=== PATIENT | female | born 1950 | race African-American/Black ===

== ENCOUNTER 2016-11-08 10:30 | Emergency (ER) | payer MEDICARE ==
[~2016-11-08] VITALS: Ht 157.5 cm; Wt 60.8 kg
[~2016-11-08 10:30] MED LIST: AMLO10TA2 PO; ASPI325T4 PO; BENZ100C2 PO; BIMA2.5D EACHEYE; CLOP75TA PO; CYCL10TA2 PO; FOLI0.8T21 PO; GLIP5TAB22 PO; HYDR-2666 PO; HYDR100T24 PO; HYDR12.58 PO; ISOS60TA2 PO; LOSA50TA6 PO; MELO-150 PO; METO25TA4 PO; SODI650T PO; SPIR25TA3 PO; TRAM50TA PO; VITA1CAP PO
--- NOTE | 2016-11-08 11:15 | ED.ADGEN ---
Past History Past Medical History: Bronchitis, Cancer, CHF, CVA, Diabetes, High Cholesterol , Hypertension, Renal Disease, Renal Failure Past Surgical History: Hysterectomy, Other Smoking: Cigarettes Alcohol Use: None Drug Use: None Adult General HPI HPI Patient is a 7 he 5-year-old female presents emergency department by EMS for chest pain. Patient was at dialysis she mentioned that she had had a few moments of chest pain earlier in the day. The subcutaneous dialysis as stated that she had a comfortable evaluation. Patient was not having chest pain at that time nor she had a sense. She did not want to come for evaluation but dialysis said they would not continue until she did. Patient has no other associated symptoms such as nausea, vomiting, diaphoresis, or dyspnea. Patient has had an GA in the past and states that the pain she felt earlier today was nothing similar. Review of Systems Review of Systems Constitutional: Denies fever or chills [] Eyes: Denies change in visual acuity, redness, or eye pain [] HENT: Denies nasal congestion or sore throat [] Respiratory: Denies cough or shortness of breath [] Cardiovascular: No additional information not addressed in HPI [] GI: Denies abdominal pain, nausea, vomiting, bloody stools or diarrhea [] : Denies dysuria or hematuria [] Musculoskeletal: Denies back pain or joint pain [] Integument: Denies rash or skin lesions [] Neurologic: Denies headache, focal weakness or sensory changes [] Endocrine: Denies polyuria or polydipsia [] Allergies Allergies Allergies Coded Allergies Type Severity Reaction Last Updated Verified DAISHA Inhibitors Allergy Intermediate 07/23/14 Yes Sulfa (Sulfonamide Antibiotics) Allergy Intermediate Rash 07/23/14 Yes atorvastatin Allergy Intermediate 07/23/14 Yes Physical Exam Physical Exam Constitutional: Well developed, well nourished, no acute distress, non-toxic appearance. [] HENT: Normocephalic, atraumatic, bilateral external ears normal, oropharynx moist, no oral exudates, nose normal. [] Eyes: PERRLA, EOMI, conjunctiva normal, no discharge. [] Neck: Normal range of motion, no tenderness, supple, no stridor. [] Cardiovascular:Heart rate regular rhythm, no murmur [] Lungs & Thorax: Bilateral breath sounds clear to auscultation [] Abdomen: Bowel sounds normal, soft, no tenderness, no masses, no pulsatile masses. [] Skin: Warm, dry, no erythema, no rash. [] Back: No tenderness, no CVA tenderness. [] Extremities: No tenderness, no cyanosis, no clubbing, ROM intact, no edema. [] Neurologic: Alert and oriented X 3, normal motor function, normal sensory function, no focal deficits noted. [] Psychologic: Affect normal, judgement normal, mood normal. [] Current Patient Data Vital Signs Vital Signs Date Time Temp Pulse Resp B/P Pulse Ox O2 Delivery O2 Flow Rate FiO2 11/08/16 11:37 72 18 148/58 100 Room Air Lab Results Laboratory Tests Test 11/08/16 11:08 11/08/16 11:09 POC Hemoglobin 10.9gm/dL POC Hematocrit 32% POC Sodium 142mmol/L (135-145) POC Potassium 4.1mmol/L (3.5-5.0) POC Chloride 104mmol/L (98-110) POC Total CO2 24mmol/L (23-32) Anion Gap 20mmol/L (6-14) H POC Blood Urea Nitrogen 51mg/dL (8-26) H POC Creatinine 9.5mg/dL (0.5-1.4) H Glucose Level 136mg/dL (60-99) H POC Ionized Calcium (Roni) 0.94mmol/L (1.13-1.32) L POC Troponin I 0.01ng/ml (<0.08) EKG EKG KD interpreted by me, normal sinus rhythm, 73 beats for minute, leftward axis, no ST segment elevation. No peaked t-waves[] Radiology/Procedures Radiology/Procedures [] Course & Med Decision Making Course & Med Decision Making Pertinent Labs and Imaging studies reviewed. (See chart for details) Patient remained asymptomatic. Her EKG and blood work are reassuring. She is being discharged to return to dialysis. She will return emergency department she develops any new or worsening symptoms. [] Final Impression Final Impression Chest pain [] Problems: Dragon Disclaimer Dragon Disclaimer This electronic medical record was generated, in whole or in part, using a voice recognition dictation system. CHRISTIANA CARVAJAL MD Nov 08, 2016 11:15
[2016-11-08 11:21] LABS: HEMOGLOBIN ISTAT 10.9 gm/dL; POTASSIUM ISTAT 4.1 mmol/L (3.5-5.0)
[2016-11-08 11:37] VITALS: BP 148/58
--- NOTE | 2016-11-09 08:11 | EKG ---
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
== END 2016-11-08 11:55 | disposition home or self-care (01) ==
LOC: ER 10:30
DX: R07.9 Chest pain, unspecified (principal); I13.0 Hypertensive heart and chronic kidney disease with heart failure and stage 1 through stage 4 chronic kidney disease, or unspecified chronic kidney disease; N18.9 Chronic kidney disease, unspecified; I50.9 Heart failure, unspecified; E11.22 Type 2 diabetes mellitus with diabetic chronic kidney disease; I25.2 Old myocardial infarction; F17.210 Nicotine dependence, cigarettes, uncomplicated; E78.00 Pure hypercholesterolemia, unspecified; Z86.73 Personal history of transient ischemic attack (TIA), and cerebral infarction without residual deficits; Z99.2 Dependence on renal dialysis; Z88.2 Allergy status to sulfonamides; Z88.8 Allergy status to other drugs, medicaments and biological substances
CPT/HCPCS: 80047; 84484; 93005; 99284-25

== ENCOUNTER 2017-02-16 09:17 | Emergency (ER) | payer MEDICARE ==
[~2017-02-16 09:17] MED LIST changes: -ASPI325T4 PO; +ASPI325T8 PO; +BENZ100C15 PO; -BENZ100C2 PO; +CYCL-331 PO; -CYCL10TA2 PO; -HYDR-2666 PO; +HYDR-2758 PO; -MELO-150 PO; +MELO15TA23 PO
--- NOTE | 2017-02-16 09:54 | PHYS DOC ---
Past History Past Medical History: Bronchitis, Cancer, CHF, CVA, Diabetes, High Cholesterol , Hypertension, Renal Disease, Renal Failure Past Surgical History: Hysterectomy, Other Smoking: Cigarettes Alcohol Use: None Drug Use: None Adult General Chief Complaint Chief Complaint: dizziness, altered mental status HPI HPI Patient is a 66 year old female who presents with complaint of generalized weakness. Patient states that she awoke at 8:00 this morning feeling very weak. Patient states that she ambulated herself to the restroom to urinate, upon trying to return, she stated that her legs were both very weak and unable to support her body weight. She states that her daughter came to her home and called EMS to have patient brought to the emergency department for evaluation. Patient states that she has been having dizziness but denies any chest pain, abdominal pain, fever, or unilateral weakness at this time. Patient states that she is unable lift her legs up off of the bed due to weakness. Patient denies any loss of sensation in her extremities. Patient has history of congestive heart failure and CVA. Patient follows a Dr. Karli Fu for primary care. Patient was last seen at her baseline at 2200 last night. Review of Systems Review of Systems Constitutional: Denies fever or chills [] Eyes: Denies change in visual acuity, redness, or eye pain [] HENT: Denies nasal congestion or sore throat [] Respiratory: Denies cough or shortness of breath [] Cardiovascular: Denies chest pain or edema [] GI: Denies abdominal pain, nausea, vomiting, bloody stools or diarrhea [] : Denies dysuria or hematuria [] Musculoskeletal: Denies back pain or joint pain [] Integument: Denies rash or skin lesions [] Neurologic: Generalized weakness, dizziness, denies focal weakness or sensory changes [] Current Medications Current Medications Current Medications Medications (Trade) Dose Ordered Sig/Deysi Start Time Stop Time Status Last Admin Dose Admin Sodium Chloride 500 ml @ 0 mls/hr 1X ONCE 02/16/17 09:45 02/16/17 09:46 UNV Allergies Allergies Allergies Coded Allergies Type Severity Reaction Last Updated Verified DAISHA Inhibitors Allergy Intermediate 07/23/14 Yes Sulfa (Sulfonamide Antibiotics) Allergy Intermediate Rash 07/23/14 Yes atorvastatin Allergy Intermediate 07/23/14 Yes Physical Exam Physical Exam Constitutional: Alert, afebrile, mild slurring speech. [] HENT: Normocephalic, atraumatic, bilateral external ears normal, oropharynx moist, no oral exudates, nose normal. [] Eyes: PERRLA, EOMI, conjunctiva normal, no discharge. [] Neck: Normal range of motion, no tenderness, supple, no stridor. [] Cardiovascular:Heart rate regular rhythm, no murmur [] Lungs & Thorax: Bilateral breath sounds clear to auscultation [] Abdomen: Bowel sounds normal, soft, no tenderness, no masses, no pulsatile masses. [] Skin: Warm, dry, no erythema, no rash. [] Back: No tenderness, no CVA tenderness. [] Extremities: No tenderness, no cyanosis, no clubbing, ROM intact, no edema. [] Neurologic: Alert and oriented X 3, 3 out of 5 strength in the bilateral lower extremities, 4 out of 5 strength in the bilateral upper extremities, left lateral visual field defect, jboss architect strength equal bilaterally. [] Current Patient Data Vital Signs Vital Signs Date Time Temp Pulse Resp B/P (MAP) Pulse Ox O2 Delivery O2 Flow Rate FiO2 02/16/17 10:43 81 16 193/108 (136) 100 02/16/17 09:17 97.9 Room Air Lab Results Laboratory Tests Test 02/16/17 09:35 White Blood Count 9.7 x10^3/uL Red Blood Count 3.50 x10^6/uL Hemoglobin 10.1 g/dL Hematocrit 30.3 % Mean Corpuscular Volume 87 fL Mean Corpuscular Hemoglobin 29 pg Mean Corpuscular Hemoglobin Concent 33 g/dL Red Cell Distribution Width 14.6 % Platelet Count 282 x10^3/uL Neutrophils (%) (Auto) 57 % Lymphocytes (%) (Auto) 31 % Monocytes (%) (Auto) 11 % Eosinophils (%) (Auto) 1 % Basophils (%) (Auto) 1 % Neutrophils # (Auto) 5.5 x10^3uL Lymphocytes # (Auto) 3.0 x10^3/uL Monocytes # (Auto) 1.0 x10^3/uL Eosinophils # (Auto) 0.1 x10^3/uL Basophils # (Auto) 0.1 x10^3/uL Sodium Level 143 mmol/L Potassium Level 4.0 mmol/L Chloride Level 101 mmol/L Carbon Dioxide Level 34 mmol/L Anion Gap 8 Blood Urea Nitrogen 25 mg/dL Creatinine 7.6 mg/dL Estimated GFR (Cockcroft-Gault) 6.5 BUN/Creatinine Ratio 3 Glucose Level 102 mg/dL Calcium Level 9.2 mg/dL Magnesium Level 2.4 mg/dL Total Bilirubin 0.3 mg/dL Aspartate Amino Transf (AST/SGOT) 24 U/L Alanine Aminotransferase (ALT/SGPT) < 6 U/L Alkaline Phosphatase 115 U/L Troponin I Quantitative 0.440 ng/mL XL-Pru-S-Type Natriuretic Peptide 68157 pg/mL Total Protein 7.6 g/dL Albumin 3.6 g/dL Albumin/Globulin Ratio 0.9 Current Medications Medications (Trade) Dose Ordered Sig/Deysi Route PRN Reason Start Time Stop Time Status Last Admin Dose Admin Sodium Chloride 500 ml @ 0 mls/hr 1X ONCE IV 02/16/17 10:30 02/16/17 10:31 DC Lidocaine/ Prilocaine (Emla) 5 mark STK-MED ONCE TP 02/16/17 10:16 02/16/17 10:17 DC EKG EKG Interpreted by me: Heart rate 73, sinus rhythm, normal intervals, left axis deviation, no acute ST/T-wave abnormalities present [] Radiology/Procedures Radiology/Procedures [address] [address] IMAGING REPORT Signed PATIENT: FAIZAN ROJAS ACCOUNT: [id number] : 1950 LOCATION: ER AGE: 66 SEX: F EXAM STATUS: PRE ER ORD. PHYSICIAN: JENIFER NGUYỄN MD REASON: weakness, history of CHF PROCEDURE: PORTABLE CHEST 1V Portable chest, 02/16/2017: History: Weakness, congestive heart failure Comparison is made to a study from 07/07/2016. The heart size and pulmonary vascularity are normal. There is calcific plaquing and mild tortuosity of the thoracic aorta. No pulmonary infiltrate is seen. There is no evidence of pleural fluid. IMPRESSION: No acute cardiopulmonary abnormality is detected. DICTATED AND SIGNED BY: LIMA PALMA MD DATE: 02/16/17 1026 CC: KARLI RUTHERFORD DO; JENIFER NGUYỄN MD ~ [address] [address] IMAGING REPORT Signed PATIENT: FAIZAN ROJAS ACCOUNT: [id number] : 1950 LOCATION: ER AGE: 66 SEX: F EXAM STATUS: PRE ER ORD. PHYSICIAN: JENIFER NGUYỄN MD REASON: generalized weakness PROCEDURE: CT HEAD WO CONTRAST CT of the head without contrast, 02/16/2017: History: Generalized body weakness Comparison is made to a study from 12/28/2013. There is an unchanged lucency within the anterolateral aspect of the right basal ganglia compatible with an old infarct. The ventricles are within normal limits in size. There is no shift of the midline structures. There is no evidence of acute intracranial hemorrhage or mass effect. No abnormal extra-axial fluid collection or mass is seen. IMPRESSION: 1. Old right basal ganglia infarct. 2. No acute intracranial abnormality is detected. PQRS Compliance Statement: One or more of the following individualized dose reduction techniques were utilized for this examination: 1. Automated exposure control 2. Adjustment of the mA and/or kV according to patient size 3. Use of iterative reconstruction technique DICTATED AND SIGNED BY: LIMA PALMA MD DATE: 02/16/17 1102 CC: KARLI RUTHERFORD DO; JENIFER NGUYỄN MD ~ [] Course & Med Decision Making Course & Med Decision Making Pertinent Labs and Imaging studies reviewed. (See chart for details) The patient has an NIHSS score of 10 defined by moderate to severe weakness of the bilateral lower extremities, mild sensory loss along left forehead, mild slurring of speech, left lateral visual field loss, and moderate limb ataxia of the lower extremities. The patient was also found to have elevated troponin level which may be related to patient's end-stage renal disease. The patient's EKG does not show acute evidence of ischemia at this time. Patient's CT of the head shows no acute findings. The onset of patient's symptoms cannot be verified as patient awoke with the symptoms and her last known well was at 2200 yesterday. The patient does not meet criteria for administration of TPA. Patient started on oral aspirin. The patient however will need admission to the hospital for further care and workup. The patient's daughter who has DURABLE POWER OF CRUTCHING CONTRACTOR as requested that the patient be admitted at [facility] for further care. She has requested this despite the patient being a candidate for admission at [facility]. Due to patient's family's wishes, [facility] was contacted. After discussing the case, the patient was accepted for admission by Dr. Barragan at 1140. The patient was transferred at 1420 by ground ambulance to [facility] in stable condition. Dragon Disclaimer Dragon Disclaimer This chart was dictated in whole or in part using Voice Recognition software in a busy, high-work load, and often noisy Emergency Department environment. It may contain unintended and wholly unrecognized errors or omissions. Departure Departure: Impression: Primary Impression: Weakness of both legs Additional Impressions: End stage renal disease Congestive heart failure Elevated troponin level Essential hypertension History of CVA (cerebrovascular accident) Disposition: 05 XFER OTHER Condition: STABLE Referrals: KARLI RUTHERFORD DO (PCP) Problem Qualifiers Additional Impressions: Congestive heart failure Congestive heart failure type: unspecified congestive heart failure type Congestive heart failure chronicity: unspecified congestive heart failure chronicity Qualified Codes: I50.9 - Heart failure, unspecified JENIFER NGUYỄN MD Feb 16, 2017 09:54
[2017-02-16 09:57] LABS: BASO # 0.1 x10^3/uL (0.0-0.2); BASO % 1 % (0-3); EOS # 0.1 x10^3/uL (0.0-0.7); EOS % 1 % (0-3); HEMATOCRIT 30.3 % (36.0-47.0); HEMOGLOBIN 10.1 g/dL (12.0-15.5); LYMPH % 31 % (24-48); MEAN CORPUSCULAR HEMOGLOBIN 29 pg (25-35); MEAN CORPUSCULAR HGB CONC 33 g/dL (31-37); MEAN CORPUSCULAR VOLUME 87 fL (79-100); MONO % 11 % (0-9); NEUT # 5.5 x10^3uL (1.8-7.7); NEUT % 57 % (31-73); PLATELET COUNT 282 x10^3/uL (140-400); RED CELL DISTRIBUTION WIDTH 14.6 % (11.5-14.5); WHITE BLOOD COUNT 9.7 x10^3/uL (4.0-11.0)
[2017-02-16 10:15] LABS: ALBUMIN 3.6 g/dL (3.4-5.0); ALBUMIN/GLOBULIN RATIO 0.9 (1.0-1.7); ALK PHOS 115 U/L (46-116); ANION GAP 8 (6-14); AST (SGOT) 24 U/L (15-37); BLOOD UREA NITROGEN 25 mg/dL (7-20); BUN/CREATININE RATIO 3 (6-20); CALCIUM 9.2 mg/dL (8.5-10.1); CARBON DIOXIDE 34 mmol/L (21-32); CHLORIDE 101 mmol/L (98-107); CREATININE 7.6 mg/dL (0.6-1.0); GFR 6.5; GLUCOSE 102 mg/dL (70-99); MAGNESIUM 2.4 mg/dL (1.8-2.4); SODIUM 143 mmol/L (136-145); TOTAL BILIRUBIN 0.3 mg/dL (0.2-1.0); TOTAL PROTEIN 7.6 g/dL (6.4-8.2)
[2017-02-16] MEDS ORDERED: LIDOCAINE/PRILOCAINE TOPICAL CREAM 5GM TUBE. TP ONE (10:16)
[2017-02-16 10:17] LABS: ALT (SGPT) < 6 U/L (14-59)
[2017-02-16] MEDS ORDERED: IV NORMAL SALINE 500ML 500 ML IV ONE (10:30)
--- NOTE | 2017-02-16 10:31 | RAD ---
Portable chest, 02/16/2017: History: Weakness, congestive heart failure Comparison is made to a study from 07/07/2016. The heart size and pulmonary vascularity are normal. There is calcific plaquing and mild tortuosity of the thoracic aorta. No pulmonary infiltrate is seen. There is no evidence of pleural fluid. IMPRESSION: No acute cardiopulmonary abnormality is detected.
--- NOTE | 2017-02-16 11:06 | RAD ---
CT of the head without contrast, 02/16/2017: History: Generalized body weakness Comparison is made to a study from 12/28/2013. There is an unchanged lucency within the anterolateral aspect of the right basal ganglia compatible with an old infarct. The ventricles are within normal limits in size. There is no shift of the midline structures. There is no evidence of acute intracranial hemorrhage or mass effect. No abnormal extra-axial fluid collection or mass is seen. IMPRESSION: 1. Old right basal ganglia infarct. 2. No acute intracranial abnormality is detected. PQRS Compliance Statement: One or more of the following individualized dose reduction techniques were utilized for this examination: 1. Automated exposure control 2. Adjustment of the mA and/or kV according to patient size 3. Use of iterative reconstruction technique
[2017-02-16 12:23] LABS: BACTERIA,URINE 0 /HPF (0-FEW); BILIRUBIN,URINE NEG (NEG); CLARITY,URINE CLEAR; COLOR,URINE YELLOW; GLUCOSE,URINE NEG (NEG); NITRITE,URINE NEG (NEG); UROBILINOGEN,URINE 0.2 mg/dL (0.2 mg/dL); WBC,URINE 0 /HPF (0-4)
[2017-02-16] MEDS ORDERED: ASPIRIN 81 MG TAB.CHEW PO ONE (13:50)
[2017-02-16 14:00] VITALS: BP 196/83
--- NOTE | 2017-02-16 15:09 | EKG ---
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
== END 2017-02-16 14:16 | disposition short-term general hospital (02) ==
LOC: ER 09:17
DX: R53.1 Weakness (principal); I13.2 Hypertensive heart and chronic kidney disease with heart failure and with stage 5 chronic kidney disease, or end stage renal disease; N18.6 End stage renal disease; I50.9 Heart failure, unspecified; E11.22 Type 2 diabetes mellitus with diabetic chronic kidney disease; R29.710 NIHSS score 10; R79.89 Other specified abnormal findings of blood chemistry; F17.210 Nicotine dependence, cigarettes, uncomplicated; E78.00 Pure hypercholesterolemia, unspecified; Z86.73 Personal history of transient ischemic attack (TIA), and cerebral infarction without residual deficits; Z88.8 Allergy status to other drugs, medicaments and biological substances; Z88.2 Allergy status to sulfonamides
CPT/HCPCS: 36415; 51701; 70450; 71010; 80053; 81001; 83735; 83880; 84484; 85027; 93005; 99285; J7040

== ENCOUNTER 2017-02-24 11:20 | Emergency (ER) | payer MEDICARE, MEDICAID ==
[2017-02-24] MEDS ORDERED: 0.9 % SODIUM CHLORIDE 10 ML DISP.SYRIN. IV PRN (11:30)
[2017-02-24] MEDS ORDERED: HALOPERIDOL LACT 5 MG/ML VIAL. ONE (11:30)
[2017-02-24] MEDS ORDERED: LORazepam 2 MG/ML VIAL ONE (11:30)
[2017-02-24] MEDS ORDERED: HALOPERIDOL LACT 5 MG/ML VIAL. IM ONE (12:00)
[2017-02-24] MEDS ORDERED: LORazepam 2 MG/ML VIAL IM ONE (12:00)
[2017-02-24 12:08] LABS: BASO # 0.1 x10^3/uL (0.0-0.2); BASO % 1 % (0-3); EOS # 0.1 x10^3/uL (0.0-0.7); EOS % 1 % (0-3); HEMATOCRIT 30.4 % (36.0-47.0); LYMPH # 1.9 x10^3/uL (1.0-4.8); LYMPH % 24 % (24-48); MEAN CORPUSCULAR HEMOGLOBIN 29 pg (25-35); MEAN CORPUSCULAR HGB CONC 33 g/dL (31-37); MEAN CORPUSCULAR VOLUME 88 fL (79-100); MONO # 0.6 x10^3/uL (0.0-1.1); MONO % 8 % (0-9); NEUT # 5.2 x10^3uL (1.8-7.7); NEUT % 67 % (31-73); PLATELET COUNT 233 x10^3/uL (140-400); RED BLOOD COUNT 3.45 x10^6/uL (3.50-5.40); RED CELL DISTRIBUTION WIDTH 15.5 % (11.5-14.5); WHITE BLOOD COUNT 7.9 x10^3/uL (4.0-11.0)
--- NOTE | 2017-02-24 12:16 | EKG ---
[address] [address] Test Date: 2017-02-24 Test Time: 12:10:35 Pat Name: FAIZAN ROJAS Department: Room: Gender: F Head Of English: SHRUTI : 1950 Requested By: MALIK HOOK Order Number: [id number] Reading MD: Measurements Intervals [place] Rate: 58 P: 19 [place]: 138 QRS: -34 QRSD: 94 T: -64 QT: 472 QTc: 467 Interpretive Statements SINUS RHYTHM ABNORMAL LEFT AXIS DEVIATION LEFT ANTERIOR FASCICULAR BLOCK T ABNORMALITY IN INFERIOR LEADS RI6.01 Unconfirmed report No previous ECG available for comparison
--- NOTE | 2017-02-24 12:22 | PHYS DOC ---
Past History Past Medical History: Bronchitis, Cancer, CHF, CVA, Diabetes, High Cholesterol , Hypertension, Renal Disease, Renal Failure Past Surgical History: Hysterectomy, Other Smoking: Cigarettes Alcohol Use: None Drug Use: None Adult General Chief Complaint Chief Complaint: ALTERED MENTAL STATUS HPI HPI Patient is a pleasant 66-year-old female with a known history of prior stroke and residual deficit, and stage renal disease on dialysis who presents with altered mental status that began sometime during the evening. Patient apparently last evening was complaining about pain in her lower legs as well as her arms which is not new for her. She was found this morning moaning on the floor via her family. She is not able to get a history most the history is provided by EMS and the report. History was provided by daughter who lives at home with mom. Apparently yesterday during her dialysis she complained of a mild persistent headache. She does also complain of lower leg pain which is not new for patient for which she has her symptoms typically do worry about some more sinister problem. This morning she was found in the bathroom by her granddaughter who happened to standing position. There is no apparent trauma no injury to her head and neck, sHe was complaining about the time. Patient has had no change in medications, no change in her dialysis regimen. Other than the fact that she was there for a short period time normal. sHe has daily persistent nausea and vomiting with every meal. Although she is able to keep her medications down and sometimes she regurgitates them and they used an oral antiemetic doubt. Achieve some comfort. Family denies any fever, chills or other symptoms Patient's dialysis dry weight is 57.7 kg. Review of Systems Review of Systems EMSs provided the review of systems at this time. Constitutional: Denies fever or chills [] Eyes: Denies change in visual acuity, redness, or eye pain [] HENT: Denies nasal congestion or sore throat [] Respiratory: Denies cough or shortness of breath [] Cardiovascular: No additional information not addressed in HPI [] GI: Denies abdominal pain, nausea, vomiting, bloody stools or diarrhea [] : Denies dysuria or hematuria [] Musculoskeletal: According to EMS patient was complaining of lower back pain and extremity pain. Integument: Denies rash or skin lesions [] Neurologic: Patient was complaining about no specific weakness but leg pain. Endocrine: Denies polyuria or polydipsia [] Current Medications Current Medications Current Medications Medications (Trade) Dose Ordered Sig/Deysi Start Time Stop Time Status Last Admin Dose Admin Haloperidol Lactate (Haldol) 5 mg STK-MED ONCE 02/24/17 11:30 02/24/17 11:31 DC Lorazepam (Ativan) 2 mg STK-MED ONCE 02/24/17 11:30 02/24/17 11:31 DC Sodium Chloride (Normal Saline Flush) 10 ml QSHIFT PRN 02/24/17 11:30 Allergies Allergies Allergies Coded Allergies Type Severity Reaction Last Updated Verified DAISHA Inhibitors Allergy Intermediate 07/23/14 Yes Sulfa (Sulfonamide Antibiotics) Allergy Intermediate Rash 07/23/14 Yes atorvastatin Allergy Intermediate 07/23/14 Yes Physical Exam Physical Exam Since vital signs reviewed patient not hypoxic patient with a saturation of 9897 % on room air patient is nonhypertensive vital signs are within normal limits to include respiratory 06-07 patient's afebrile. Constitutional: Well developed, well nourished, this patient is seeming agitated moving all extremities spontaneously with spontaneous eye opening and moaning. She is not willing or able to follow instructions although she will localize to pain. HENT: Normocephalic, atraumatic, bilateral external ears normal, dry mucous membranes with poor dentition. No oral exudates, nose normal. [] Eyes: PERRLA, EOMI, conjunctiva normal, no discharge. [] Neck: Normal range of motion, no tenderness, supple, no stridor. Sonorous respirations [] Cardiovascular:Heart rate regular rhythm, no murmur [] Lungs & Thorax: Bilateral breath sounds clear to auscultation occasional rhonchi at the bases bilaterally. Abdomen: Bowel sounds normal, soft, no tenderness, no masses, no pulsatile masses. [] Skin: Warm, dry, no ecchymoses, erythema palpable thrill over her AV fistula. Back: No obvious signs of trauma. Extremities: No obvious signs of trauma or deformity. No cyanosis no clubbing noted. No peripheral edema. She moves all limbs spontaneously. Neurologic: Patient is moaning not able to comply with any request for this patient in neurologic exam. Psychologic: Not obtained or measured. Current Patient Data Lab Results Laboratory Tests Test 02/24/17 11:40 02/24/17 12:01 White Blood Count 7.9 x10^3/uL (4.0-11.0) Red Blood Count 3.45 x10^6/uL (3.50-5.40) L Hemoglobin 10.0 g/dL (12.0-15.5) L Hematocrit 30.4 % (36.0-47.0) L Mean Corpuscular Volume 88 fL (79-100) Mean Corpuscular Hemoglobin 29 pg (25-35) Mean Corpuscular Hemoglobin Concent 33 g/dL (31-37) Red Cell Distribution Width 15.5 % (11.5-14.5) H Platelet Count 233 x10^3/uL (140-400) Neutrophils (%) (Auto) 67 % (31-73) Lymphocytes (%) (Auto) 24 % (24-48) Monocytes (%) (Auto) 8 % (0-9) Eosinophils (%) (Auto) 1 % (0-3) Basophils (%) (Auto) 1 % (0-3) Neutrophils # (Auto) 5.2 x10^3uL (1.8-7.7) Lymphocytes # (Auto) 1.9 x10^3/uL (1.0-4.8) Monocytes # (Auto) 0.6 x10^3/uL (0.0-1.1) Eosinophils # (Auto) 0.1 x10^3/uL (0.0-0.7) Basophils # (Auto) 0.1 x10^3/uL (0.0-0.2) Erythrocyte Sedimentation Rate Pending Sodium Level 145 mmol/L (136-145) Potassium Level 4.2 mmol/L (3.5-5.1) Chloride Level 104 mmol/L (98-107) Carbon Dioxide Level 35 mmol/L (21-32) H Anion Gap 6 (6-14) Blood Urea Nitrogen 26 mg/dL (7-20) H Creatinine 7.7 mg/dL (0.6-1.0) H Estimated GFR (Cockcroft-Gault) 6.4 BUN/Creatinine Ratio 3 (6-20) L Glucose Level 150 mg/dL (70-99) H Lactic Acid Level 0.9 mmol/L (0.4-2.0) Calcium Level 9.3 mg/dL (8.5-10.1) Magnesium Level 2.2 mg/dL (1.8-2.4) Total Bilirubin 0.3 mg/dL (0.2-1.0) Aspartate Amino Transferase (AST) 17 U/L (15-37) Alanine Aminotransferase (ALT) 17 U/L (14-59) Alkaline Phosphatase 104 U/L (46-116) Creatine Kinase 53 U/L (26-192) Creatine Kinase MB (Mass) 0.6 ng/mL (0.0-3.6) Creatine Kinase MB Relative Index 1.1 % (0-4) Troponin I Quantitative 0.037 ng/mL (0-0.055) Total Protein 7.7 g/dL (6.4-8.2) Albumin 3.5 g/dL (3.4-5.0) Albumin/Globulin Ratio 0.8 (1.0-1.7) L Prothrombin Time 10.3 SEC (9.4-11.4) Prothrombin Time INR 1.0 (0.9-1.1) PTT 23 SEC (23-33) Laboratory Tests Test 02/24/17 11:40 02/24/17 12:01 White Blood Count 7.9 x10^3/uL (4.0-11.0) Red Blood Count 3.45 x10^6/uL (3.50-5.40) L Hemoglobin 10.0 g/dL (12.0-15.5) L Hematocrit 30.4 % (36.0-47.0) L Mean Corpuscular Volume 88 fL (79-100) Mean Corpuscular Hemoglobin 29 pg (25-35) Mean Corpuscular Hemoglobin Concent 33 g/dL (31-37) Red Cell Distribution Width 15.5 % (11.5-14.5) H Platelet Count 233 x10^3/uL (140-400) Neutrophils (%) (Auto) 67 % (31-73) Lymphocytes (%) (Auto) 24 % (24-48) Monocytes (%) (Auto) 8 % (0-9) Eosinophils (%) (Auto) 1 % (0-3) Basophils (%) (Auto) 1 % (0-3) Neutrophils # (Auto) 5.2 x10^3uL (1.8-7.7) Lymphocytes # (Auto) 1.9 x10^3/uL (1.0-4.8) Monocytes # (Auto) 0.6 x10^3/uL (0.0-1.1) Eosinophils # (Auto) 0.1 x10^3/uL (0.0-0.7) Basophils # (Auto) 0.1 x10^3/uL (0.0-0.2) Erythrocyte Sedimentation Rate Pending Lactic Acid Level 0.9 mmol/L (0.4-2.0) Troponin I Quantitative 0.037 ng/mL (0-0.055) Prothrombin Time 10.3 SEC (9.4-11.4) Prothrombin Time INR 1.0 (0.9-1.1) PTT 23 SEC (23-33) Laboratory Tests Test 02/24/17 11:40 White Blood Count 7.9 x10^3/uL (4.0-11.0) Red Blood Count 3.45 x10^6/uL (3.50-5.40) L Hemoglobin 10.0 g/dL (12.0-15.5) L Hematocrit 30.4 % (36.0-47.0) L Mean Corpuscular Volume 88 fL (79-100) Mean Corpuscular Hemoglobin 29 pg (25-35) Mean Corpuscular Hemoglobin Concent 33 g/dL (31-37) Red Cell Distribution Width 15.5 % (11.5-14.5) H Platelet Count 233 x10^3/uL (140-400) Neutrophils (%) (Auto) 67 % (31-73) Lymphocytes (%) (Auto) 24 % (24-48) Monocytes (%) (Auto) 8 % (0-9) Eosinophils (%) (Auto) 1 % (0-3) Basophils (%) (Auto) 1 % (0-3) Neutrophils # (Auto) 5.2 x10^3uL (1.8-7.7) Lymphocytes # (Auto) 1.9 x10^3/uL (1.0-4.8) Monocytes # (Auto) 0.6 x10^3/uL (0.0-1.1) Eosinophils # (Auto) 0.1 x10^3/uL (0.0-0.7) Basophils # (Auto) 0.1 x10^3/uL (0.0-0.2) Erythrocyte Sedimentation Rate Pending EKG EKG [] EKG timed 12:10 PM demonstrates a normal sinus rhythm 58 with a normal KS interval 138 Abdias normal 94. Patient's QTc is normal 467. There is left axis deviation and left anterior fascicular block and no ST segment T-wave changes consistent with acute cardiac ischemia although there is T-wave inversion in the inferior leads. Radiology/Procedures Radiology/Procedures [] [address] [address] IMAGING REPORT Signed PATIENT: FAIZAN ROJAS ACCOUNT: [id number] : 1950 LOCATION: ER AGE: 66 SEX: F EXAM STATUS: REG ER ORD. PHYSICIAN: MALIK HOOK MD REASON: ams PROCEDURE: CT HEAD WO CONTRAST CT of the head without contrast, 02/24/2017: History: Altered mental status Comparison is made to a study from 02/16/2017. There is an unchanged lucency along the anterolateral aspect of the right basal ganglia compatible with an old infarct. The ventricles are within normal limits in size. There is no shift of the midline structures. There is no evidence of acute intracranial hemorrhage or mass effect. A vague lucency within the right side of the sara seen on one image is probably artifactual. No abnormal extra-axial fluid collection or mass is seen. IMPRESSION: 1. Old right basal ganglia infarct. 2. No acute abnormality is detected. PQRS Compliance Statement: One or more of the following individualized dose reduction techniques were utilized for this examination: 1. Automated exposure control 2. Adjustment of the mA and/or kV according to patient size 3. Use of iterative reconstruction technique DICTATED AND SIGNED BY: LIMA PALMA MD DATE: 02/24/17 1224 CC: KARLI RUTHERFORD DO; MALIK HOOK MD ~ [address] [place] [id number] IMAGING REPORT Signed PATIENT: FAIZAN ROJAS ACCOUNT: [id number] : 1950 LOCATION: ER AGE: 66 SEX: F EXAM STATUS: REG ER ORD. PHYSICIAN: MALIK HOOK MD REASON: ams PROCEDURE: CHEST AP ONLY Portable chest, 02/24/2017: History: Altered mental status Comparison is made to a study from 02/16/2017. The heart is at the upper limits of normal in size. There is calcific plaquing and tortuosity of the aorta. The pulmonary vascularity is normal. No pulmonary infiltrates are seen. There is no evidence of pleural fluid. IMPRESSION: No acute cardiopulmonary abnormality is detected. DICTATED AND SIGNED BY: LIMA PALMA MD DATE: 02/24/17 1221 CC: KARLI RUTHERFORD DO; MALIK HOOK MD ~ Course & Med Decision Making Course & Med Decision Making Pertinent Labs and Imaging studies reviewed. (See chart for details) []My syncope ams differential includes but not limited to: Neurally mediated vasovagal syncope, situational syncope, cardiac sinus syncope , orthostatic hypertension, medications, psychiatric interventions, neurologic syncope, cardiogenic syncopal B, to include organic heart disease congestive heart failure, cardiac dysrhythmia, seizure disorder, stroke or transient ischemic attack, bradycardia dysrhythmias, tachycardia dysrhythmias, PT, V. fib V. fib, cardiac abnormalities like first degree secondary third-degree AV blocks , prolonged QT, hypertrophic John myopathy, severe pulmonic stenosis, pulmonary arterial hypertension, atrial myxomas, aortic stenosis, valvular failure, alcohol consumption, adrenal insufficiency, drug effects from things like antidepressants, antihypertensive agents like beta blockers, vasodilators including calcium channel blockers and nitrates, autonomic insufficiency. Upon arrival very concerning for intracranial hemorrhage or stroke given her history of prior stroke with no residual deficits after physical therapy. She also has history of hypertension end-stage renal disease requiring dialysis and hypercholesterolemia. All of these issues put her at increased risk for end- stage cardiovascular and CVS vascular structure issues. Impression CT reported at approximately 10 without signs of intercranial hemorrhage, mass or bleed. She is resting comfortably after the Ativan and Haldol given IM given her state of confusion and agitation upon arrival. Signs been very stable with a heart rate in the mid 70s. Patient's blood pressure been 132/67. Patient's saturations are 97-98% on 2 L nasal cannulas. Normal receives as all of her care at family has requested transfer at this time. Patient was not giving any pain medications or narcotics last night for her pain. She is on her typical regimen for her blood pressure, cholesterol and her end-stage renal disease. At this point time is now 12:39 pm Patient is troponin is negative, patient's CBC is normal with a mild anemia only likely secondary to chronic renal disease. EKG chest x-ray and head CT are unremarkable. [employer] note: [facility] Consultant called at of the service transfer team called at 12:53 PM Consult called back at 12:54 PM Discussed the case I presented and they agreed with admission. Time of acceptance Discussed at length with the triage nurse I do not believe this is patient is suffering a stroke. It is unclear the presentation based in all to mental status although on arrival she is moving all rectum spontaneously trying to sit up as well with demonstrated a no truncal ataxia. Patient is moaning not able to be compliant with exam. At this time with a negative head CT because the timetable of last known well at 2100 patient is not a candidate for TPA. He may benefit from a CT angios of the head of course we cannot do this at this facility because we have no intervention at this time. Patient at the request of family be transferred to except. Awaiting disposition. All back at 14:45 PM still waiting for an accepting physician asked us to secure an ABG given patient's increased bicarbonate levels. ABG drawn at 1440 6 PM demonstrates a pH of 7.48 also a bicarbonate level of 33 a PCO2 of 45 and a PO2 of 81% on room air. This is an unimpressive ABG. Results were called back to transfer [place] at approximately 1510. Still waiting for bed assignment and physician acceptance. transfer center finally called back at 3:45 PM with accepting physician although they still don't have a pleasant assignment. Impression: Altered mental status unclear etiology, acute agitation. Dragon Disclaimer Dragon Disclaimer This chart was dictated in whole or in part using Voice Recognition software in a busy, high-work load, and often noisy Emergency Department environment. It may contain unintended and wholly unrecognized errors or omissions. Departure Departure: Impression: Primary Impression: Essential hypertension Additional Impressions: Altered mental status, unspecified End stage renal disease on dialysis Disposition: 02 XFER SHT-TRM HOSP Condition: GUARDED Referrals: KARLI RUTHERFORD DO (PCP) Problem Qualifiers MALIK HOOK MD Feb 24, 2017 12:22
--- NOTE | 2017-02-24 12:25 | RAD ---
Portable chest, 02/24/2017: History: Altered mental status Comparison is made to a study from 02/16/2017. The heart is at the upper limits of normal in size. There is calcific plaquing and tortuosity of the aorta. The pulmonary vascularity is normal. No pulmonary infiltrates are seen. There is no evidence of pleural fluid. IMPRESSION: No acute cardiopulmonary abnormality is detected.
--- NOTE | 2017-02-24 12:28 | RAD ---
CT of the head without contrast, 02/24/2017: History: Altered mental status Comparison is made to a study from 02/16/2017. There is an unchanged lucency along the anterolateral aspect of the right basal ganglia compatible with an old infarct. The ventricles are within normal limits in size. There is no shift of the midline structures. There is no evidence of acute intracranial hemorrhage or mass effect. A vague lucency within the right side of the sara seen on one image is probably artifactual. No abnormal extra-axial fluid collection or mass is seen. IMPRESSION: 1. Old right basal ganglia infarct. 2. No acute abnormality is detected. PQRS Compliance Statement: One or more of the following individualized dose reduction techniques were utilized for this examination: 1. Automated exposure control 2. Adjustment of the mA and/or kV according to patient size 3. Use of iterative reconstruction technique
[2017-02-24 12:38] LABS: ALBUMIN 3.5 g/dL (3.4-5.0); ALBUMIN/GLOBULIN RATIO 0.8 (1.0-1.7); CALCIUM 9.3 mg/dL (8.5-10.1); CREATININE 7.7 mg/dL (0.6-1.0); GFR 6.4; MAGNESIUM 2.2 mg/dL (1.8-2.4); POTASSIUM 4.2 mmol/L (3.5-5.1); TOTAL BILIRUBIN 0.3 mg/dL (0.2-1.0); TOTAL PROTEIN 7.7 g/dL (6.4-8.2)
[2017-02-24 12:43] VITALS: BP 179/63
[2017-02-24 13:00] LABS: BACTERIA,URINE 0 /HPF (0-FEW); BILIRUBIN,URINE NEG (NEG); CLARITY,URINE CLEAR; COLOR,URINE YELLOW; GLUCOSE,URINE NEG (NEG); NITRITE,URINE NEG (NEG); UROBILINOGEN,URINE 0.2 mg/dL (0.2 mg/dL)
[2017-02-24 13:01] LABS: HYALINE CASTS, URINE OCC /HPF
[2017-02-24 13:12] LABS: SEDIMENTATION RATE 56 (0-25)
[2017-02-24 15:05] LABS: BGAS PH 7.48 (7.35-7.45)
== END 2017-02-24 18:51 | disposition short-term general hospital (02) ==
LOC: ER 11:20
DX: R41.82 Altered mental status, unspecified (principal); E11.22 Type 2 diabetes mellitus with diabetic chronic kidney disease; I13.2 Hypertensive heart and chronic kidney disease with heart failure and with stage 5 chronic kidney disease, or end stage renal disease; I50.9 Heart failure, unspecified; N18.6 End stage renal disease; E78.00 Pure hypercholesterolemia, unspecified; F17.210 Nicotine dependence, cigarettes, uncomplicated; Z99.2 Dependence on renal dialysis; Z86.73 Personal history of transient ischemic attack (TIA), and cerebral infarction without residual deficits; Z88.2 Allergy status to sulfonamides; Z88.8 Allergy status to other drugs, medicaments and biological substances
CPT/HCPCS: 36415; 51702; 70450; 71010; 80053; 81001; 82553; 82803; 83605; 83735; 84443; 84484; 85027; 85610; 85651; 85730; 93005; 96372; 99285; J1630; J2060

== ENCOUNTER 2018-03-10 07:38 | Emergency (ER) | payer MEDICAID, MEDICARE ==
[~2018-03-10] VITALS: Ht 157.5 cm; Wt 60.8 kg
[~2018-03-10 07:38] MED LIST changes: -AMLO10TA2 PO; +AMLO10TA6 PO; +BENZ-8 PO; -BENZ100C15 PO; -LOSA50TA6 PO; +LOSA50TA7 PO; -SPIR25TA3 PO; +SPIR25TA5 PO
--- NOTE | 2018-03-10 07:52 | PHYS DOC ---
Past History Past Medical History: Bronchitis, Cancer, CHF, CVA, Diabetes, High Cholesterol , Hypertension, Renal Disease, Renal Failure Past Surgical History: Hysterectomy, Other Smoking: Cigarettes Alcohol Use: None Drug Use: None Adult General Chief Complaint Chief Complaint: Altered level of consciousness HPI HPI 67-year-old female patient with history of chronic renal failure on dialysis brought in by EMS because of altered level of consciousness. Patient had vomiting last night and did not acting like her usual and this morning missed her dialysis. EMS reported that family and consumer education teacher had blood pressure of 300 but their checking was only 150. Patient is able to tell her name with unclear voice and unable to give history. Review of Systems Review of Systems Unable to obtain because of medical condition Allergies Allergies Allergies Coded Allergies Type Severity Reaction Last Updated Verified DAISHA Inhibitors Allergy Intermediate 07/23/14 Yes Sulfa (Sulfonamide Antibiotics) Allergy Intermediate Rash 07/23/14 Yes atorvastatin Allergy Intermediate 07/23/14 Yes Physical Exam Physical Exam Constitutional: Agitated, moderate distress, non-toxic appearance. [] HENT: Normocephalic, atraumatic, good gag reflex, no oral exudates, nose normal. [] Eyes: PERRLA Neck: Normal range of motion, no tenderness, supple, no stridor. [] Cardiovascular:Heart rate regular rhythm, no murmur [] Lungs & Thorax: Mild respiratory distress with bibasilar rhonchi Abdomen: Bowel sounds normal, soft, no tenderness, no masses, no pulsatile masses. [] Skin: Warm, dry, no erythema, no rash. [] Back: No tenderness, no CVA tenderness. [] Extremities: No tenderness, no cyanosis, no clubbing, ROM intact, no edema. [] Neurologic: Awake, oriented 1, unclear speech, moving all extremities, unable to complete neuro exam because of altered level of consciousness EKG EKG EKG interpreted by me. EKG at 0742 showed normal sinus rhythm at rate of 71, abnormal left axis deviation, left anterior fascicular block, LVH, prolonged QT at 444, no acute ST and T-wave abnormalities.[] Radiology/Procedures Radiology/Procedures [][address] [address] IMAGING REPORT Signed PATIENT: FAIZAN ROJAS ACCOUNT: [id number] : 1950 LOCATION: ER AGE: 67 SEX: F EXAM STATUS: REG ER ORD. PHYSICIAN: ILENE RIVERA MD REASON: ALOC PROCEDURE: PORTABLE CHEST 1V PORTABLE CHEST 1V Clinical Indication: ALTERED MENTAL STATUS Comparison: AP chest February 24, 2017. Findings: Atherosclerotic aortic arch. Cardiac size upper limits of normal. Lungs are clear. There is no pneumothorax. No pleural effusion is appreciated. No acute bone abnormality. IMPRESSION: No acute cardiopulmonary process. Electronically signed by: Robb Laboy MD (03/10/2018 8:28 AM) [id number] DICTATED AND SIGNED BY: ROBB LABOY MD DATE: 03/10/18819 CC: KARLI RUTHERFORD DO; ILENE RIVERA MD ~ [place] [address] IMAGING REPORT Signed PATIENT: FAIZAN ROJAS ACCOUNT: [id number] : 1950 LOCATION: ER AGE: 67 SEX: F EXAM STATUS: REG ER ORD. PHYSICIAN: ILENE RIVERA MD REASON: ALOC PROCEDURE: CT HEAD WO CONTRAST CT HEAD WO CONTRAST Indication: ALTERED MENTAL STATUS Exposure: One or more of the following individualized dose reduction techniques were utilized for this examination: 1. Automated exposure control 2. Adjustment of the mA and/or kV according to patient size 3. Use of iterative reconstruction technique. Comparison: February 24, 2017 images available but not the report Contrast: None FINDINGS: Posterior fossa is unremarkable. No evidence of acute intracranial hemorrhage or abnormal extra-axial fluid collection. No evidence of mass effect or midline shift. Small low-density within the right sara is unchanged. Low-density lesion within the right right basal ganglia appears unchanged. Low-density within the bilateral white matter, nonspecific but likely due to chronic small vessel ischemic disease. Mild prominence of ventricles and sulci compatible with atrophy. Visualized orbits are unremarkable. Visualized paranasal sinuses and mastoids are clear. No acute calvarial abnormality. Impression: 1. Areas of low-density in the sara and right basal ganglia are redemonstrated, would most commonly be due to chronic small vessel ischemic disease. 2. No acute intracranial hemorrhage or mass effect. 3. No significant change since prior study. Electronically signed by: Nilesh Back MD (03/10/2018 8:32 AM) [id number] DICTATED AND SIGNED BY: NILESH BACK MD DATE: 03/10/18 0818 CC: KARLI RUTHERFORD DO; ILENE RIVERA MD ~ Course & Med Decision Making Course & Med Decision Making Pertinent Labs and Imaging studies reviewed. (See chart for details) Evaluation of patient in ER showed 67-year-old female patient with history of hemodialysis brought in by EMS because of altered level of consciousness since last night. Patient was oriented 1 and agitated. She had blood pressure of 230 over 130s at arrival to ER treated with hydralazine IV 10 mg 2 with improvement of blood pressure. Patient has hydrocodone at her home and had Narcan 0.4 mg 2 with mild improvement of her condition. Patient's daughter requesting [facility] for transferring the patient. transfer team was informed at [address] Merritt accepted transfer at 0 [phone] but they stated there is no available. Patient was in emergency room for about 2.5 hours after accepting by [facility] with improvement of her condition and able to answer the question partially. Dragon Disclaimer Dragon Disclaimer This electronic medical record was generated, in whole or in part, using a voice recognition dictation system. Departure Departure: Impression: Primary Impression: Hypertensive encephalopathy Additional Impressions: Chronic kidney insufficiency Altered level of consciousness Disposition: 05 XFER OTHER ([facility] at 0857) Condition: GUARDED Referrals: KARLI RUTHERFORD DO (PCP) Critical Care Time Critical care time was [110] minutes exclusive of procedures. Problem Qualifiers ILENE RIVERA MD Mar 10, 2018 07:52
--- NOTE | 2018-03-10 08:07 | EKG ---
[address] [address] Test Date: 2018-03-10 Test Time: 07:42:21 Pat Name: FAIZAN ROJAS Department: Room: Gender: F [employer] Manager: : 1950 Requested By: ILENE RIVERA Order Number: [id number] Reading MD: Tej Suarez MD Measurements Intervals [place] Rate: 71 P: 49 ME: 138 QRS: -49 QRSD: 90 T: 35 QT: 444 QTc: 483 Interpretive Statements SINUS RHYTHM Electronically Signed On 03-13-2018 10:35:51 CDT by Tej Suarez MD
[2018-03-10 08:09] LABS: BGAS PH 7.46 (7.35-7.45)
[2018-03-10 08:14] LABS: HEMOGLOBIN ISTAT 12.2 gm/dL; POTASSIUM ISTAT 4.3 mmol/L (3.5-5.0)
[2018-03-10] MEDS: hydrALAZINE 20 MG/ML VIAL. IV ONE ×2 (08:20→08:49)
[2018-03-10 08:21] LABS: BASO # 0.1 x10^3/uL (0.0-0.2); BASO % 1 % (0-3); EOS # 0.1 x10^3/uL (0.0-0.7); EOS % 1 % (0-3); HEMATOCRIT 37.4 % (36.0-47.0); HEMOGLOBIN 12.3 g/dL (12.0-15.5); LYMPH # 3.1 x10^3/uL (1.0-4.8); LYMPH % 31 % (24-48); MEAN CORPUSCULAR HEMOGLOBIN 29 pg (25-35); MEAN CORPUSCULAR HGB CONC 33 g/dL (31-37); MEAN CORPUSCULAR VOLUME 88 fL (79-100); MONO % 10 % (0-9); NEUT # 5.8 x10^3uL (1.8-7.7); NEUT % 58 % (31-73); PLATELET COUNT 303 x10^3/uL (140-400); RED BLOOD COUNT 4.23 x10^6/uL (3.50-5.40); RED CELL DISTRIBUTION WIDTH 14.8 % (11.5-14.5); WHITE BLOOD COUNT 10.1 x10^3/uL (4.0-11.0)
[2018-03-10] MEDS: NALOXONE 0.4 MG/ML VIAL. IV ONE ×2 (08:23→08:26)
--- NOTE | 2018-03-10 08:32 | RAD ---
PORTABLE CHEST 1V Clinical Indication: ALTERED MENTAL STATUS Comparison: AP chest February 24, 2017. Findings: Atherosclerotic aortic arch. Cardiac size upper limits of normal. Lungs are clear. There is no pneumothorax. No pleural effusion is appreciated. No acute bone abnormality. IMPRESSION: No acute cardiopulmonary process. Electronically signed by: Robb Laboy MD (03/10/2018 8:28 AM) [id number]
--- NOTE | 2018-03-10 08:36 | RAD ---
CT HEAD WO CONTRAST Indication: ALTERED MENTAL STATUS Exposure: One or more of the following individualized dose reduction techniques were utilized for this examination: 1. Automated exposure control 2. Adjustment of the mA and/or kV according to patient size 3. Use of iterative reconstruction technique. Comparison: February 24, 2017 images available but not the report Contrast: None FINDINGS: Posterior fossa is unremarkable. No evidence of acute intracranial hemorrhage or abnormal extra-axial fluid collection. No evidence of mass effect or midline shift. Small low-density within the right sara is unchanged. Low-density lesion within the right right basal ganglia appears unchanged. Low-density within the bilateral white matter, nonspecific but likely due to chronic small vessel ischemic disease. Mild prominence of ventricles and sulci compatible with atrophy. Visualized orbits are unremarkable. Visualized paranasal sinuses and mastoids are clear. No acute calvarial abnormality. Impression: 1. Areas of low-density in the sara and right basal ganglia are redemonstrated, would most commonly be due to chronic small vessel ischemic disease. 2. No acute intracranial hemorrhage or mass effect. 3. No significant change since prior study. Electronically signed by: Nilesh Back MD (03/10/2018 8:32 AM) [id number]
[2018-03-10 08:40] LABS: ALBUMIN 3.4 g/dL (3.4-5.0); MAGNESIUM 2.6 mg/dL (1.8-2.4); TOTAL BILIRUBIN 0.3 mg/dL (0.2-1.0); TOTAL PROTEIN 7.9 g/dL (6.4-8.2)
[2018-03-10 08:50] LABS: DIRECT BILIRUBIN 0.1 mg/dL (0.0-0.2)
[2018-03-10] MEDS: ONDANSETRON PF 4 MG/2 ML VIAL. IV ONE (09:12)
[2018-03-10 09:25] LABS: BARBITURATES NEG (NEG); BENZODIAZEPINES NEG (NEG); CANNABINOIDS NEG (NEG); COCAINE NEG (NEG); METHADONE NEG (NEG); OPIATES NEG (NEG); PHENCYCLIDINE NEG (NEG)
[2018-03-10 09:26] LABS: AMPHETAMINE/METHAMPHETAMINE NEG (NEG)
[2018-03-10 09:44] LABS: BACTERIA,URINE 0 /HPF (0-FEW); BILIRUBIN,URINE NEG (NEG); CLARITY,URINE HAZY; COLOR,URINE YELLOW; GLUCOSE,URINE 100 mg/dL (NEG); NITRITE,URINE NEG (NEG); SQUAMOUS EPITHELIAL CELL,UR OCC /LPF; UROBILINOGEN,URINE 0.2 mg/dL (0.2 mg/dL); WBC,URINE 0 /HPF (0-4)
[2018-03-10] MEDS: METOCLOPRAMIDE HCL 10 MG/2 ML VIAL. IV ONE (11:00)
[2018-03-10 11:51] VITALS: BP 155/90
== END 2018-03-10 12:00 | disposition short-term general hospital (02) ==
LOC: ER 07:38
DX: I67.4 Hypertensive encephalopathy (principal); R40.4 Transient alteration of awareness; I13.0 Hypertensive heart and chronic kidney disease with heart failure and stage 1 through stage 4 chronic kidney disease, or unspecified chronic kidney disease; E11.22 Type 2 diabetes mellitus with diabetic chronic kidney disease; N18.9 Chronic kidney disease, unspecified; I50.9 Heart failure, unspecified; F17.210 Nicotine dependence, cigarettes, uncomplicated; Z86.73 Personal history of transient ischemic attack (TIA), and cerebral infarction without residual deficits; Z88.2 Allergy status to sulfonamides; Z88.8 Allergy status to other drugs, medicaments and biological substances; E78.00 Pure hypercholesterolemia, unspecified
CPT/HCPCS: 36415; 51702; 70450; 71045; 80047; 80076; 80307; 81001; 82140; 82553; 82803; 83605; 83690; 83735; 83880; 84484; 85025; 85610; 85730; 87040; 87186; 87205; 93005; 96374; 96375; 99292; J0360; J2310; J2405; J2765; 99291-25; G0479

== ENCOUNTER 2018-05-10 17:43 | Emergency (ER) | payer MEDICARE ==
[~2018-05-10] VITALS: Ht 157.5 cm; Wt 54.6 kg
--- NOTE | 2018-05-10 18:33 | PHYS DOC ---
Past History Past Medical History: Bronchitis, Cancer, CHF, CVA, Diabetes, High Cholesterol , Hypertension, Renal Disease, Renal Failure Past Surgical History: Hysterectomy, Other Smoking: Cigarettes Alcohol Use: None Drug Use: None Adult General Chief Complaint Chief Complaint: LOWER EXT PAIN HPI HPI 67 showed female presents with right knee pain. The patient is on dialysis and she had dialysis this morning. When she was beginning to walk stairs at home she tripped and hit her right knee into the front edge of the step. She is continued to have pain in that knee since then. She normally walks with a cane. Patient also states that if she bends her knee all the way up she gets pain that radiates up into the right hip on the lateral side. She denies hitting her head or losing consciousness. She has no other injuries. She denies fever or chills. Review of Systems Review of Systems Constitutional: Denies fever or chills [] Eyes: Denies change in visual acuity, redness, or eye pain [] HENT: Denies nasal congestion or sore throat [] Respiratory: Denies cough or shortness of breath [] Cardiovascular: No additional information not addressed in HPI [] GI: Denies abdominal pain, nausea, vomiting, bloody stools or diarrhea [] : Denies dysuria or hematuria [] Musculoskeletal: Right knee and right hip pain[] Integument: Denies rash or skin lesions [] Neurologic: Denies headache, focal weakness or sensory changes [] Endocrine: Denies polyuria or polydipsia [] All other systems were reviewed and found to be within normal limits, except as documented in this note. Allergies Allergies Allergies Coded Allergies Type Severity Reaction Last Updated Verified DAISHA Inhibitors Allergy Intermediate 07/23/14 Yes Sulfa (Sulfonamide Antibiotics) Allergy Intermediate Rash 07/23/14 Yes atorvastatin Allergy Intermediate 07/23/14 Yes Physical Exam Physical Exam Constitutional: Well developed, well nourished, no acute distress, non-toxic appearance. [] HENT: Normocephalic, atraumatic, bilateral external ears normal, oropharynx moist, no oral exudates, nose normal. [] Eyes: PERRLA, EOMI, conjunctiva normal, no discharge. [] Neck: Normal range of motion, no tenderness, supple, no stridor. [] Cardiovascular:Heart rate regular rhythm, no murmur [] Lungs & Thorax: Bilateral breath sounds clear to auscultation [] Abdomen: Bowel sounds normal, soft, no tenderness, no masses, no pulsatile masses. [] Skin: Warm, dry, no erythema, no rash. [] Back: No tenderness, no CVA tenderness. [] Extremities: Medial joint line tenderness of the right knee. Ligaments intact with solid end feel. Able to fully flex the knee, but with some pain. Minimal swelling. No ecchymosis.[] Neurologic: Alert and oriented X 3, normal motor function, normal sensory function, no focal deficits noted. [] Psychologic: Affect normal, judgement normal, mood normal. [] Current Patient Data Vital Signs Vital Signs Date Time Temp Pulse Resp B/P (MAP) Pulse Ox O2 Delivery O2 Flow Rate FiO2 05/10/18 17:59 98.2 72 18 99 Room Air EKG EKG [] Radiology/Procedures Radiology/Procedures [] Impressions: Preliminary interpretation: No acute fracture or dislocation Course & Med Decision Making Course & Med Decision Making Pertinent Labs and Imaging studies reviewed. (See chart for details) The patient does not have a fracture or malalignment of the hip or knee. I believe she just has a contusion and possibly a strained muscle as a result. I will recommend supportive care and rice therapy. She is stable for discharge at this time [] Dragon Disclaimer Dragon Disclaimer This electronic medical record was generated, in whole or in part, using a voice recognition dictation system. Departure Departure: Referrals: KARLI RUTHERFORD DO (PCP) MARY ARMSTRONG DO May 10, 2018 18:33
--- NOTE | 2018-05-10 19:37 | RAD ---
History: Right knee pain. Comparison: None. Findings: AP, lateral, oblique, and merchant views of the right knee. No acute fracture or dislocation is identified. Quadriceps tendon insertional enthesophyte is seen. No convincing joint effusion is appreciated. No significant degeneration is identified. Arterial calcification are present. Impression: No acute osseous abnormality identified. Electronically signed by: Nilesh Robledo MD (05/10/2018 7:33 PM) [facility]
--- NOTE | 2018-05-10 19:38 | RAD ---
History: Right hip pain. Fall. Comparison: None. Findings: AP view of the pelvis. AP and frog-leg views of the right hip. No acute fracture or dislocation is identified. Arterial calcification are present. No significant hip degeneration is seen. Impression: No acute osseous traumatic injury identified. Electronically signed by: Nilesh Robledo MD (05/10/2018 7:35 PM) [facility]
[2018-05-10 19:41] VITALS: BP 150/70
== END 2018-05-10 19:42 | disposition home or self-care (01) ==
LOC: ER 17:43
DX: M25.551 Pain in right hip (principal); M25.561 Pain in right knee; G89.11 Acute pain due to trauma; I11.0 Hypertensive heart disease with heart failure; I50.9 Heart failure, unspecified; E11.9 Type 2 diabetes mellitus without complications; E78.00 Pure hypercholesterolemia, unspecified; F17.210 Nicotine dependence, cigarettes, uncomplicated; Z86.73 Personal history of transient ischemic attack (TIA), and cerebral infarction without residual deficits; Z88.2 Allergy status to sulfonamides; Z88.8 Allergy status to other drugs, medicaments and biological substances; W18.40XA Slipping, tripping and stumbling without falling, unspecified, initial encounter; Y93.01 Activity, walking, marching and hiking; Y92.098 Other place in other non-institutional residence as the place of occurrence of the external cause; Y99.8 Other external cause status
CPT/HCPCS: 73502; 73564; 99284

== ENCOUNTER 2018-10-01 12:20 | Emergency (ER) | payer MEDICARE ==
[~2018-10-01] VITALS: Ht 157.5 cm; Wt 62.2 kg
[~2018-10-01 12:20] MED LIST changes: -AMLO10TA6 PO; +AMLO10TA8 PO; +HYDR-2155 PO; -HYDR-2758 PO; -LOSA50TA7 PO; +LOSA50TA86 PO
--- NOTE | 2018-10-01 12:29 | PHYS DOC ---
Past History Past Medical History: Bronchitis, Cancer, CHF, CVA, Diabetes, High Cholesterol , Hypertension, Renal Disease, Renal Failure Past Surgical History: Hysterectomy, Other Smoking: Cigarettes Alcohol Use: None Drug Use: None Adult General Chief Complaint Chief Complaint: CHEST PAIN HPI HPI Patient is a 67 year old female who brought in by EMS because of chest pain. Patient had history of chronic renal failure on dialysis and he states she has had productive cough and dizziness sputum with shortness of breath and subjective fever. Patient states she had substernal chest pain today that resolved after 324 mg of aspirin given by EMS. Patient states her GERD and found that his sleeping at the same. With her had diagnosis of flu few days ago. Patient had denies fevers 2 days ago and plans to have dialysis tomorrow. She is a smoker. Review of Systems Review of Systems Constitutional: Denies fever or chills [] Eyes: Denies change in visual acuity, redness, or eye pain [] HENT: Denies nasal congestion or sore throat [] Respiratory: Reports cough and shortness of breath Cardiovascular: No additional information not addressed in HPI [] GI: Denies abdominal pain, nausea, vomiting, bloody stools or diarrhea [] : Denies dysuria or hematuria [] Musculoskeletal: Denies back pain or joint pain [] Integument: Denies rash or skin lesions [] Neurologic: Denies headache, focal weakness or sensory changes [] Endocrine: Denies polyuria or polydipsia [] All other systems were reviewed and found to be within normal limits, except as documented in this note. Allergies Allergies Allergies Coded Allergies Type Severity Reaction Last Updated Verified DAISHA Inhibitors Allergy Intermediate 07/23/14 Yes Sulfa (Sulfonamide Antibiotics) Allergy Intermediate Rash 07/23/14 Yes atorvastatin Allergy Intermediate 07/23/14 Yes Physical Exam Physical Exam Constitutional: Well developed, well nourished, mild distress, non-toxic appearance, fever of 101. [] HENT: Normocephalic, atraumatic, bilateral external ears normal, oropharynx moist, no oral exudates, nose normal. [] Eyes: PERRLA, EOMI, conjunctiva normal, no discharge. [] Neck: Normal range of motion, no tenderness, supple, no stridor. [] Cardiovascular:Heart rate regular rhythm, no murmur [] Lungs & Thorax: Bilateral breath sounds clear to auscultation [] Abdomen: Bowel sounds normal, soft, no tenderness, no masses, no pulsatile masses. [] Skin: Warm, dry, no erythema, no rash. [] Back: No tenderness, no CVA tenderness. [] Extremities: No tenderness, no cyanosis, no clubbing, ROM intact, no edema. [] Neurologic: Alert and oriented X 3, normal motor function, normal sensory function, no focal deficits noted. [] Psychologic: Affect normal, judgement normal, mood normal. [] EKG EKG EKG at 1229 showed sinus rhythm at rate of 60, PACs, left axis deviation, left anterior fascicular block, T-wave abnormalities anterolateral leads, no acute ST and T-wave abnormalities. Radiology/Procedures Radiology/Procedures [][place] [address] IMAGING REPORT Signed PATIENT: FAIZAN ROJAS ACCOUNT: [id number] : 1950 LOCATION: ER AGE: 67 SEX: F EXAM STATUS: PRE ER ORD. PHYSICIAN: ILENE RIVERA MD REASON: chest pain and fever PROCEDURE: PORTABLE CHEST 1V AP chest. HISTORY: Chest pain with fever AP view was taken of the chest. Patient's taken a poor inspiration. Heart is normal in size. There is no pleural effusion. There are no acute infiltrates. IMPRESSION: 1. Poor inspiration. 2. No acute infiltrates. Electronically signed by: Bishnu Saldana MD (10/01/2018 12:58 PM) [facility] DICTATED AND SIGNED BY: BISHNU SALDANA MD DATE: 10/01/18 1258 CC: KARLI RUTHERFORD DO; ILENE RIVERA MD ~ Course & Med Decision Making Course & Med Decision Making Pertinent Labs and Imaging studies reviewed. (See chart for details) Evaluation of patient in ER showed 67-year-old female patient brought in by EMS because of chest pain and shortness of breath. Patient had temperature of 101 at arrival to ER and treated with Tylenol with improvement of fever. Patient did not have IV fluid because of renal failure and dialyzes. Chest x-ray and labs was was unremarkable except for elevation of potassium and BUN/creatinine and BNP. Patient treated with albuterol for elevation of potassium. Flu test was negative. Because of fever and history of chronic renal failure plan to admit patient to [facility]. Patient had history of COPD according to EMR. Patient's daughter later on called and stated she did not have history of COPD and only had bronchitis. Dr Keenan accepted transfer to [facility]. Dragon Disclaimer Dragon Disclaimer This electronic medical record was generated, in whole or in part, using a voice recognition dictation system. Departure Departure: Impression: Primary Impression: COPD exacerbation Additional Impressions: SIRS (systemic inflammatory response syndrome) Hyperkalemia Acute on chronic renal failure Tobacco abuse Tobacco abuse counseling Atypical chest pain CHF (congestive heart failure) Admitting Physician: Holly Keenna (accepted transfer to [facility] at 1424) Referrals: KARLI RUTHERFORD DO (PCP) Problem Qualifiers ILENE RIVERA MD Oct 01, 2018 12:29
[2018-10-01] MEDS ORDERED: ACETAMINOPHEN 325 MG TABLET PO ONE (12:30)
[2018-10-01] MEDS ORDERED: ACETAMINOPHEN 500 MG TABLET PO ONE ×2 (12:49→13:00)
--- NOTE | 2018-10-01 13:01 | RAD ---
AP chest. HISTORY: Chest pain with fever AP view was taken of the chest. Patient's taken a poor inspiration. Heart is normal in size. There is no pleural effusion. There are no acute infiltrates. IMPRESSION: 1. Poor inspiration. 2. No acute infiltrates. Electronically signed by: Bishnu Saldana MD (10/01/2018 12:58 PM) [facility]
[2018-10-01 13:07] LABS: BASO # 0.1 x10^3/uL (0.0-0.2); BASO % 1 % (0-3); EOS % 1 % (0-3); HEMATOCRIT 38.4 % (36.0-47.0); HEMOGLOBIN 12.8 g/dL (12.0-15.5); LYMPH # 1.2 x10^3/uL (1.0-4.8); LYMPH % 14 % (24-48); MEAN CORPUSCULAR HEMOGLOBIN 29 pg (25-35); MEAN CORPUSCULAR HGB CONC 33 g/dL (31-37); MEAN CORPUSCULAR VOLUME 89 fL (79-100); MONO # 1.2 x10^3/uL (0.0-1.1); MONO % 15 % (0-9); NEUT # 5.7 x10^3uL (1.8-7.7); NEUT % 70 % (31-73); PLATELET COUNT 195 x10^3/uL (140-400); RED BLOOD COUNT 4.34 x10^6/uL (3.50-5.40); RED CELL DISTRIBUTION WIDTH 13.2 % (11.5-14.5); WHITE BLOOD COUNT 8.2 x10^3/uL (4.0-11.0)
[2018-10-01 13:27] LABS: INFLUENZA A PATIENT NEGATIVE (NEGATIVE); INFLUENZA B PATIENT NEGATIVE (NEGATIVE)
[2018-10-01 14:01] LABS: ALBUMIN/GLOBULIN RATIO 0.6 (1.0-1.7); CALCIUM 9.5 mg/dL (8.5-10.1); CREATININE 10.4 mg/dL (0.6-1.0); GFR 4.5; MAGNESIUM 2.2 mg/dL (1.8-2.4); POTASSIUM 5.6 mmol/L (3.5-5.1); TOTAL BILIRUBIN 0.4 mg/dL (0.2-1.0); TOTAL PROTEIN 7.9 g/dL (6.4-8.2)
[2018-10-01] MEDS ORDERED: ALBUTEROL SULFATE 2.5 MG/3 ML NEBU. CONT NEB ONE (14:15)
[2018-10-01 15:56] VITALS: BP 140/45
--- NOTE | 2018-10-01 21:29 | EKG ---
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
== END 2018-10-01 16:30 | disposition home or self-care (01) ==
LOC: ER 12:20
DX: J44.1 Chronic obstructive pulmonary disease with (acute) exacerbation (principal); R65.10 Systemic inflammatory response syndrome (SIRS) of non-infectious origin without acute organ dysfunction; E87.5 Hyperkalemia; E11.22 Type 2 diabetes mellitus with diabetic chronic kidney disease; I13.0 Hypertensive heart and chronic kidney disease with heart failure and stage 1 through stage 4 chronic kidney disease, or unspecified chronic kidney disease; I50.9 Heart failure, unspecified; N18.9 Chronic kidney disease, unspecified; N17.9 Acute kidney failure, unspecified; Z86.73 Personal history of transient ischemic attack (TIA), and cerebral infarction without residual deficits; E78.00 Pure hypercholesterolemia, unspecified; F17.210 Nicotine dependence, cigarettes, uncomplicated; Z71.6 Tobacco abuse counseling; Z88.2 Allergy status to sulfonamides; Z88.8 Allergy status to other drugs, medicaments and biological substances
CPT/HCPCS: 36415; 71045; 80053; 82550; 83605; 83735; 83880; 84484; 85025; 85610; 87040; 87804; 93005; 94644; 99285; J7613

== ENCOUNTER 2018-11-28 14:33 | Emergency (ER) | payer MEDICARE ==
[~2018-11-28] VITALS: Ht 157.5 cm; Wt 60.4 kg
--- NOTE | 2018-11-28 15:23 | PHYS DOC ---
Past History Past Medical History: Bronchitis, CHF, COPD, CVA, Diabetes, High Cholesterol, Hypertension, Renal Disease, Renal Failure Past Surgical History: Hysterectomy, Oophorectomy, Other Smoking: Cigarettes Alcohol Use: None Additional Alcohol Information: hx of ETOH abuse, 36yrs sobarity Drug Use: None Adult General Chief Complaint Chief Complaint: CONTISPATION HPI HPI 67-year-old female who is on dialysis presents with no bowel movement since Easter which was 16 days ago. She states that she has had some minimal watery brown stool but not a full bowel movement. She does not believe that she is having as much output and she is eating and drinking. The patient is limited in her fluid intake. She has tried MiraLAX at home without effect. She has a feeling of abdominal bloating and fullness. She has been having flatulence. She denies fever or chills. Review of Systems Review of Systems Constitutional: Denies fever or chills [] Eyes: Denies change in visual acuity, redness, or eye pain [] HENT: Denies nasal congestion or sore throat [] Respiratory: Denies cough or shortness of breath [] Cardiovascular: No additional information not addressed in HPI [] GI: Abdominal bloating, constipation[] : Denies dysuria or hematuria [] Musculoskeletal: Denies back pain or joint pain [] Integument: Denies rash or skin lesions [] Neurologic: Denies headache, focal weakness or sensory changes [] Endocrine: Denies polyuria or polydipsia [] All other systems were reviewed and found to be within normal limits, except as documented in this note. Current Medications Current Medications Current Medications Medications (Trade) Dose Ordered Sig/Deysi Start Time Stop Time Status Last Admin Dose Admin Sodium Chloride 1,000 ml @ 1,000 mls/hr 1X ONCE 11/28/18 15:15 11/28/18 16:14 Allergies Allergies Allergies Coded Allergies Type Severity Reaction Last Updated Verified DAISHA Inhibitors Allergy Intermediate 07/23/14 Yes Sulfa (Sulfonamide Antibiotics) Allergy Intermediate Rash 07/23/14 Yes atorvastatin Allergy Intermediate 07/23/14 Yes Physical Exam Physical Exam Constitutional: Well developed, well nourished, no acute distress, non-toxic appearance. [] HENT: Normocephalic, atraumatic, bilateral external ears normal, oropharynx moist, no oral exudates, nose normal. [] Eyes: PERRLA, EOMI, conjunctiva normal, no discharge. [] Neck: Normal range of motion, no tenderness, supple, no stridor. [] Cardiovascular:Heart rate regular rhythm, 2/6 systolic ejection murmur [] Lungs & Thorax: Bilateral breath sounds clear to auscultation [] Abdomen: Bowel sounds normal, soft, mild diffuse tenderness, no masses, no pulsatile masses. [] Skin: Warm, dry, no erythema, no rash. [] Back: No tenderness, no CVA tenderness. [] Extremities: Left arm with evidence of dialysis access[] Neurologic: Alert and oriented X 3, normal motor function, normal sensory function, no focal deficits noted. [] Psychologic: Affect normal, judgement normal, mood normal. [] Current Patient Data Vital Signs Vital Signs Date Time Temp Pulse Resp B/P (MAP) Pulse Ox O2 Delivery O2 Flow Rate FiO2 11/28/18 14:35 98.4 65 18 100 Room Air EKG EKG [] Radiology/Procedures Radiology/Procedures [] Impressions: KUB, 11/28/2018: HISTORY: Constipation There is gas and stool scattered throughout the colon in a nonspecific pattern. Scattered arterial vascular calcifications are present. There is no evidence organomegaly. IMPRESSION: No acute abdominal abnormality is detected. Electronically signed by: Fernando Cole MD (11/28/2018 3:41 PM) [facility] DICTATED AND SIGNED BY: FERNANDO COLE MD DATE: 11/28/18 1541 CC: KARLI RUTHERFORD DO; MARY ARMSTRONG DO ~ Course & Med Decision Making Course & Med Decision Making Pertinent Labs and Imaging studies reviewed. (See chart for details) The patient's x-ray show moderate stool retention. We'll perform an enema in the ED. The enema was moderately successful. There were stools. I will advise the patient to the back on her daily MiraLAX that she has not been taking. She will follow up with her PCP if further management is required. She is stable for discharge at this time. [] Dragon Disclaimer Dragon Disclaimer This electronic medical record was generated, in whole or in part, using a voice recognition dictation system. Departure Departure: Impression: Primary Impression: Constipation Disposition: 01 HOME, SELF-CARE Condition: STABLE Referrals: KARLI RUTHERFORD DO (PCP) Patient Instructions: Constipation, Adult, [id number] Problem Qualifiers Primary Impression: Constipation Constipation type: slow transit constipation Qualified Codes: K59.01 - Slow transit constipation MARY ARMSTRONG DO November 28, 2018 15:23
[2018-11-28] MEDS: IV NORMAL SALINE 1,000ML 1,000 ML IV ONE (15:26)
--- NOTE | 2018-11-28 15:44 | RAD ---
RENEE, 11/28/2018: HISTORY: Constipation There is gas and stool scattered throughout the colon in a nonspecific pattern. Scattered arterial vascular calcifications are present. There is no evidence organomegaly. IMPRESSION: No acute abdominal abnormality is detected. Electronically signed by: Fernando Cole MD (11/28/2018 3:41 PM) [facility]
[2018-11-28 15:48] LABS: BASO # 0.1 x10^3/uL (0.0-0.2); BASO % 1 % (0-3); EOS # 0.1 x10^3/uL (0.0-0.7); EOS % 2 % (0-3); HEMATOCRIT 32.8 % (36.0-47.0); HEMOGLOBIN 10.8 g/dL (12.0-15.5); LYMPH % 30 % (24-48); MEAN CORPUSCULAR HEMOGLOBIN 29 pg (25-35); MEAN CORPUSCULAR HGB CONC 33 g/dL (31-37); MEAN CORPUSCULAR VOLUME 88 fL (79-100); MONO # 0.8 x10^3/uL (0.0-1.1); MONO % 13 % (0-9); NEUT # 3.6 x10^3uL (1.8-7.7); NEUT % 55 % (31-73); PLATELET COUNT 280 x10^3/uL (140-400); RED BLOOD COUNT 3.71 x10^6/uL (3.50-5.40); RED CELL DISTRIBUTION WIDTH 15.6 % (11.5-14.5); WHITE BLOOD COUNT 6.5 x10^3/uL (4.0-11.0)
[2018-11-28 16:02] LABS: ALBUMIN 3.1 g/dL (3.4-5.0); ALBUMIN/GLOBULIN RATIO 0.6 (1.0-1.7); CREATININE 8.1 mg/dL (0.6-1.0); POTASSIUM 4.5 mmol/L (3.5-5.1); TOTAL BILIRUBIN 0.3 mg/dL (0.2-1.0); TOTAL PROTEIN 7.9 g/dL (6.4-8.2)
[2018-11-28] MEDS: SODIUM PHOSPHATES 19/7GM 133 ML ENEMA. PR ONE (16:20)
[2018-11-28 17:50] VITALS: BP 190/76
== END 2018-11-28 17:50 | disposition home or self-care (01) ==
LOC: ER 14:33
DX: K59.00 Constipation, unspecified (principal); J44.9 Chronic obstructive pulmonary disease, unspecified; E78.00 Pure hypercholesterolemia, unspecified; I13.0 Hypertensive heart and chronic kidney disease with heart failure and stage 1 through stage 4 chronic kidney disease, or unspecified chronic kidney disease; E11.22 Type 2 diabetes mellitus with diabetic chronic kidney disease; N18.9 Chronic kidney disease, unspecified; I50.9 Heart failure, unspecified; F17.210 Nicotine dependence, cigarettes, uncomplicated; Z86.73 Personal history of transient ischemic attack (TIA), and cerebral infarction without residual deficits; Z99.2 Dependence on renal dialysis; Z88.2 Allergy status to sulfonamides; Z88.8 Allergy status to other drugs, medicaments and biological substances
CPT/HCPCS: 36415; 74018; 80053; 85025; 96360; 99285-25; J7030

== ENCOUNTER 2019-04-06 21:41 | Emergency (ER) | payer MEDICARE ==
[~2019-04-06] VITALS: Ht 157.5 cm; Wt 64.0 kg
--- NOTE | 2019-04-06 21:47 | ED.ADGEN ---
Past History Past Medical History: Anxiety, Arthritis, Bronchitis, CAD, CHF, COPD, CVA, Depression, Diabetes, High Cholesterol, Heart Disease, Hypertension, Renal Disease, Renal Failure, Other Past Surgical History: Hysterectomy, Oophorectomy, Other Past Surgical History Cardiac Stent 2009 Smoking: Cigarettes Alcohol Use: None Drug Use: None Adult General Chief Complaint Chief Complaint ".. I short ,, of air.. can't seem.... to get.... my breath... and my chest... is heavy.. here... in the center...".. " I got my dialysis today...." HPI HPI Patient is a 68 year old female who presents with above hx and complaints chest discomfort and increase dyspnea. Patient did have dialysis today and took off the normal amount of fluid for her- 2 kg. Patient denies any changes in meds or specific ill contacts or travel. Patient has significant medical history with coronary artery disease with cardiac stents. Reportedly a UT in 2009. Patient has a history of CVA in 2009. Patient has history of diabetes, hypertension, COPD, CHF and pulmonary edema episodes. Patient normally follows with Dr. Cherelle hankins and Dr. Monson for hemodialysis. Review of Systems Review of Systems Constitutional: Denies fever or chills [] Eyes: Denies change in visual acuity, redness, or eye pain [] HENT: Denies nasal congestion or sore throat [] Respiratory: Complaints of shortness of breath [] Cardiovascular: No additional information not addressed in HPI [] GI: Denies abdominal pain, nausea, vomiting, bloody stools or diarrhea [] : Denies dysuria or hematuria [] Musculoskeletal: Denies back pain or joint pain [] Integument: Denies rash or skin lesions [] Neurologic: Denies headache, focal weakness or sensory changes [] Endocrine: Denies polyuria or polydipsia [] All other systems were reviewed and found to be within normal limits, except as documented in this note. Family History Family History Hypertension, diabetes Current Medications Current Medications Current Medications Medications (Trade) Dose Ordered Sig/Deysi Start Time Stop Time Status Last Admin Dose Admin Aspirin (Children'S Aspirin) 324 mg 1X ONCE 04/06/19 22:15 04/06/19 22:16 DC 04/06/19 22:41 324 MG See nursing for home meds Allergies Allergies Allergies Coded Allergies Type Severity Reaction Last Updated Verified DAISHA Inhibitors Allergy Intermediate 07/23/14 Yes Sulfa (Sulfonamide Antibiotics) Allergy Intermediate Rash 07/23/14 Yes atorvastatin Allergy Intermediate 07/23/14 Yes Physical Exam Physical Exam Constitutional: Moderate acute distress, non-toxic appearance. [] HENT: Normocephalic, atraumatic, bilateral external ears normal, oropharynx moist, no oral exudates, nose normal. Poor dentition Eyes: PERRLA, EOMI, conjunctiva normal, no discharge. [] Neck: Normal range of motion, no tenderness, supple, no stridor. [] Cardiovascular: Bradycardia Heart rate regular rhythm, no murmur []PMI to the left Lungs & Thorax: Bilateral breath sounds equal apex with scattered wheezes and basilar crackles bilaterally on auscultation [] Abdomen: Bowel sounds normal, soft, no tenderness, no masses, no pulsatile masses. [Old surgery scars Skin: Warm, dry, no erythema, no rash. Poor turgor Back: No tenderness, no CVA tenderness. [] Extremities: No tenderness, no cyanosis, no clubbing, ROM intact, ankle edema. [] Through the changes Neurologic: Alert and oriented X 3, moves extremities on request. Good thrill in left arm AV graft, no focal deficits noted. [] Psychologic: Affect anxious, judgement normal, mood depressed[] Current Patient Data Vital Signs Vital Signs Date Time Temp Pulse Resp B/P (MAP) Pulse Ox O2 Delivery O2 Flow Rate FiO2 04/07/19 02:40 60 18 115/66 (82) 97 Room Air 04/07/19 02:10 97.6 Lab Results Laboratory Tests Test 04/06/19 22:10 04/06/19 23:27 04/06/19 23:35 Group A Streptococcus Rapid Negative (NEGATIVE) White Blood Count 7.4 x10^3/uL (4.0-11.0) Red Blood Count 4.67 x10^6/uL (3.50-5.40) Hemoglobin 13.6 g/dL (12.0-15.5) Hematocrit 42.6 % (36.0-47.0) Mean Corpuscular Volume 91 fL (79-100) Mean Corpuscular Hemoglobin 29 pg (25-35) Mean Corpuscular Hemoglobin Concent 32 g/dL (31-37) Red Cell Distribution Width 15.1 % (11.5-14.5) H Platelet Count 216 x10^3/uL (140-400) Neutrophils (%) (Auto) 65 % (31-73) Lymphocytes (%) (Auto) 23 % (24-48) L Monocytes (%) (Auto) 10 % (0-9) H Eosinophils (%) (Auto) 1 % (0-3) Basophils (%) (Auto) 1 % (0-3) Neutrophils # (Auto) 4.8 x10^3uL (1.8-7.7) Lymphocytes # (Auto) 1.7 x10^3/uL (1.0-4.8) Monocytes # (Auto) 0.7 x10^3/uL (0.0-1.1) Eosinophils # (Auto) 0.1 x10^3/uL (0.0-0.7) Basophils # (Auto) 0.1 x10^3/uL (0.0-0.2) Prothrombin Time 10.2 SEC (9.4-11.4) Prothrombin Time INR 1.0 (0.9-1.1) Activated Partial Thromboplast Time 28 SEC (23-33) D-Dimer ([place]) 0.72 mg/L (0.00-0.50) H Sodium Level 137 mmol/L (136-145) Potassium Level 4.4 mmol/L (3.5-5.1) Chloride Level 95 mmol/L (98-107) L Carbon Dioxide Level 31 mmol/L (21-32) Anion Gap 11 (6-14) Blood Urea Nitrogen 33 mg/dL (7-20) H Creatinine 7.0 mg/dL (0.6-1.0) H Estimated GFR (Cockcroft-Gault) 7.1 Glucose Level 155 mg/dL (70-99) H Calcium Level 7.8 mg/dL (8.5-10.1) L Magnesium Level 2.2 mg/dL (1.8-2.4) Total Bilirubin 0.3 mg/dL (0.2-1.0) Direct Bilirubin 0.1 mg/dL (0.0-0.2) Aspartate Amino Transferase (AST) 17 U/L (15-37) Alanine Aminotransferase (ALT) 18 U/L (14-59) Alkaline Phosphatase 122 U/L (46-116) H Creatine Kinase 67 U/L (26-192) Troponin I Quantitative 0.022 ng/mL (0-0.055) ML-Bph-V-Type Natriuretic Peptide 4475 pg/mL (0-124) H Total Protein 8.4 g/dL (6.4-8.2) H Albumin 3.3 g/dL (3.4-5.0) L Lipase 176 U/L (73-393) Urine Collection Type U cath Urine Color Yellow Urine Clarity Clear Urine pH 8.5 Urine Specific [place] 1.015 Urine Protein >100 mg/dl (NEG-TRACE) Urine Glucose (UA) 250 mg/dL (NEG) Urine Ketones (Stick) Neg mg/dL (NEG) Urine Blood Mod (NEG) Urine Nitrite Neg (NEG) Urine Bilirubin Neg (NEG) Urine Urobilinogen Dipstick 0.2 mg/dL (0.2 mg/dL) Urine Leukocyte Esterase Neg (NEG) Urine RBC 11-20 /HPF (0-2) Urine WBC 1-4 /HPF (0-4) Urine Squamous Epithelial Cells Few /LPF Urine Bacteria Few /HPF (0-FEW) Urine Mucus Slight /LPF Urine Opiates Screen Neg (NEG) Urine Methadone Screen Neg (NEG) Urine Barbiturates Neg (NEG) Urine Phencyclidine Screen Neg (NEG) Urine Amphetamine/Methamphetamine Neg (NEG) Urine Benzodiazepines Screen Neg (NEG) Urine Cocaine Screen Neg (NEG) Urine Cannabinoids Screen Neg (NEG) Urine Ethyl Alcohol Neg (NEG) EKG EKG My interpretation EKG shows a sinus rhythm at 64 bpm bimodal P-wave's, and normal morphology inferior leads. No findings acute STEMI of contralateral changes[] Radiology/Procedures Radiology/Procedures [][address] [address] IMAGING REPORT Signed PATIENT: KAYLYNN ROJAS: [id number] : 1950 LOCATION: ER AGE: 68 SEX: F EXAM STATUS: REG ER ORD. PHYSICIAN: LY JASMINE MD REASON: Dyspnea, sore throat, chest tightness. Hx pneumonia PROCEDURE: CHEST PA & LATERAL CHEST PA LATERAL INDICATION: Dyspnea, sore throat, chest tightness. COMPARISON STUDY: 10/01/2018. FINDINGS: Lungs: Normal lung volume. No pulmonary mass or consolidation. The tracheobronchial tree and hilar structures are normal. Pleura: No pleural effusion or pneumothorax. Heart and Mediastinum: The cardiomediastinal silhouette is normal. Tortuous atherosclerotic aorta. Bones and Soft Tissues: Degenerative changes of the spine. IMPRESSION: No acute cardiopulmonary process. Electronically signed by: Belkis Hanson MD (04/06/2019 11:14 PM) [facility] DICTATED AND SIGNED BY: BELKIS HANSON MD DATE: 04/06/19 3067 CC: LY JASMINE MD; JOSSELIN HOANG ~ Course & Med Decision Making Course & Med Decision Making Pertinent Labs and Imaging studies reviewed. (See chart for details) Discussed presentation testing and treatment plan with Transfer team at . Apparently patient cannot be admitted at [place] or [place] because of insurance status must go to . Awaiting call bact [phone] hrs. [] Final Impression Final Impression 1. Dyspnea 2. End-stage renal disease on hemodialysis Wednesdays and Tuesday 3.[Chest Pain - atypical 4. Diabetes glucose 155 5. Elevated d-dimer 0.72 6. CHF/pulmonary edema BNP 4,475 Dragon Disclaimer Dragon Disclaimer This electronic medical record was generated, in whole or in part, using a voice recognition dictation system. Dragon Disclaimer This chart was dictated in whole or in part using Voice Recognition software in a busy, high-work load, and often noisy Emergency Department environment. It may contain unintended and wholly unrecognized errors or omissions. LY JASMINE MD Apr 06, 2019 21:47
[2019-04-06] MEDS ORDERED: ASPIRIN 81 MG TAB.CHEW PO ONE (22:15)
--- NOTE | 2019-04-06 23:17 | RAD ---
CHEST PA LATERAL INDICATION: Dyspnea, sore throat, chest tightness. COMPARISON STUDY: 10/01/2018. FINDINGS: Lungs: Normal lung volume. No pulmonary mass or consolidation. The tracheobronchial tree and hilar structures are normal. Pleura: No pleural effusion or pneumothorax. Heart and Mediastinum: The cardiomediastinal silhouette is normal. Tortuous atherosclerotic aorta. Bones and Soft Tissues: Degenerative changes of the spine. IMPRESSION: No acute cardiopulmonary process. Electronically signed by: Edin Hanson MD (04/06/2019 11:14 PM) [facility]
[2019-04-07 00:05] LABS: BASO # 0.1 x10^3/uL (0.0-0.2); BASO % 1 % (0-3); EOS # 0.1 x10^3/uL (0.0-0.7); EOS % 1 % (0-3); HEMATOCRIT 42.6 % (36.0-47.0); HEMOGLOBIN 13.6 g/dL (12.0-15.5); LYMPH # 1.7 x10^3/uL (1.0-4.8); LYMPH % 23 % (24-48); MEAN CORPUSCULAR HEMOGLOBIN 29 pg (25-35); MEAN CORPUSCULAR HGB CONC 32 g/dL (31-37); MEAN CORPUSCULAR VOLUME 91 fL (79-100); MONO # 0.7 x10^3/uL (0.0-1.1); MONO % 10 % (0-9); NEUT # 4.8 x10^3uL (1.8-7.7); NEUT % 65 % (31-73); PLATELET COUNT 216 x10^3/uL (140-400); RED BLOOD COUNT 4.67 x10^6/uL (3.50-5.40); RED CELL DISTRIBUTION WIDTH 15.1 % (11.5-14.5); WHITE BLOOD COUNT 7.4 x10^3/uL (4.0-11.0)
[2019-04-07 00:09] LABS: AMPHETAMINE/METHAMPHETAMINE NEG (NEG); BARBITURATES NEG (NEG); BENZODIAZEPINES NEG (NEG); CANNABINOIDS NEG (NEG); COCAINE NEG (NEG); METHADONE NEG (NEG); OPIATES NEG (NEG); PHENCYCLIDINE NEG (NEG)
[2019-04-07 00:19] LABS: ALBUMIN 3.3 g/dL (3.4-5.0); CALCIUM 7.8 mg/dL (8.5-10.1); DIRECT BILIRUBIN 0.1 mg/dL (0.0-0.2); GFR 7.1; MAGNESIUM 2.2 mg/dL (1.8-2.4); POTASSIUM 4.4 mmol/L (3.5-5.1); TOTAL BILIRUBIN 0.3 mg/dL (0.2-1.0); TOTAL PROTEIN 8.4 g/dL (6.4-8.2)
[2019-04-07 00:20] LABS: BILIRUBIN,URINE NEG (NEG); CLARITY,URINE CLEAR; COLOR,URINE YELLOW; GLUCOSE,URINE 250 mg/dL (NEG)
[2019-04-07 00:21] LABS: BACTERIA,URINE FEW /HPF (0-FEW); NITRITE,URINE NEG (NEG); SQUAMOUS EPITHELIAL CELL,UR FEW /LPF; UROBILINOGEN,URINE 0.2 mg/dL (0.2 mg/dL)
[2019-04-07 02:40] VITALS: BP 115/66
--- NOTE | 2019-04-07 06:41 | EKG ---
[address] [address] Test Date: 2019-04-06 Test Time: 22:07:21 Pat Name: FAIZAN ROJAS Department: Room: Gender: F Deck Officer: : 1950 Requested By: LY JASMINE Order Number: [id number] Reading MD: Tej Suarez MD Measurements Intervals [place] Rate: 64 P: 40 WY: 138 QRS: 104 QRSD: 84 T: -37 QT: 428 QTc: 446 Interpretive Statements SINUS RHYTHM MILD RIGHT AXIS DEVIATION Electronically Signed On 04-22-2019 21:10:55 CDT by Tej Suarez MD
[2019-04-07 11:33] LABS: THYROID STIM HORMONE (TSH) 1.568 uIU/mL (0.358-3.740)
== END 2019-04-07 02:47 | disposition short-term general hospital (02) ==
LOC: ER 21:41
DX: I13.2 Hypertensive heart and chronic kidney disease with heart failure and with stage 5 chronic kidney disease, or end stage renal disease (principal); E11.22 Type 2 diabetes mellitus with diabetic chronic kidney disease; N18.6 End stage renal disease; I50.9 Heart failure, unspecified; Z99.2 Dependence on renal dialysis; R07.89 Other chest pain; R79.1 Abnormal coagulation profile; F41.9 Anxiety disorder, unspecified; M19.90 Unspecified osteoarthritis, unspecified site; I25.10 Atherosclerotic heart disease of native coronary artery without angina pectoris; J44.9 Chronic obstructive pulmonary disease, unspecified; E78.00 Pure hypercholesterolemia, unspecified; F17.210 Nicotine dependence, cigarettes, uncomplicated; Z86.73 Personal history of transient ischemic attack (TIA), and cerebral infarction without residual deficits; Z88.8 Allergy status to other drugs, medicaments and biological substances; Z88.2 Allergy status to sulfonamides; Z79.82 Long term (current) use of aspirin
CPT/HCPCS: 36415; 71046; 80048; 80061; 80076; 80307; 81001; 82550; 83690; 83735; 83880; 84443; 84484; 85025; 85379; 85610; 85730; 87070; 87880; 93005; 99285

== ENCOUNTER → 2020-06-12 | Outpatient (CLI) | payer MEDICARE ==
[~2020-06-12] MED LIST changes: +AMLO-187 PO; -AMLO10TA8 PO; +IOHEXOL 240 MG/ML 50ML VIAL. ONE; +IOHEXOL 300 MG/ML 75 ML VIAL. IV ONE
--- NOTE | 2020-06-12 15:56 | RAD ---
CT of the abdomen and pelvis with IV contrast for left lower quadrant pain radiating to the left flank, end-stage renal disease. TECHNIQUE: Contiguous helical axial images are obtained through the abdomen and pelvis following administration of IV and oral contrast. Sagittal and coronal reformations are evaluated. FINDINGS: Lung bases are clear. There is a subcentimeter probable hemangioma within T11. Liver is normal. Gallbladder is contracted. Spleen, pancreas, and bilateral adrenal glands are normal. Kidneys are both atrophic, but functional, with no focal parenchymal abnormality and no hydronephrosis. There is extensive bilateral renal artery vascular calcification both involving the main renal artery as well as the hilar branches. There is severe bilateral renal artery atherosclerosis originate from its origin. Severe stenosis of the celiac artery is also noted. Moderate stenosis of the SMA is seen at its origin, though this appears to become focally severe approximately 4 cm distally. NATHALIA is patent but significantly atherosclerotic as well. Bulky aortofemoral atherosclerosis is seen with moderate stenosis of left common iliac artery, and severe stenosis of the proximal superficial femoral and profunda femoral arteries bilaterally. Severe multifocal internal iliac artery atherosclerosis is present as well. No pathologic adenopathy is identified. No free or loculated fluid collections are seen. The urinary bladder is minimally fluid distended and grossly unremarkable. There is inhomogeneous opacification of large and small bowel. No gross bowel abnormalities are identified. Specifically no areas of bowel wall edema or bowel dilatation. No evidence of diverticulitis, though there are few diverticula. The appendix is normal. IMPRESSION: 1. Severe vasculopathy, with multifocal high-grade stenoses involving both renal arteries, as well as the mesenteric arteries, and the iliofemoral arteries as described above. There is no CT evidence of bowel ischemia, however clinical consideration for this possibility should be entertained. 2. A few small sigmoid diverticula with no evidence of acute diverticulitis. 3. Probable tiny hemangioma at T11. PQRS Compliance Statement: One or more of the following individualized dose reduction techniques were utilized for this examination: 1. Automated exposure control 2. Adjustment of the mA and/or kV according to patient size 3. Use of iterative reconstruction technique Electronically signed by: Robby Dumont MD (06/12/2020 3:53 PM) [id number]
== END ==
LOC: CT 12:11
PROVIDERS: ATTEND Internal Medicine Nephrology
DX: N18.6 End stage renal disease (principal); N26.1 Atrophy of kidney (terminal); I70.1 Atherosclerosis of renal artery; I70.8 Atherosclerosis of other arteries; K57.90 Diverticulosis of intestine, part unspecified, without perforation or abscess without bleeding; D18.09 Hemangioma of other sites
CPT/HCPCS: 74177; Q9967

== ENCOUNTER 2020-06-15 15:33 | Emergency (ER) | payer MEDICARE ==
[~2020-06-15] VITALS: Ht 160 cm; Wt 64.5 kg
[~2020-06-15 15:33] MED LIST changes: -IOHEXOL 240 MG/ML 50ML VIAL. ONE; -IOHEXOL 300 MG/ML 75 ML VIAL. IV ONE
[2020-06-15] MEDS ORDERED: MORPHINE SULFATE 4 MG/ML DISP.SYRIN. IV ONE ×2 (16:00→17:30)
[2020-06-15] MEDS ORDERED: cloNIDine HCL 0.1 MG TABLET PO ONE (16:00)
[2020-06-15] MEDS ORDERED: ONDANSETRON PF 4 MG/2 ML VIAL. IVP ONE (16:00)
--- NOTE | 2020-06-15 16:09 | RAD ---
INDICATION: Reason: headache, hypertensive / Spl. Instructions: / History: COMPARISON: None. TECHNIQUE: Axial CT images obtained through the head without intravenous contrast. One or more of the following individualized dose reduction techniques were utilized for this examination: 1. Automated exposure control; 2. Adjustment of the mA and/or kV according to patient size; 3. Use of iterative reconstruction technique. FINDINGS: No intracranial hemorrhage. No midline shift. Basal cisterns patents. Ventricles and sulci are globally prominent. No acute osseous abnormality. Partial opacification right maxillary sinus, could be from causes such as mucocele but only partially seen. Scattered foci of low attenuation within the white matter. There are some focal regions of encephalomalacia bilaterally. IMPRESSION: 1. No acute intracranial hemorrhage. 2. Scattered regions of low attenuation within the white matter. Non-specific in nature but frequently secondary to small vessel ischemic disease. If there is high clinical concern for acute causes clinically MRI could better assess acuity. 3. Multiple low-density foci bilaterally could be from prior infarcts with associated encephalomalacia. 4. Prominence of ventricles and sulci which is frequently secondary to age related volume loss. Electronically signed by: Ramon Edwards MD (06/15/2020 4:06 PM) [id number]
[2020-06-15 16:34] LABS: BASO # 0.1 x10^3/uL (0.0-0.2); BASO % 1 % (0-3); EOS % 1 % (0-3); HEMATOCRIT 33.8 % (36.0-47.0); HEMOGLOBIN 10.8 g/dL (12.0-15.5); LYMPH # 1.6 x10^3/uL (1.0-4.8); LYMPH % 23 % (24-48); MEAN CORPUSCULAR HEMOGLOBIN 28 pg (25-35); MEAN CORPUSCULAR HGB CONC 32 g/dL (31-37); MEAN CORPUSCULAR VOLUME 87 fL (79-100); MONO # 0.6 x10^3/uL (0.0-1.1); MONO % 8 % (0-9); NEUT # 4.9 x10^3uL (1.8-7.7); NEUT % 68 % (31-73); PLATELET COUNT 271 x10^3/uL (140-400); RED BLOOD COUNT 3.89 x10^6/uL (3.50-5.40); RED CELL DISTRIBUTION WIDTH 14.2 % (11.5-14.5); WHITE BLOOD COUNT 7.3 x10^3/uL (4.0-11.0)
[2020-06-15 16:37] LABS: CALCIUM 9.2 mg/dL (8.5-10.1); CREATININE 4.1 mg/dL (0.6-1.0); GFR 10.8; POTASSIUM 4.2 mmol/L (3.5-5.1)
[2020-06-15 16:43] LABS: ALBUMIN 3.3 g/dL (3.4-5.0); ALBUMIN/GLOBULIN RATIO 0.7 (1.0-1.7); MAGNESIUM 2.2 mg/dL (1.8-2.4); TOTAL BILIRUBIN 0.2 mg/dL (0.2-1.0); TOTAL PROTEIN 7.9 g/dL (6.4-8.2)
[2020-06-15] MEDS ORDERED: LABETALOL 20 MG/4 ML DISP.SYRIN. IVP ONE (17:30)
[2020-06-15 17:43] VITALS: BP 157/64
[2020-06-15] MEDS ORDERED: BUTA1CAP31 PO (17:53)
--- NOTE | 2020-06-15 17:54 | PHYS DOC ---
Past History Past Medical History: Hypertension, Migraines, Renal Disease Past Surgical History: Other Additional Past Surgical Histo: Shunt left arm Alcohol Use: None General Adult EDM: Chief Complaint: HEADACHE HPI: HPI: Patient is a 69-year-old female who was brought here by EMS from home due to headache. Patient has history of migraine headache and she been experiencing headache for couple days. The headache is on the left side of her face, denies any blurry vision. Patient has history of hypertension, end-stage renal failure, on hemodialysis. Patient is scheduled to have her dialysis again on Tuesday. Patient denies any chest pain, no fever, no cough, no nausea vomiting. Patient said the light make her headache worse. Patient says this is not the worst headache of her life, denies any injury. Patient denies any weakness or numbness anywhere. Review of Systems: Review of Systems: Constitutional: Denies fever or chills Eyes: Denies change in visual acuity HENT: Denies nasal congestion or sore throat Respiratory: Denies cough or shortness of breath Cardiovascular: Denies chest pain or edema GI: Denies abdominal pain, nausea, vomiting, bloody stools or diarrhea : Denies dysuria Musculoskeletal: Denies back pain or joint pain Integument: Denies rash Neurologic: Positive headache, no focal weakness or sensory changes Endocrine: Denies polyuria or polydipsia Lymphatic: Denies swollen glands Psychiatric: Denies depression or anxiety Current Medications: Current Meds: Current Medications Medications (Trade) Dose Ordered Sig/Deysi Start Time Stop Time Status Last Admin Dose Admin Clonidine HCl (Catapres) 0.2 mg 1X ONCE 06/15/20 16:00 06/15/20 16:01 DC 06/15/20 16:00 0.2 MG Labetalol HCl (Normodyne) 20 mg 1X ONCE 06/15/20 17:30 06/15/20 17:31 DC 06/15/20 17:28 20 MG Morphine Sulfate (Morphine 4mg Syringe) 4 mg 1X ONCE 06/15/20 17:30 06/15/20 17:31 DC 06/15/20 17:27 4 MG Ondansetron HCl (Zofran) 4 mg 1X ONCE 06/15/20 16:00 06/15/20 16:02 DC 06/15/20 16:00 4 MG Allergies: Allergies: Allergies Coded Allergies Type Severity Reaction Last Updated Verified Sulfa (Sulfonamide Antibiotics) Allergy Unknown 06/15/20 Yes Physical Exam: PE: Constitutional: Well developed, well nourished, no acute distress, non-toxic appearance. [] HENT: Normocephalic, atraumatic, bilateral external ears normal, oropharynx moist, no oral exudates, nose normal. No temporal artery tenderness to palpation Eyes: PERRLA, EOMI, conjunctiva normal, no discharge. [] Neck: Normal range of motion, no tenderness, supple, no stridor. [] Cardiovascular:Heart rate regular rhythm, no murmur [] Lungs & Thorax: Bilateral breath sounds clear to auscultation [] Abdomen: Bowel sounds normal, soft, no tenderness, no masses, no pulsatile masses. [] Skin: Warm, dry, no erythema, no rash. [] Back: No tenderness, no CVA tenderness. [] Extremities: No tenderness, no cyanosis, no clubbing, ROM intact, no edema. [] Neurologic: Alert and oriented X 3, normal motor function, normal sensory function, no focal deficits noted. [] Psychologic: Affect normal, judgement normal, mood normal. [] Current Patient Data: Labs: Laboratory Tests Test 06/15/20 16:15 White Blood Count 7.3 x10^3/uL (4.0-11.0) Red Blood Count 3.89 x10^6/uL (3.50-5.40) Hemoglobin 10.8 g/dL (12.0-15.5) L Hematocrit 33.8 % (36.0-47.0) L Mean Corpuscular Volume 87 fL (79-100) Mean Corpuscular Hemoglobin 28 pg (25-35) Mean Corpuscular Hemoglobin Concent 32 g/dL (31-37) Red Cell Distribution Width 14.2 % (11.5-14.5) Platelet Count 271 x10^3/uL (140-400) Neutrophils (%) (Auto) 68 % (31-73) Lymphocytes (%) (Auto) 23 % (24-48) L Monocytes (%) (Auto) 8 % (0-9) Eosinophils (%) (Auto) 1 % (0-3) Basophils (%) (Auto) 1 % (0-3) Neutrophils # (Auto) 4.9 x10^3uL (1.8-7.7) Lymphocytes # (Auto) 1.6 x10^3/uL (1.0-4.8) Monocytes # (Auto) 0.6 x10^3/uL (0.0-1.1) Eosinophils # (Auto) 0.0 x10^3/uL (0.0-0.7) Basophils # (Auto) 0.1 x10^3/uL (0.0-0.2) Sodium Level 137 mmol/L (136-145) Potassium Level 4.2 mmol/L (3.5-5.1) Chloride Level 100 mmol/L (98-107) Carbon Dioxide Level 31 mmol/L (21-32) Anion Gap 6 (6-14) Blood Urea Nitrogen 11 mg/dL (7-20) Creatinine 4.1 mg/dL (0.6-1.0) H Estimated GFR (Cockcroft-Gault) 10.8 BUN/Creatinine Ratio 3 (6-20) L Glucose Level 149 mg/dL (70-99) H Calcium Level 9.2 mg/dL (8.5-10.1) Magnesium Level 2.2 mg/dL (1.8-2.4) Total Bilirubin 0.2 mg/dL (0.2-1.0) Aspartate Amino Transferase (AST) 21 U/L (15-37) Alanine Aminotransferase (ALT) 14 U/L (14-59) Alkaline Phosphatase 70 U/L (46-116) Total Protein 7.9 g/dL (6.4-8.2) Albumin 3.3 g/dL (3.4-5.0) L Albumin/Globulin Ratio 0.7 (1.0-1.7) L Vital Signs: Vital Signs Date Time Temp Pulse Resp B/P (MAP) Pulse Ox O2 Delivery O2 Flow Rate FiO2 06/15/20 17:43 63 16 157/64 (95) 96 Room Air 06/15/20 15:40 97.8 EKG: EKG: [] Radiology/Procedures: Radiology/Procedures: [][address] [address] IMAGING REPORT Signed PATIENT: TOM ROJASOUNT: [id number] : 1950 LOCATION: ER AGE: 69 SEX: F EXAM STATUS: REG ER ORD. PHYSICIAN: SONIA STORM DO REASON: headache, hypertensive PROCEDURE: CT HEAD WO CONTRAST INDICATION: Reason: headache, hypertensive / Spl. Instructions: / History: COMPARISON: None. TECHNIQUE: Axial CT images obtained through the head without intravenous contrast. One or more of the following individualized dose reduction techniques were utilized for this examination: 1. Automated exposure control; 2. Adjustment of the mA and/or kV according to patient size; 3. Use of iterative reconstruction technique. FINDINGS: No intracranial hemorrhage. No midline shift. Basal cisterns patents. Ventricles and sulci are globally prominent. No acute osseous abnormality. Partial opacification right maxillary sinus, could be from causes such as mucocele but only partially seen. Scattered foci of low attenuation within the white matter. There are some focal regions of encephalomalacia bilaterally. IMPRESSION: 1. No acute intracranial hemorrhage. 2. Scattered regions of low attenuation within the white matter. Non-specific in nature but frequently secondary to small vessel ischemic disease. If there is high clinical concern for acute causes clinically MRI could better assess acuity. 3. Multiple low-density foci bilaterally could be from prior infarcts with associated encephalomalacia. 4. Prominence of ventricles and sulci which is frequently secondary to age related volume loss. Electronically signed by: Dangelo Mckenzie MD (06/15/2020 4:06 PM) [id number] DICTATED AND SIGNED BY: DANGELO MCKENZIE MD DATE: 06/15/20 1606 CC: PCP,UNKNOWN; SONIA STORM DO ~MTH0 0 Heart Score: Risk Factors: Risk Factors: DM, Current or recent (<one month) smoker, HTN, HLP, family history of CAD, obesity. Risk Scores: Score 0 - 3: 2.5% MACE over next 6 weeks - Discharge Home Score 4 - 6: 20.3% MACE over next 6 weeks - Admit for Clinical Observation Score 7 - 10: 72.7% MACE over next 6 weeks - Early Invasive Strategies Course & Med Decision Making: Course & Med Decision Making Pertinent Labs and Imaging studies reviewed. (See chart for details) Patient is a 69-year-old female with a history of migraine headache, presented to ER today due to headache that she been suffering for the last several days. Headache is on the left side of her face. It is not the worst headache of her life. CT scan her head did not show any acute problem. Patient blood pressure was elevated, patient was given medication for her blood pressure. Patient was also given medication for the headache, patient feel much better and her blood pressure improved. Patient was discharged home, her headache might be due to her blood pressure being elevated. Patient was instructed to follow-up with her family physician in 1 to 2 days for reevaluation. Patient was amenable to plan of care. Dragon Disclaimer: Dragon Disclaimer: This electronic medical record was generated, in whole or in part, using a voice recognition dictation system. Departure Departure: Impression: Primary Impression: Headache Additional Impression: Hypertension Disposition: 01 DC HOME SELF CARE/HOMELESS Condition: IMPROVED Referrals: ERIKA PEÑA MD (PCP) PLEASE CALL YOUR FAMILY DOCTOR FOR FOLLOW UP IN 1-2 DAYS Patient Instructions: General Headache Without Cause, Hypertension Additional Instructions: Thank you for visiting our Emergency Department. We appreciate you trusting us with your care. If any additional problems come up don't hesitate to return to visit us. Please follow up with your primary care provider so they can plan additional care if needed and know about the problem that you had. If symptoms worsen come back to the Emergency Department. Any concerning symptoms that start such as chest pain, shortness of air, weakness or numbness on one side of the body, running high fevers or any other concerning symptoms return to the ER. Scripts Butalbital/Aspirin/Caffeine (FIORINAL 50-325-40 MG CAPSULE) 1 Each Capsule 1 EACH PO QID PRN for HEADACHE, #12 CAP Prov: SONIA STORM DO 06/15/20 SONIA STORM DO Jun 15, 2020 17:54
== END 2020-06-15 18:06 | disposition home or self-care (01) ==
LOC: MERGE 15:33 → ER 15:33
DX: G43.909 Migraine, unspecified, not intractable, without status migrainosus (principal); I12.0 Hypertensive chronic kidney disease with stage 5 chronic kidney disease or end stage renal disease; N18.6 End stage renal disease; Z99.2 Dependence on renal dialysis; Z88.2 Allergy status to sulfonamides
CPT/HCPCS: 36415; 70450; 80053; 83735; 85025; 96374; 96375; 96376; 99285; J2270; J2405; J3490

== ENCOUNTER 2020-07-12 22:19 | Emergency (ER) | payer MEDICARE ==
[~2020-07-12] VITALS: Ht 157.5 cm; Wt 60.4 kg
[~2020-07-12 22:19] MED LIST changes: +BUTA1CAP31 PO
--- NOTE | 2020-07-12 22:26 | PHYS DOC ---
Past History Past Medical History: Anxiety, Arthritis, Bronchitis, CAD, CHF, COPD, CVA, Depression, Diabetes, High Cholesterol, Heart Disease, Hypertension, Renal Disease, Renal Failure, Other Past Surgical History: Hysterectomy, Oophorectomy, Other Additional Past Surgical Histo: DIALYSIS SHUNT LEFT ARM Smoking: Cigarettes Alcohol Use: None Drug Use: None Adult General Chief Complaint Chief Complaint: SHORTNESS OF BREATH HPI HPI Patient is a 69-year-old female who presents via EMS for shortness of breath. States this started this morning without any known inciting event, exposure, recent travel or trauma. Nothing known makes better or worse. Patient reports shortness of breath without cough, generalized abdominal cramping, nausea and numerous episodes of nonbloody nonbilious emesis. No fever, no falls, no headache, no chest pain, no cough, patient on dialysis with last session Tuesday as she typically takes this Tuesday without any missed dates recently. Reports having history of COPD as patient is a former smoker, does not have any inhalers for use at home, no known exacerbations the past 12 months Review of Systems Review of Systems Fourteen body systems of review of systems have been reviewed. See HPI for pertinent positives and negative responses, other urena all other systems are negative, non-pertinent or non-contributory Allergies Allergies Allergies Coded Allergies Type Severity Reaction Last Updated Verified DAISHA Inhibitors Allergy Intermediate 07/23/14 Yes Sulfa (Sulfonamide Antibiotics) Allergy Intermediate Rash 07/23/14 Yes atorvastatin Allergy Intermediate 07/23/14 Yes Physical Exam Physical Exam Constitutional: Well developed, well nourished, no acute distress, non-toxic appearance. [] HENT: Normocephalic, atraumatic, bilateral external ears normal, oropharynx moist, no oral exudates, nose normal. [] Eyes: PERRLA, EOMI, conjunctiva normal, no discharge. [] Neck: Normal range of motion, no tenderness, supple, no stridor. [] Cardiovascular:Heart rate regular rhythm, no murmur [] Lungs & Thorax: Bilateral breath sounds clear to auscultation [] Abdomen: Bowel sounds normal, soft, no tenderness, no masses, no pulsatile masses. [] Skin: Warm, dry, no erythema, no rash. [] Back: No tenderness, no CVA tenderness. [] Extremities: No tenderness, no cyanosis, no clubbing, ROM intact, no edema. [] Neurologic: Alert and oriented X 3, normal motor function, normal sensory function, no focal deficits noted. [] Psychologic: Affect normal, judgement normal, mood normal. [] Current Patient Data Vital Signs Vital Signs Date Time Temp Pulse Resp B/P (MAP) Pulse Ox O2 Delivery O2 Flow Rate FiO2 07/12/20 23:52 116 20 167/101 (123) 99 BiPAP/CPAP 07/12/20 22:45 97.4 15.0 Lab Results Laboratory Tests Test 07/12/20 22:35 07/12/20 22:47 White Blood Count 21.9 x10^3/uL (4.0-11.0) Red Blood Count 4.13 x10^6/uL (3.50-5.40) Hemoglobin 11.2 g/dL (12.0-15.5) Hematocrit 36.3 % (36.0-47.0) Mean Corpuscular Volume 88 fL (79-100) Mean Corpuscular Hemoglobin 27 pg (25-35) Mean Corpuscular Hemoglobin Concent 31 g/dL (31-37) Red Cell Distribution Width 14.8 % (11.5-14.5) Platelet Count 340 x10^3/uL (140-400) Neutrophils (%) (Auto) 63 % (31-73) Lymphocytes (%) (Auto) 30 % (24-48) Monocytes (%) (Auto) 5 % (0-9) Eosinophils (%) (Auto) 1 % (0-3) Basophils (%) (Auto) 1 % (0-3) Neutrophils # (Auto) 13.8 x10^3uL (1.8-7.7) Lymphocytes # (Auto) 6.5 x10^3/uL (1.0-4.8) Monocytes # (Auto) 1.1 x10^3/uL (0.0-1.1) Eosinophils # (Auto) 0.2 x10^3/uL (0.0-0.7) Basophils # (Auto) 0.3 x10^3/uL (0.0-0.2) Segmented Neutrophils % 55 % (35-66) Band Neutrophils % 2 % (0-9) Lymphocytes % 37 % (24-48) Monocytes % 4 % (0-10) Eosinophils % 2 % (0-5) Platelet Estimate Adequate (ADEQUATE) Prothrombin Time 9.9 SEC (9.4-11.4) Prothromb Time International Ratio 1.0 (0.9-1.1) Activated Partial Thromboplast Time < 21 SEC (23-33) Sodium Level 142 mmol/L (136-145) Potassium Level 3.8 mmol/L (3.5-5.1) Chloride Level 100 mmol/L (98-107) Carbon Dioxide Level 29 mmol/L (21-32) Anion Gap 13 (6-14) Blood Urea Nitrogen 16 mg/dL (7-20) Creatinine 6.8 mg/dL (0.6-1.0) Estimated GFR (Cockcroft-Gault) 7.3 BUN/Creatinine Ratio 2 (6-20) Glucose Level 206 mg/dL (70-99) Lactic Acid Level 3.9 mmol/L (0.4-2.0) Calcium Level 10.1 mg/dL (8.5-10.1) Total Bilirubin 0.5 mg/dL (0.2-1.0) Aspartate Amino Transf (AST/SGOT) 32 U/L (15-37) Alanine Aminotransferase (ALT/SGPT) 11 U/L (14-59) Alkaline Phosphatase 88 U/L (46-116) Troponin I Quantitative 0.104 ng/mL (0-0.055) Total Protein 8.7 g/dL (6.4-8.2) Albumin 3.5 g/dL (3.4-5.0) Albumin/Globulin Ratio 0.7 (1.0-1.7) Lipase 80 U/L (73-393) Blood Gas pH 7.36 (7.35-7.45) Blood Gas PCO2 54 mmHg (35-45) Blood Gas PO2 51 mmHg (80-100) Blood Gas HCO3 31 mmol/L (22-26) Arterial Bld O2 Saturation (Calc) 83 % (92-99) FiO2 100 % EKG EKG EKG ordered and interpreted by myself at 2235 hrs. as sinus rhythm at 134 bpm, unremarkable intervals, left axis deviation, ST wave depressions noted in leads II, III, aVF, V4, V5 and V6 with T wave inversions noted to leads aVL and suspect ST elevation in lead aVR. This was compared to prior EKG performed April 06, 2019 with findings previously noted not apparent on prior EKG Repeat EKG performed after improvement in patient's blood pressure control and respiratory status, interpreted by myself at 000 0 hours as sinus rhythm at 117 bpm, prolonged QTC at 504 otherwise unremarkable intervals, no axis deviation, near complete improvement in ST wave depression abnormalities noted in initial EKG, no STEMI Radiology/Procedures Radiology/Procedures Single view chest dated 07/12/2020. Comparison dated 04/06/2019. CLINICAL INDICATION: Shortness of breath. FINDINGS: single upright portable exam performed. Heart and mediastinal contours are stable. There is widespread nodular airspace disease, predominantly at the perihilar regions. No significant pleural effusion. No pneumothorax. IMPRESSION: Widespread perihilar airspace disease, suspicious for pneumonia. Covid 19 pneum onitis not excluded. Electronically signed by: Nilesh Ortiz MD (07/12/2020 11:11 PM) [facility] – [place] Heart Score HEART Score for Chest Pain: HEART Score for Chest Pain Response (Comments) Value History Moderately Suspicious [address] Depression 2 Age > 65 2 Risk Factors >3 Risk Factors or Hx CAD 2 Troponin >3 x Normal Limit 2 Total 9 Risk Factors: Risk Factors: DM, Current or recent (<one month) smoker, HTN, HLP, family history of CAD, obesity. Risk Scores: Risk Factors: DM, Current or recent (<one month) smoker, HTN, HLP, family history of CAD, obesity. Course & Med Decision Making Course & Med Decision Making Pertinent Labs and Imaging studies reviewed. (See chart for details) ED work-up concerning for sepsis with likely source being respiratory in origin, cannot rule out COVID-19 infection and so swab was performed and pending. 2 g IV Rocephin and 500 mg azithromycin in addition to 6 mg dexamethasone administered Patient presented hypoxic on room air and tachypneic in obvious respiratory distress but this resolved with BiPAP Patient also presented markedly hypertensive with initial reading 230/130, IV nitro drip started with significant improvement in patient's symptoms in addition to concerning EKG findings Patient likely suffering type II NSTEMI secondary to supply demand mismatch from respiratory distress, deferred heparin use at this time and will continue to medically manage Discussed need for transport for higher acuity of care at [facility] where nephrology services to provide hemodialysis etc., Dr. Ramirez accepted patient under his care Patient updated on decision to transfer and she was amenable, all questions and concerns addressed prior to [facility] although stabilized, in critical condition for continued inpatient management Critical Care Time This patient required critical care. Due to the fact that the patient required a significant amount of one on one physician - patient contact time, ordering and review of studies, arranging urgent treatment with development of a management plan, evaluation of patients response to treatment with frequent reassessments, and discussions with other providers this patient required critical care time in excess of 30 minutes. Critical care time was indicated due to the inherent instability and/or potential for instability in this patient. The critical care time that is allocated to this patient is above and beyond any time spent on any other billable procedures performed on this patient. Dragon Disclaimer Dragon Disclaimer This electronic medical record was generated, in whole or in part, using a voice recognition dictation system. Departure Departure: Impression: Primary Impression: Sepsis Additional Impressions: Pneumonia Person under investigation for COVID-19 Hypertensive emergency ESRD (end stage renal disease) Acute respiratory failure with hypoxia Disposition: 02 DC/TRF OTHER SHORT TERM HOS ([facility]) Admitting Physician: Other (Dr. Ramirez) Condition: CRITICAL Referrals: ERIKA PEÑA MD (PCP) Problem Qualifiers MADONNA SANCHEZ DO Jul 12, 2020 22:26
[2020-07-12] MEDS ORDERED: ASPIRIN CHEWABLE 81 MG TABLET. ONE (22:27)
[2020-07-12 22:59] LABS: BGAS PH 7.36 (7.35-7.45)
[2020-07-12] MEDS ORDERED: NITROGLYCERIN PREMIX 250 ML IV ONE (23:00)
[2020-07-12] MEDS ORDERED: ASPIRIN CHEWABLE 81 MG TABLET. PO ONE (23:00)
[2020-07-12 23:03] LABS: BASO # 0.3 x10^3/uL (0.0-0.2); BASO % 1 % (0-3); EOS # 0.2 x10^3/uL (0.0-0.7); EOS % 1 % (0-3); HEMATOCRIT 36.3 % (36.0-47.0); HEMOGLOBIN 11.2 g/dL (12.0-15.5); LYMPH # 6.5 x10^3/uL (1.0-4.8); LYMPH % 30 % (24-48); MEAN CORPUSCULAR HEMOGLOBIN 27 pg (25-35); MEAN CORPUSCULAR HGB CONC 31 g/dL (31-37); MEAN CORPUSCULAR VOLUME 88 fL (79-100); MONO # 1.1 x10^3/uL (0.0-1.1); MONO % 5 % (0-9); NEUT # 13.8 x10^3uL (1.8-7.7); NEUT % 63 % (31-73); PLATELET COUNT 340 x10^3/uL (140-400); RED BLOOD COUNT 4.13 x10^6/uL (3.50-5.40); RED CELL DISTRIBUTION WIDTH 14.8 % (11.5-14.5); WHITE BLOOD COUNT 21.9 x10^3/uL (4.0-11.0)
--- NOTE | 2020-07-12 23:13 | RAD ---
Single view chest dated 07/12/2020. Comparison dated 04/06/2019. CLINICAL INDICATION: Shortness of breath. FINDINGS: single upright portable exam performed. Heart and mediastinal contours are stable. There is widesprea d nodular airspace disease, predominantly at the perihilar regions. No significant pleural effusion. No pneumothorax. IMPRESSION: Widespread perihilar airspace disease, suspicious for pneumonia. Covid 19 pneumonitis not excluded. Electronically signed by: Nilesh Ortiz MD (07/12/2020 11:11 PM) JUAN CARLOS
[2020-07-12 23:15] LABS: CALCIUM 10.1 mg/dL (8.5-10.1); CREATININE 6.8 mg/dL (0.6-1.0); GFR 7.3; POTASSIUM 3.8 mmol/L (3.5-5.1)
[2020-07-12 23:18] LABS: % BANDS 2 % (0-9); % EOS 2 % (0-5); % LYMPHS 37 % (24-48); % MONOS 4 % (0-10); % SEGS 55 % (35-66); PLT ESTIMATE ADEQUATE (ADEQUATE)
[2020-07-12 23:22] LABS: ALBUMIN 3.5 g/dL (3.4-5.0); ALBUMIN/GLOBULIN RATIO 0.7 (1.0-1.7); TOTAL BILIRUBIN 0.5 mg/dL (0.2-1.0); TOTAL PROTEIN 8.7 g/dL (6.4-8.2)
[2020-07-12] MEDS ORDERED: AZITHROMYCIN 500 MG VIAL. IV ONE (23:23)
[2020-07-12] MEDS ORDERED: IV NORMAL SALINE 500ML 500 ML ONE (23:24)
[2020-07-12] MEDS ORDERED: DEXAMETHASONE SOD PHOS 10 MG/ML VIAL. ONE (23:24)
[2020-07-12] MEDS ORDERED: DEXAMETHASONE SOD PHOS 4 MG/ML VIAL. IVP ONE (23:30)
[2020-07-12] MEDS ORDERED: AZITHROMYCIN 500 MG in IV NORMAL SALINE 250ML 250 ML IV ONE (23:45)
--- NOTE | 2020-07-12 23:48 | EKG ---
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
[2020-07-13] MEDS ORDERED: IV NORMAL SALINE 100ML 100 ML ONE (00:16)
[2020-07-13 04:05] VITALS: BP 127/61
--- NOTE | 2020-07-13 07:51 | EKG ---
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
== END 2020-07-13 04:10 | disposition short-term general hospital (02) ==
LOC: ER 22:19
DX: A41.9 Sepsis, unspecified organism (principal); J96.01 Acute respiratory failure with hypoxia; Z20.828 Contact with and (suspected) exposure to other viral communicable diseases; J18.9 Pneumonia, unspecified organism; N18.6 End stage renal disease; I16.1 Hypertensive emergency; F41.9 Anxiety disorder, unspecified; M19.90 Unspecified osteoarthritis, unspecified site; J44.9 Chronic obstructive pulmonary disease, unspecified; I11.0 Hypertensive heart disease with heart failure; I50.9 Heart failure, unspecified; E78.00 Pure hypercholesterolemia, unspecified; E11.9 Type 2 diabetes mellitus without complications; F17.210 Nicotine dependence, cigarettes, uncomplicated; Z86.73 Personal history of transient ischemic attack (TIA), and cerebral infarction without residual deficits; Z90.89 Acquired absence of other organs; Z90.710 Acquired absence of both cervix and uterus; Z98.890 Other specified postprocedural states; Z88.2 Allergy status to sulfonamides; Z88.8 Allergy status to other drugs, medicaments and biological substances
CPT/HCPCS: 36415; 71045; 80053; 82803; 83605; 83690; 84484; 85007; 85025; 85610; 85730; 87040; 93005; 96365; 96366; 96368; 96375; 99291; C9803; J0456; J0696; J1100; J3490; J7050; U0003

== ENCOUNTER 2020-08-27 00:11 | Emergency (ER) | payer MEDICARE ==
[~2020-08-27] VITALS: Ht 157.5 cm; Wt 60.4 kg
[~2020-08-27 00:11] MED LIST changes: -ISOS60TA2 PO; +ISOS60TA55 PO
--- NOTE | 2020-08-27 00:16 | PHYS DOC ---
Past History Past Medical History: Anxiety, Arthritis, Bronchitis, CAD, CHF, COPD, CVA, Depression, Diabetes, High Cholesterol, Heart Disease, Hypertension, Renal Disease, Renal Failure, Other Past Surgical History: Hysterectomy, Oophorectomy, Other Additional Past Surgical Histo: DIALYSIS SHUNT LEFT ARM Smoking: Cigarettes Alcohol Use: None Drug Use: None General Adult HPI: HPI: ".. I was getting ready to go to bed.. and I felt more short of breath... I am due for hemodialysis this morning....I due to be there at 8:30..am .. but then .. I was having of heat and chills.. but I asked to go to .. but these guys would not take me there....".." the fever and chills are weird... I an't been around anyone sick... I did eat some taco's.. but been taking my BP meds right...".." I had this before.. when I get fluid over.. loaded.."''... my chest is feels heavy'..." Patient is a 69 year old female who presents with above hx and complaints of accelerated hypertension. Pt. get hemodialysis on Tuesday and Fridays at [facility] hemodialysis here in [place]. Patient's primary channel marketing specialist for dialysis is Dr. Erika Mohan patient normally follows at for all her care. Patient requests to be transferred to however deferred by [place] paramedics. Patient states she has been compliant with her meds however has had some dietary noncompliance. No recent travel. No specific ill contacts. Her only contact with ill people are at the dialysis units. Patient recently admitted to for exacerbation of her underlying medical problems and renal failure. Patient has known past history of end-stage renal disease since 2013. Patient has hemodialysis on Wednesdays and Fridays. Patient does have a history of diabetes, hypertension, glaucoma, color blindness, hearing loss, coronary artery disease, and anemia. Patient still smokes cigarettes. Patient in the past with follow-up with Dr. Law myers however in the last few years has received all her care at . Patient does go to [facility] for her hemodialysis treatments here in [place]. Review of Systems: Review of Systems: Constitutional: Subjective complaints of fever or chills Eyes: Denies change in visual acuity HENT: Denies nasal congestion or sore throat Respiratory: Complains of a nonproductive cough and shortness of breath Cardiovascular: Complains of chest heaviness GI: Denies abdominal pain, nausea, vomiting, bloody stools or diarrhea : Denies dysuria Musculoskeletal: Denies back pain or joint pain Integument: Denies rash Neurologic: Denies headache, focal weakness or sensory changes Endocrine: Denies polyuria or polydipsia Lymphatic: Denies swollen glands Psychiatric: Denies depression or anxiety Family History: Family History: Noncontributory to presentation Current Medications: Current Meds: See nursing for home meds Allergies: Allergies: Allergies Coded Allergies Type Severity Reaction Last Updated Verified DAISHA Inhibitors Allergy Intermediate 07/23/14 Yes Sulfa (Sulfonamide Antibiotics) Allergy Intermediate Rash 07/23/14 Yes atorvastatin Allergy Intermediate 07/23/14 Yes Physical Exam: PE: Constitutional: in acute distress, chronically ill in appearance. [] HENT: Normocephalic, atraumatic, bilateral external ears normal, oropharynx moist, no oral exudates, nose normal. [] Eyes: PERRLA, EOMI, conjunctiva normal, no discharge. [] Neck: Normal range of motion, no tenderness, supple, no stridor. [] Cardiovascular:Heart rate regular rhythm, no murmur, PMI to the left Lungs & Thorax: Bilateral breath sounds diffuse crackles on auscultation [] Abdomen: Bowel sounds normal, soft, no tenderness, no masses, no pulsatile masses. Old surgical scar Skin: Warm, dry, no erythema, no rash. Poor turgor Back: No tenderness, no CVA tenderness. [] Extremities: No tenderness, no cyanosis, no clubbing, ROM intact, no edema. AV graft has good thrill in left arm Neurologic: Alert and oriented X 3, moves all extremities on request, has distal sensory, no gross focal deficits noted. [] Psychologic: Affect anxious, judgement normal, mood depressed EKG: EKG: My interpretation EKG shows a sinus rhythm at 86 beats per per minute. Does have left axis changes. Prolonged QT interval at 398 ms and QTC is 480 ms. No findings of acute STEMI of contralateral changes hyperdynamic QRSs in V leads [] Radiology/Procedures: Radiology/Procedures: [][address] [address] IMAGING REPORT Signed PATIENT: KAYLYNN ROJAS: [id number] : 1950 LOCATION: ER AGE: 69 SEX: F EXAM STATUS: REG ER ORD. PHYSICIAN: LY JASMINE MD REASON: dyspnea PROCEDURE: PORTABLE CHEST 1V AP chest x-ray HISTORY: Dyspnea. COMPARISON: Chest x-ray July 12, 2020. FINDINGS: Heart size normal. Thoracic aortic calcified plaque. There is bilateral hilar fullness which could be due to mild a perihilar infiltrates or superimposed hilar adenopathy. Overall the bilateral pulmonary opacities are decreased in volume and density since the prior study, with chronic or recurrent perihilar and lower lobe opacities remaining. Tiny pleural effusions along the lateral diaphragms could be present, stable. IMPRESSION: Perihilar lower lobe infiltrates as described above. This could be pulmonary edema versus multilobar infection. Electronically signed by: Rea Ayala MD (08/27/2020 12:47 AM) [facility] [place] DICTATED AND SIGNED BY: REA AYALA MD DATE: 08/27/2045 CC: ERIKA MOHAN MD; LY JASMINE MD ~MTH0 0 Heart Score: HEART Score for Chest Pain: HEART Score for Chest Pain Response (Comments) Value History Slighlty/Non-Suspicious 0 ECG Normal 0 Age > 65 2 Risk Factors 1 or 2 Risk Factors 1 Troponin >1-<3x Normal Limit 1 Total 4 Risk Factors: Risk Factors: DM, Current or recent (<one month) smoker, HTN, HLP, family history of CAD, obesity. Risk Scores: Score 0 - 3: 2.5% MACE over next 6 weeks - Discharge Home Score 4 - 6: 20.3% MACE over next 6 weeks - Admit for Clinical Observation Score 7 - 10: 72.7% MACE over next 6 weeks - Early Invasive Strategies Course & Med Decision Making: Course & Med Decision Making Pertinent Labs and Imaging studies reviewed. (See chart for details) Discussed presentation, testing and tx plan with [facility] transfer- Accepted in Transfer to Dr. Petersen accepting. Impression: 1. Accelerated hypertension 2. Pulmonary edema 3. Elevated troponin 0 0.081 4. Acute on chronic renal failure HD --Tue 5. Leukocytosis 12.1 6. Anemia hemoglobin 10.1 7. Diabetes glucose 144 [] Lucas Disclaimer: Lucas Disclaimer: This electronic medical record was generated, in whole or in part, using a voice recognition dictation system. Departure Departure: Referrals: ERIKA MOHAN MD (PCP) Lucas Disclaimer This chart was dictated in whole or in part using Voice Recognition software in a busy, high-work load, and often noisy Emergency Department environment. It may contain unintended and wholly unrecognized errors or omissions. LY JASMINE MD Aug 27, 2020 00:16
[2020-08-27] MEDS ORDERED: cloNIDine TTS-2 1 PATCH PATCH TD ONE ×2 (00:22→01:00)
[2020-08-27] MEDS ORDERED: cloNIDine HCL 0.1 MG TABLET ONE (00:23)
--- NOTE | 2020-08-27 00:50 | RAD ---
AP chest x-ray HISTORY: Dyspnea. COMPARISON: Chest x-ray July 12, 2020. FINDINGS: Heart size normal. Thoracic aortic calcified plaque. There is bilateral hilar fullness whic h could be due to mild a perihilar infiltrates or superimposed hilar adenopathy. Overall the bilater al pulmonary opacities are decreased in volume and density since the prior study, with chronic or rec urrent perihilar and lower lobe opacities remaining. Tiny pleural effusions along the lateral diaphra gms could be present, stable. IMPRESSION: Perihilar lower lobe infiltrates as described above. This could be pulmonary edema versus multilobar infection. Electronically signed by: Zaid Ayala MD (08/27/2020 12:47 AM) [facility]
[2020-08-27] MEDS ORDERED: cloNIDine HCL 0.1 MG TABLET PO ONE (01:00)
--- NOTE | 2020-08-27 01:46 | EKG ---
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
[2020-08-27 01:47] LABS: BASO # 0.1 x10^3/uL (0.0-0.2); BASO % 1 % (0-3); EOS % 0 % (0-3); HEMATOCRIT 31.8 % (36.0-47.0); HEMOGLOBIN 10.1 g/dL (12.0-15.5); LYMPH % 8 % (24-48); MEAN CORPUSCULAR HEMOGLOBIN 28 pg (25-35); MEAN CORPUSCULAR HGB CONC 32 g/dL (31-37); MEAN CORPUSCULAR VOLUME 87 fL (79-100); MONO # 0.8 x10^3/uL (0.0-1.1); MONO % 7 % (0-9); NEUT # 10.2 x10^3uL (1.8-7.7); NEUT % 84 % (31-73); PLATELET COUNT 275 x10^3/uL (140-400); RED BLOOD COUNT 3.64 x10^6/uL (3.50-5.40); RED CELL DISTRIBUTION WIDTH 16.1 % (11.5-14.5); WHITE BLOOD COUNT 12.1 x10^3/uL (4.0-11.0)
[2020-08-27 01:55] LABS: CALCIUM 9.2 mg/dL (8.5-10.1); CREATININE 7.6 mg/dL (0.6-1.0); GFR 6.4; POTASSIUM 3.8 mmol/L (3.5-5.1)
[2020-08-27 02:08] LABS: DIRECT BILIRUBIN 0.1 mg/dL (0.0-0.2); MAGNESIUM 2.1 mg/dL (1.8-2.4); TOTAL BILIRUBIN 0.3 mg/dL (0.2-1.0); TOTAL PROTEIN 6.8 g/dL (6.4-8.2)
[2020-08-27 02:39] VITALS: BP 153/74
[2020-08-27] MEDS ORDERED: levoFLOXacin 500 MG TABLET PO ONE (02:45)
== END 2020-08-27 04:00 | disposition short-term general hospital (02) ==
LOC: ER 00:11
DX: I13.2 Hypertensive heart and chronic kidney disease with heart failure and with stage 5 chronic kidney disease, or end stage renal disease (principal); R77.8 Other specified abnormalities of plasma proteins; E11.22 Type 2 diabetes mellitus with diabetic chronic kidney disease; N18.6 End stage renal disease; I50.1 Left ventricular failure, unspecified; D72.829 Elevated white blood cell count, unspecified; D64.9 Anemia, unspecified; F41.9 Anxiety disorder, unspecified; M19.90 Unspecified osteoarthritis, unspecified site; I25.10 Atherosclerotic heart disease of native coronary artery without angina pectoris; J44.9 Chronic obstructive pulmonary disease, unspecified; E11.9 Type 2 diabetes mellitus without complications; E78.00 Pure hypercholesterolemia, unspecified; F17.210 Nicotine dependence, cigarettes, uncomplicated; Z20.822 Contact with and (suspected) exposure to COVID-19; Z99.2 Dependence on renal dialysis; Z86.73 Personal history of transient ischemic attack (TIA), and cerebral infarction without residual deficits; Z88.8 Allergy status to other drugs, medicaments and biological substances; Z88.2 Allergy status to sulfonamides
CPT/HCPCS: 36415; 71045; 80048; 80076; 82550; 83690; 83735; 83880; 84443; 84484; 85025; 85610; 85730; 87040; 93005; 99285; C9803; U0003

== ENCOUNTER 2020-10-17 18:23 | Emergency (ER) | payer MEDICARE ==
[~2020-10-17] VITALS: Ht 157.5 cm; Wt 60.4 kg
--- NOTE | 2020-10-17 18:45 | PHYS DOC ---
Past History Past Medical History: Anxiety, Arthritis, Bronchitis, CAD, CHF, COPD, CVA, Depression, Diabetes, High Cholesterol, Heart Disease, Hypertension, Renal Disease, Renal Failure, Other Past Surgical History: Hysterectomy, Oophorectomy, Other Additional Past Surgical Histo: DIALYSIS SHUNT LEFT ARM Smoking: Cigarettes Alcohol Use: None Drug Use: None Adult General Chief Complaint Chief Complaint: ALTERED MENTAL STATUS HPI HPI Patient is a 69-year-old female presenting via POV for visual hallucinations. Patient is accompanied by a daughter whom she lives with. Daughter reports that patient has been "not acting like herself" for the past several weeks. States it patient had been suffering from visual hallucinations that acutely worsened in the past 12 hours without any known inciting event, recent change in medication or trauma. Patient went to dialysis today and had regular session but was reportedly nauseous and suffered "a few" episodes of nonbloody nonbilious emesis. She was deemed stable enough to go home; however, several hours after returning home patient had recurrence of visual hallucinations which worried daughter prompting her to come in for evaluation. On arrival, patient alert and oriented to person place and time. She recalls past medical history most significant for coronary artery disease, CHF, prior stroke and end-stage renal disease with dialysis scheduled Tuesday and Tuesday. Her only complaints at present include being cold, feelings of chest tightness/pressure that started after dialysis several hours prior, and suprapubic pain with decreased urination than usual. Again, patient is ESRD but admits making urine with decreased amount per usual past 24 hours Review of Systems Review of Systems Fourteen body systems of review of systems have been reviewed. See HPI for pertinent positives and negative responses, other urena all other systems are negative, non-pertinent or non-contributory Allergies Allergies Allergies Coded Allergies Type Severity Reaction Last Updated Verified DAISHA Inhibitors Allergy Intermediate 07/23/14 Yes Sulfa (Sulfonamide Antibiotics) Allergy Intermediate Rash 07/23/14 Yes atorvastatin Allergy Intermediate 07/23/14 Yes Physical Exam Physical Exam Constitutional: Well developed, well nourished, no acute distress, non-toxic appearance. HENT: Normocephalic, atraumatic, bilateral external ears normal, oropharynx dry, no oral exudates, nose normal. Eyes: PERRLA, EOMI, conjunctiva normal, no discharge. Neck: Normal range of motion, no tenderness, supple, no stridor. No nuchal ri gidity, no meningeal signs Cardiovascular: Heart rate regular, sinus rhythm, no reproducible chest pain with palpation Lungs & Thorax: Bilateral breath sounds clear to auscultation Abdomen: Bowel sounds normal, soft, mild suprapubic tenderness to palpation without guarding or rebound no masses, no pulsatile masses. Nonsurgical abdomen, no peritoneal signs Skin: Warm, dry, no erythema, no rash. Back: No tenderness, no CVA tenderness. Extremities: No tenderness, no cyanosis, no clubbing, ROM intact, no edema. Left upper extremity AV fistula present Neurologic: Alert and oriented X 3, grossly normal motor & sensory function, no focal deficits noted. Psychologic: Affect normal, judgement normal, mood normal. Current Patient Data Vital Signs Vital Signs Date Time Temp Pulse Resp B/P (MAP) Pulse Ox O2 Delivery O2 Flow Rate FiO2 10/17/20 23:18 87 18 180/82 (114) 96 Room Air 10/17/20 22:48 83 18 178/90 (119) 94 Room Air 10/17/20 22:24 87 198/98 10/17/20 22:18 83 18 194/98 (130) 96 Room Air 10/17/20 21:48 85 18 195/94 (127) 96 Room Air 10/17/20 21:18 82 18 194/94 (127) 96 Room Air 10/17/20 20:48 84 18 188/99 (128) 96 Room Air 10/17/20 20:18 83 18 181/92 (121) 98 Room Air 10/17/20 19:48 86 18 188/93 (124) 96 Room Air 10/17/20 19:21 88 18 186/93 (124) 96 Room Air 10/17/20 18:40 98.4 99 18 178/98 (124) 99 Room Air 10/17/20 18:36 94 18 178/98 (124) 96 Room Air 10/17/20 18:35 93 18 98 Room Air Lab Results Laboratory Tests Test 10/17/20 19:20 White Blood Count 8.3 x10^3/uL Red Blood Count 4.31 x10^6/uL Hemoglobin 11.8 g/dL Hematocrit 36.9 % Mean Corpuscular Volume 86 fL Mean Corpuscular Hemoglobin 27 pg Mean Corpuscular Hemoglobin Concent 32 g/dL Red Cell Distribution Width 15.7 % Platelet Count 286 x10^3/uL Neutrophils (%) (Auto) 71 % Lymphocytes (%) (Auto) 17 % Monocytes (%) (Auto) 9 % Eosinophils (%) (Auto) 2 % Basophils (%) (Auto) 1 % Neutrophils # (Auto) 5.9 x10^3uL Lymphocytes # (Auto) 1.4 x10^3/uL Monocytes # (Auto) 0.7 x10^3/uL Eosinophils # (Auto) 0.1 x10^3/uL Basophils # (Auto) 0.1 x10^3/uL Urine Collection Type U cath Urine Color Yellow Urine Clarity Clear Urine pH >8.5 Urine Specific [place] 1.020 Urine Protein >100 mg/dl Urine Glucose (UA) 100 mg/dL Urine Ketones (Stick) Neg mg/dL Urine Blood Large Urine Nitrite Neg Urine Bilirubin Neg Urine Urobilinogen Dipstick 0.2 mg/dL Urine Leukocyte Esterase Neg Urine RBC >40 /HPF Urine WBC 1-4 /HPF Urine Squamous Epithelial Cells Occ /LPF Urine Bacteria 0 /HPF Sodium Level 138 mmol/L Potassium Level 3.3 mmol/L Chloride Level 94 mmol/L Carbon Dioxide Level 35 mmol/L Anion Gap 9 Blood Urea Nitrogen 11 mg/dL Creatinine 4.2 mg/dL Estimated GFR (Cockcroft-Gault) 12.7 BUN/Creatinine Ratio 3 Glucose Level 193 mg/dL Calcium Level 10.3 mg/dL Total Bilirubin 0.4 mg/dL Aspartate Amino Transf (AST/SGOT) 25 U/L Alanine Aminotransferase (ALT/SGPT) 18 U/L Alkaline Phosphatase 57 U/L Troponin I Quantitative 0.239 ng/mL Total Protein 8.0 g/dL Albumin 3.3 g/dL Albumin/Globulin Ratio 0.7 Current Medications Medications (Trade) Dose Ordered Sig/Deysi Route PRN Reason Start Time Stop Time Status Last Admin Dose Admin Aspirin (Aspirin Chewable) 162 mg 1X ONCE PO 10/17/20 21:15 10/17/20 21:16 DC 10/17/20 21:45 Hydralazine HCl (Apresoline) 10 mg 1X ONCE PO 10/17/20 22:30 10/17/20 22:31 DC 10/17/20 22:24 EKG EKG EKG ordered and interpreted by myself at 1905 hrs. as sinus rhythm at 89 bpm, prolonged QTC at 520 otherwise unremarkable intervals, left axis deviation, T wave inversions noted in leads I, II, 3, aVF, V3, V4, V5 and V6, no STEMI Repeat EKG ordered and interpreted by myself at 2023 hrs. as sinus rhythm at 78 bpm, prolonged QTC at 515, left axis deviation, T wave inversions noted in leads I, II, 3, aVF, V3, V4, V5 and V6, no STEMI Prior EKG obtained August 27, 2020 and compared to the following obtained today. Sinus rhythm with left axis deviation and prolonged QT, T wave inversions noted above are all new versus prior EKGs Radiology/Procedures Radiology/Procedures PROCEDURE: CHEST AP ONLY INDICATION: Reason: ams. bibasilar crackles / Spl. Instructions: / History: COMPARISON: August 27, 2020 FINDINGS: Single view of chest obtained. Calcific atherosclerosis with similar appearance of cardiomediastinal silhouette compared to prior. No definite new region of consolidation or edema. IMPRESSION: * No focal airspace consolidation or edema. Electronically signed by: Ramon Edwards MD (10/17/2020 6:59 PM) [id number] Heart Score C/O Chest Pain: Yes HEART Score for Chest Pain: HEART Score for Chest Pain Response (Comments) Value History Moderately Suspicious 1 ECG Nonspecific Repolarizatio 1 Age > 65 2 Risk Factors >3 Risk Factors or Hx CAD 2 Troponin >3 x Normal Limit 2 Total 8 Risk Factors: Risk Factors: DM, Current or recent (<one month) smoker, HTN, HLP, family history of CAD, obesity. Risk Scores: Risk Factors: DM, Current or recent (<one month) smoker, HTN, HLP, family history of CAD, obesity. Course & Med Decision Making Course & Med Decision Making Hypertensive otherwise hemodynamically stable with history concerning of suspect UTI and chest pressure and high risk patient. Physical exam grossly unremarkable. Diagnostic work-up unremarkable besides new T wave inversions on EKG and elevated troponin 162 mg aspirin administered while in ER. Patient takes Plavix daily. Patient has known CAD, sees [facility] cardiology team. Per daughter, patient has had risk- benefit discussion in the past about PCI and stenting of unknown coronaries but continued medical management advised I discussed at present there is no indication for any antibiotics or other intervention. Patient has elevated troponin with history of chest tightness/pressure but is asymptomatic at present. I do not feel this is unstageable angina and no heparin is indicated at present Joint decision after extensive discussion with daughter had, all in favor for medical management and cardiac observation at [facility] where patient's cardiology team is. They will be able to trend EKGs and troponin and discuss need for intervention as indicated [facility] contacted and case discussed with Dr. Isidro who ultimately accepted patient under his care. Patient and daughter updated on this, they were both amenable to plan for transfer for hospital admission as stated for cardiac observation and continued monitoring for suspected visual hallucinations that were not observed/appreciated while in ER today. Patient has not had recurrence of nausea and/or vomit that was experienced after hemodialysis earlier in the day. Critical Care Time This patient required critical care. Due to the fact that the patient required a significant amount of one on one physician - patient contact time, ordering and review of studies, arranging urgent treatment with development of a management plan, evaluation of patients response to treatment with frequent reassessments, and discussions with other providers this patient required 35 minutes of critical care time. Critical care time was indicated due to the inherent instability and/or potential for instability in this patient. The critical care time that is allocated to this patient is above and beyond any time spent on any other billable procedures performed on this patient. Dragon Disclaimer Dragon Disclaimer This electronic medical record was generated, in whole or in part, using a voice recognition dictation system. Departure Departure: Impression: Primary Impression: Elevated troponin Additional Impressions: Acute electrocardiogram changes Hypertension ESRD (end stage renal disease) on dialysis Disposition: 02 DC/TRF OTHER SHORT TERM HOS ([facility]) Admitting Physician: Other (Dr. Isidro) Condition: STABLE Referrals: ERIKA PEÑA MD (PCP) Problem Qualifiers MADONNA SANCHEZ DO Oct 17, 2020 18:45
--- NOTE | 2020-10-17 19:02 | RAD ---
INDICATION: Reason: ams. bibasilar crackles / Spl. Instructions: / History: COMPARISON: August 27, 2020 FINDINGS: Single view of chest obtained. Calcific atherosclerosis with similar appearance of cardiomediastinal silhouette compared to prior. N o definite new region of consolidation or edema. IMPRESSION: * No focal airspace consolidation or edema. Electronically signed by: Ramon Edwards MD (10/17/2020 6:59 PM) [id number]
--- NOTE | 2020-10-17 19:12 | EKG ---
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
[2020-10-17 19:42] LABS: BASO # 0.1 x10^3/uL (0.0-0.2); BASO % 1 % (0-3); EOS # 0.1 x10^3/uL (0.0-0.7); EOS % 2 % (0-3); HEMATOCRIT 36.9 % (36.0-47.0); HEMOGLOBIN 11.8 g/dL (12.0-15.5); LYMPH # 1.4 x10^3/uL (1.0-4.8); LYMPH % 17 % (24-48); MEAN CORPUSCULAR HEMOGLOBIN 27 pg (25-35); MEAN CORPUSCULAR HGB CONC 32 g/dL (31-37); MEAN CORPUSCULAR VOLUME 86 fL (79-100); MONO # 0.7 x10^3/uL (0.0-1.1); MONO % 9 % (0-9); NEUT # 5.9 x10^3uL (1.8-7.7); NEUT % 71 % (31-73); PLATELET COUNT 286 x10^3/uL (140-400); RED BLOOD COUNT 4.31 x10^6/uL (3.50-5.40); RED CELL DISTRIBUTION WIDTH 15.7 % (11.5-14.5); WHITE BLOOD COUNT 8.3 x10^3/uL (4.0-11.0)
[2020-10-17 19:50] LABS: CALCIUM 10.3 mg/dL (8.5-10.1); CREATININE 4.2 mg/dL (0.6-1.0); GFR 12.7; POTASSIUM 3.3 mmol/L (3.5-5.1)
[2020-10-17 19:55] LABS: ALBUMIN 3.3 g/dL (3.4-5.0); ALBUMIN/GLOBULIN RATIO 0.7 (1.0-1.7); TOTAL BILIRUBIN 0.4 mg/dL (0.2-1.0)
--- NOTE | 2020-10-17 20:34 | EKG ---
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
[2020-10-17 20:35] LABS: BILIRUBIN,URINE NEG (NEG); CLARITY,URINE CLEAR; COLOR,URINE YELLOW; GLUCOSE,URINE 100 mg/dL (NEG)
[2020-10-17 20:36] LABS: BACTERIA,URINE 0 /HPF (0-FEW); NITRITE,URINE NEG (NEG); RBC,URINE >40 /HPF (0-2); SQUAMOUS EPITHELIAL CELL,UR OCC /LPF; UROBILINOGEN,URINE 0.2 mg/dL (0.2 mg/dL)
[2020-10-17] MEDS ORDERED: ASPIRIN CHEWABLE 81 MG TABLET. PO ONE (21:15)
[2020-10-17] MEDS ORDERED: hydrALAZINE 10 MG TABLET PO ONE (22:30)
[2020-10-17 23:18] VITALS: BP 180/82
== END 2020-10-18 00:35 | disposition short-term general hospital (02) ==
LOC: ER 18:23
DX: I13.2 Hypertensive heart and chronic kidney disease with heart failure and with stage 5 chronic kidney disease, or end stage renal disease (principal); E11.22 Type 2 diabetes mellitus with diabetic chronic kidney disease; N18.6 End stage renal disease; I50.9 Heart failure, unspecified; R77.8 Other specified abnormalities of plasma proteins; R94.31 Abnormal electrocardiogram [ECG] [EKG]; R44.1 Visual hallucinations; F41.9 Anxiety disorder, unspecified; M19.90 Unspecified osteoarthritis, unspecified site; I25.10 Atherosclerotic heart disease of native coronary artery without angina pectoris; J44.9 Chronic obstructive pulmonary disease, unspecified; E78.00 Pure hypercholesterolemia, unspecified; F17.210 Nicotine dependence, cigarettes, uncomplicated; Z99.2 Dependence on renal dialysis; Z86.73 Personal history of transient ischemic attack (TIA), and cerebral infarction without residual deficits; Z88.2 Allergy status to sulfonamides; Z88.8 Allergy status to other drugs, medicaments and biological substances
CPT/HCPCS: 36415; 71045; 80053; 81001; 84484; 85025; 93005; 99285; P9612; 99291-25

== ENCOUNTER 2020-12-02 11:43 | Emergency (ER) | payer MEDICARE ==
[~2020-12-02] VITALS: Ht 157.5 cm; Wt 60.4 kg
[2020-12-02] MEDS ORDERED: ASPIRIN 325 MG TABLET PO ONE (12:00)
[2020-12-02] MEDS ORDERED: hydrALAZINE 20 MG/ML VIAL. IV ONE ×2 (12:00→13:00)
[2020-12-02 12:08] LABS: BASO # 0.1 x10^3/uL (0.0-0.2); BASO % 1 % (0-3); EOS # 0.1 x10^3/uL (0.0-0.7); EOS % 1 % (0-3); HEMATOCRIT 35.8 % (36.0-47.0); HEMOGLOBIN 11.5 g/dL (12.0-15.5); LYMPH # 1.4 x10^3/uL (1.0-4.8); LYMPH % 28 % (24-48); MEAN CORPUSCULAR HEMOGLOBIN 28 pg (25-35); MEAN CORPUSCULAR HGB CONC 32 g/dL (31-37); MEAN CORPUSCULAR VOLUME 87 fL (79-100); MONO # 0.5 x10^3/uL (0.0-1.1); MONO % 9 % (0-9); NEUT # 3.1 x10^3uL (1.8-7.7); NEUT % 60 % (31-73); PLATELET COUNT 298 x10^3/uL (140-400); RED BLOOD COUNT 4.12 x10^6/uL (3.50-5.40); RED CELL DISTRIBUTION WIDTH 16.5 % (11.5-14.5); WHITE BLOOD COUNT 5.1 x10^3/uL (4.0-11.0)
[2020-12-02 12:25] LABS: ANION GAP 13 (6-14); BLOOD UREA NITROGEN 16 mg/dL (7-20); BUN/CREATININE RATIO 3 (6-20); CALCIUM 9.1 mg/dL (8.5-10.1); CARBON DIOXIDE 32 mmol/L (21-32); CHLORIDE 100 mmol/L (98-107); CREATININE 6.2 mg/dL (0.6-1.0); GFR 8.1; GLUCOSE 200 mg/dL (70-99); POTASSIUM 3.7 mmol/L (3.5-5.1); SODIUM 145 mmol/L (136-145)
[2020-12-02 12:42] LABS: ALBUMIN 3.5 g/dL (3.4-5.0); ALBUMIN/GLOBULIN RATIO 0.9 (1.0-1.7); ALK PHOS 70 U/L (46-116); ALT (SGPT) 19 U/L (14-59); AST (SGOT) 25 U/L (15-37); LIPASE 148 U/L (73-393); MAGNESIUM 2.2 mg/dL (1.8-2.4); TOTAL BILIRUBIN 0.3 mg/dL (0.2-1.0); TOTAL PROTEIN 7.4 g/dL (6.4-8.2)
--- NOTE | 2020-12-02 12:45 | PHYS DOC ---
Past History Past Medical History: Anxiety, Arthritis, Bronchitis, CAD, CHF, COPD, CVA, Depression, Diabetes, High Cholesterol, Heart Disease, Hypertension, Renal Disease, Renal Failure, Other Past Surgical History: Hysterectomy, Oophorectomy, Other Additional Past Surgical Histo: DIALYSIS SHUNT LEFT ARM Smoking: Quit Greater Than 1 Year Alcohol Use: None Drug Use: None General Adult EDM: Chief Complaint: CHEST PAIN HPI: HPI: 69-year-old female presents via EMS with report of midsternal chest pain. Patient had gone out to check her mail when she suddenly became dizzy and had exacerbation of some chest pain. Family was able to sit her down with some improvement of her symptoms. EMS was then called. EMS reports patient's blood pressure was elevated upon their arrival. Patient does report she has not taken her blood pressure medication yet this morning. Patient also felt very tired. Patient has significant history for CAD. Patient is also a hemodialysis patient on Tuesday/Tuesday/Tuesday. Patient reports she typically follows with car [employer] [facility] from . EMS reports giving patient 324mg of aspirin in route. Review of Systems: Review of Systems: Constitutional: Denies fever or chills Eyes: Denies redness or eye pain HENT: Denies nasal congestion or sore throat Respiratory: Denies cough or shortness of breath Cardiovascular: Reports chest pain; denies palpitations GI: Denies abdominal pain; reports nausea and vomiting : Denies dysuria or hematuria Musculoskeletal: Denies back pain or joint pain Integument: Denies rash or skin lesions Neurologic: Denies focal weakness or sensory changes; reports dizziness and headache Complete systems were reviewed and found to be within normal limits, except as documented in this note. Current Medications: Current Meds: Current Medications Medications (Trade) Dose Ordered Sig/[facility] Start Time Stop Time Status Last Admin Dose Admin Aspirin (Kain Aspirin) 325 mg 1X ONCE 12/02/20 12:00 12/02/20 12:01 DC Fentanyl Citrate (Fentanyl 2ml Vial) 50 mcg 1X ONCE 12/02/20 12:15 12/02/20 12:19 DC Hydralazine HCl (Apresoline) 10 mg 1X ONCE 12/02/20 12:00 12/02/20 12:05 DC 12/02/20 12:17 10 MG Allergies: Allergies: Allergies Coded Allergies Type Severity Reaction Last Updated Verified DAISHA Inhibitors Allergy Intermediate 07/23/14 Yes Sulfa (Sulfonamide Antibiotics) Allergy Intermediate Rash 07/23/14 Yes atorvastatin Allergy Intermediate 07/23/14 Yes Physical Exam: PE: Constitutional: Well developed, well nourished, no acute distress, non-toxic appearance HENT: Normocephalic, atraumatic Eyes: PERRL, EOMI, conjunctiva normal, no discharge, no nystagmus Neck: Normal range of motion, no tenderness, supple Lungs & Thorax: No respiratory distress, equal chest rise and fall Abdomen: Soft, no tenderness Skin: Warm, dry, no erythema, no rash Back: No tenderness, no CVA tenderness Extremities: No tenderness, ROM intact, no edema, left AV fistula noted to arm Neurologic: Alert and oriented X 3, normal motor function, normal sensory function, no focal deficits noted Psychologic: Affect normal, judgment normal Current Patient Data: Labs: Laboratory Tests Test 12/02/20 11:48 White Blood Count 5.1 x10^3/uL (4.0-11.0) Red Blood Count 4.12 x10^6/uL (3.50-5.40) Hemoglobin 11.5 g/dL (12.0-15.5) L Hematocrit 35.8 % (36.0-47.0) L Mean Corpuscular Volume 87 fL (79-100) Mean Corpuscular Hemoglobin 28 pg (25-35) Mean Corpuscular Hemoglobin Concent 32 g/dL (31-37) Red Cell Distribution Width 16.5 % (11.5-14.5) H Platelet Count 298 x10^3/uL (140-400) Neutrophils (%) (Auto) 60 % (31-73) Lymphocytes (%) (Auto) 28 % (24-48) Monocytes (%) (Auto) 9 % (0-9) Eosinophils (%) (Auto) 1 % (0-3) Basophils (%) (Auto) 1 % (0-3) Neutrophils # (Auto) 3.1 x10^3uL (1.8-7.7) Lymphocytes # (Auto) 1.4 x10^3/uL (1.0-4.8) Monocytes # (Auto) 0.5 x10^3/uL (0.0-1.1) Eosinophils # (Auto) 0.1 x10^3/uL (0.0-0.7) Basophils # (Auto) 0.1 x10^3/uL (0.0-0.2) Sodium Level 145 mmol/L (136-145) Potassium Level 3.7 mmol/L (3.5-5.1) Chloride Level 100 mmol/L (98-107) Carbon Dioxide Level 32 mmol/L (21-32) Anion Gap 13 (6-14) Blood Urea Nitrogen 16 mg/dL (7-20) Creatinine 6.2 mg/dL (0.6-1.0) H Estimated GFR (Cockcroft-Gault) 8.1 BUN/Creatinine Ratio 3 (6-20) L Glucose Level 200 mg/dL (70-99) H Calcium Level 9.1 mg/dL (8.5-10.1) Magnesium Level Pending Total Bilirubin Pending Aspartate Amino Transferase (AST) Pending Alanine Aminotransferase (ALT) Pending Alkaline Phosphatase Pending Creatine Kinase Pending Creatine Kinase MB (Mass) Pending Creatine Kinase MB Relative Index Pending Troponin I Quantitative 0.074 ng/mL (0-0.055) H [id number] Natriuretic Peptide Pending Total Protein Pending Albumin Pending Albumin/Globulin Ratio Pending Lipase Pending Vital Signs: Vital Signs Date Time Temp Pulse Resp B/P (MAP) Pulse Ox O2 Delivery O2 Flow Rate FiO2 12/02/20 12:35 81 16 189/92 (124) 95 Room Air 12/02/20 11:48 97.8 EKG: EKG: @1146 NSR at 82bpm,NO ST elevation, QRS 92ms, QT/QTc 418/492ms, slight ST depression II and V4-V6 Radiology/Procedures: Radiology/Procedures: PROCEDURE: CHEST AP ONLY INDICATION: Reason: chest pain / Spl. Instructions: / History: COMPARISON: October 17, 2020 FINDINGS: Single view of chest obtained. Calcific atherosclerosis. Cardiac silhouette is similar to prior. No definite new region of consolidation. IMPRESSION: * No focal airspace consolidation. Electronically signed by: Ramon Edwards MD (12/02/2020 12:53 PM) DESKTOP- [id number] PROCEDURE: CT HEAD WO CONTRAST Exam: CT head without contrast. Date: 12/02/2020, comparison:CT head without contrast from 03/10/2018 Indication: Headache Technique: 5 mm axial images of the head were obtained without contrast. Findings: There is low attenuation within the periventricular white matter, cerebellum and sara consistent with chronic small vessel ischemic disease. Findings are stable Prominence of cortical sulci and ventricular system is noted. There is cerebral atrophy. Midline structures are central. No hydrocephalus. No suspicious cerebral edema. No mass lesion or midline shift is seen. No extra axial fluid collection, intracranial hemorrhage or acute ischemia is detected. The visualized paranasal sinuses and mastoid air cells are clear. The osseous calvarium appears unremarkable. Impression: 1.Chronic small vessel ischemic disease and cerebral atrophy. 2.No acute findings. PQRS Compliance Statement: One or more of the following individualized dose reduction techniques were utilized for this examination: 1. Automated exposure control 2. Adjustment of the mA and/or kV according to patient size 3. Use of iterative reconstruction technique Electronically signed by: Virgie Grant MD (12/02/2020 1:10 PM) [id number] Heart Score: C/O Chest Pain: Yes HEART Score for Chest Pain: HEART Score for Chest Pain Response (Comments) Value History Moderately Suspicious 1 ECG Normal 0 Age > 65 2 Risk Factors >3 Risk Factors or Hx CAD 2 Troponin >1-<3x Normal Limit 1 Total 6 Risk Factors: Risk Factors: DM, Current or recent (<one month) smoker, HTN, HLP, family history of CAD, obesity. Risk Scores: Score 0 - 3: 2.5% MACE over next 6 weeks - Discharge Home Score 4 - 6: 20.3% MACE over next 6 weeks - Admit for Clinical Observation Score 7 - 10: 72.7% MACE over next 6 weeks - Early Invasive Strategies Course & Med Decision Making: Course & Med Decision Making Pertinent Labs and Imaging studies reviewed. (See chart for details) Patient presents via EMS with report of chest pain. Patient with significant cardiac risk factors. EKG stable. Labs obtained and posted to chart. Troponin slightly elevated but indeterminate. Elevation likely secondary to renal disease. Patient also with elevated blood pressure upon arrival which was addressed. Patient does complain of some headache and dizziness. CT head therefore obtained without acute process. Chest x-ray stable. Pain addressed. Patient subsequently became nauseated after Fentanyl. Zofran therefore provided. Patient requiring admission for further evaluation and treatment to facility with Procedures Nurse capability and nephrology. Patient requesting to be transferred for admission to . Dr. Reji Vides (hospitalist) accepting of transfer to for admission. Discussed findings and plan with patient, who acknowledges understanding and agreement. Lucas Disclaimer: Lucas Disclaimer: This electronic medical record was generated, in whole or in part, using a voice recognition dictation system. Departure Departure: Impression: Primary Impression: Chest pain Qualified Codes: R07.9 - Chest pain, unspecified Additional Impressions: Hypertension Qualified Codes: I10 - Essential (primary) hypertension Elevated troponin ESRD on hemodialysis Disposition: 02 SHORT TERM HOSPITAL () Condition: GUARDED Referrals: ERIKA PEÑA MD (PCP) Critical Care Time Critical care time was 30 minutes which includes time at bedside, spent in discussion of patient's care with specialists and/or family members, with interpretation of laboratory and/or radiological studies and is exclusive of procedures. ROSALINDA HERNANDEZ DO December 02, 2020 12:45
--- NOTE | 2020-12-02 12:56 | RAD ---
INDICATION: Reason: chest pain / Spl. Instructions: / History: COMPARISON: October 17, 2020 FINDINGS: Single view of chest obtained. Calcific atherosclerosis. Cardiac silhouette is similar to prior. No definite new region of consolida tion. IMPRESSION: * No focal airspace consolidation. Electronically signed by: Ramon Edwards MD (12/02/2020 12:53 PM) [id number]
--- NOTE | 2020-12-02 13:13 | RAD ---
Exam: CT head without contrast. Date: 12/02/2020, comparison:CT head without contrast from 03/10/2018 Indication: Headache Technique: 5 mm axial images of the head were obtained without contrast. Findings: There is low attenuation within the periventricular white matter, cerebellum and sara consistent with chronic small vessel ischemic disease. Findings are stable Prominence of cortical sulci and ventricu lar system is noted. There is cerebral atrophy. Midline structures are central. No hydrocephalus. No suspicious cerebral edema. No mass lesion or mid line shift is seen. No extra axial fluid collection, intracranial hemorrhage or acute ischemia is de tected. The visualized paranasal sinuses and mastoid air cells are clear. The osseous calvarium appea rs unremarkable. Impression: 1.Chronic small vessel ischemic disease and cerebral atrophy. 2.No acute findings. PQRS Compliance Statement: One or more of the following individualized dose reduction techniques were utilized for this examinat ion: 1. Automated exposure control 2. Adjustment of the mA and/or kV according to patient size 3. Use of iterative reconstruction technique Electronically signed by: Virgie Grant MD (12/02/2020 1:10 PM) [id number]
[2020-12-02] MEDS ORDERED: ONDANSETRON PF 4 MG/2 ML VIAL. IVP ONE (13:30)
[2020-12-02] MEDS ORDERED: NITROGLYCERIN OINT 1 GM PACKET. ONE (13:48)
--- NOTE | 2020-12-02 13:54 | EKG ---
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
[2020-12-02] MEDS ORDERED: NITROGLYCERIN OINT 1 GM PACKET. TP ONE (14:00)
[2020-12-02 17:03] VITALS: BP 194/70
[2020-12-02] MEDS ORDERED: HEPARIN for IV BOLUS 10,000 UNIT/10 ML VIAL. IV ONE (17:45)
== END 2020-12-02 17:32 | disposition short-term general hospital (02) ==
LOC: ER 11:43
DX: I13.2 Hypertensive heart and chronic kidney disease with heart failure and with stage 5 chronic kidney disease, or end stage renal disease (principal); E11.22 Type 2 diabetes mellitus with diabetic chronic kidney disease; N18.6 End stage renal disease; I50.9 Heart failure, unspecified; R07.2 Precordial pain; R77.8 Other specified abnormalities of plasma proteins; F41.9 Anxiety disorder, unspecified; M19.90 Unspecified osteoarthritis, unspecified site; I25.10 Atherosclerotic heart disease of native coronary artery without angina pectoris; J44.9 Chronic obstructive pulmonary disease, unspecified; E78.00 Pure hypercholesterolemia, unspecified; Z86.73 Personal history of transient ischemic attack (TIA), and cerebral infarction without residual deficits; Z99.2 Dependence on renal dialysis; Z87.891 Personal history of nicotine dependence; Z88.2 Allergy status to sulfonamides; Z88.8 Allergy status to other drugs, medicaments and biological substances
CPT/HCPCS: 36415; 70450; 71045; 80053; 82553; 83690; 83735; 83880; 84484; 85025; 85379; 85610; 85730; 93005; 96374; 96375; 96376; 99291; J0360; J2405; J3010

== ENCOUNTER 2020-12-22 23:34 | Emergency (ER) | payer MEDICARE ==
[~2020-12-22] VITALS: Ht 157.5 cm; Wt 51.6 kg
--- NOTE | 2020-12-22 23:42 | PHYS DOC ---
Past History Past Medical History: Anxiety, Arthritis, Bronchitis, CAD, CHF, COPD, CVA, Depression, Diabetes, High Cholesterol, Heart Disease, Hypertension, Renal Disease, Renal Failure, Other Past Surgical History: Hysterectomy, Oophorectomy, Other Additional Past Surgical Histo: DIALYSIS SHUNT LEFT ARM Smoking: Quit Greater Than 1 Year Alcohol Use: None Drug Use: None General Adult HPI: HPI: ".. I can't breath... I missed dialysis.. I can't breath.. I can't breath.. " Patient is a 70 year old female who presents with above hx and complaints dyspnea after missing hemodialysis this week . Pt. normally get HD on , , Tue. Pt. has been noncompliant with her hypertensive meds and diet.. Patient n ormally follows with Dr. Mohan for her renal issues medical issues. Patient also follows at for surgery and medical care. Patient pt. daughter refused to have pt. transported to [facility]. currently on high volume diversion. Pt. presents on 100 % oxygen. Patient has past medical history of diabetes, hypertension, glaucoma, chronic renal failure with hemodialysis. Patient has history of dementia, hearing loss, color blindness, anemia of chronic disease, tobacco use, COPD, constipation, hypertension, protein malnutrition, hypocalcemia, hypomagnesium, metabolic acidosis, hyperkalemia, TIAs, CVAs, dementia, and deconditioning. Patient obvious pulmonary edema and accelerated hypertension. Review of Systems: Review of Systems: Review of systems: Limited because of patient's critical respiratory status Respiratory: Complains of severe shortness of breath Family History: Family History: Noncontributory to presentation Current Medications: Current Meds: See nursing for home meds Allergies: Allergies: Allergies Coded Allergies Type Severity Reaction Last Updated Verified DAISHA Inhibitors Allergy Intermediate 07/23/14 Yes Sulfa (Sulfonamide Antibiotics) Allergy Intermediate Rash 07/23/14 Yes atorvastatin Allergy Intermediate 07/23/14 Yes Physical Exam: PE: Constitutional: in acute distress, in obvious respiratory distress HENT: Normocephalic, atraumatic, bilateral external ears normal, oropharynx moist, no oral exudates, nose normal. [] Eyes: PERRLA, EOMI, conjunctiva normal, no discharge. [] Neck: Normal range of motion, no tenderness, supple, no stridor. Kyphosis Cardiovascular: Tachycardia heart rate regular rhythm, no murmur, PMI to left Lungs & Thorax: Bilateral breath sounds wheezing rhonchi and crackles throughout on auscultation [] Abdomen: Bowel sounds decreased, soft, no tenderness, no masses, no pulsatile masses. Old surgical scars Skin: Warm, diaphoretic, no erythema, no rash. [] Back: No tenderness, no CVA tenderness. Scoliosis and kyphosis Extremities: No tenderness, no cyanosis, no clubbing, ROM intact, ankle edema. AV graft in left forearm has good thrill Neurologic: Alert and oriented X 3, moving extremities on request, has decreased distal sensory, no gross focal deficits from her base line per her daughter and pt. Psychologic: Affect anxious, panic, EKG: EKG: My interpretation EKG shows a sinus tachycardia 125 bpm. There is left axis. Anterior strain pattern. Abnormal EKG. [] Radiology/Procedures: Radiology/Procedures: [][address] [address] IMAGING REPORT Signed PATIENT: TOM ROJASOUNT: [id number] : 1950 LOCATION: ER AGE: 70 SEX: F EXAM STATUS: REG ER ORD. PHYSICIAN: LY JASMINE MD REASON: dyspnea PROCEDURE: PORTABLE CHEST 1V EXAM: AP View of the chest DATE: 12/22/2020 12:09 AM INDICATION: Reason: dyspnea / Spl. Instructions: / History: COMPARISON: 12/02/2020 FINDINGS/ IMPRESSION: The heart is not enlarged. Mediastinal and hilar contours are stable. Bilateral perihilar and right greater than left lung base airspace opacities likely multifocal consolidative process that pneumonia or pulmonary edema. Trace bilateral pleural effusions. No pneumothorax. Electronically signed by: Jasbir Rojas MD (12/23/2020 12:54 AM) [facility] DICTATED AND SIGNED BY: JASBIR ROJAS MD DATE: 12/23/20 0053 CC: LY JASMINE MD; PCP,UNKNOWN ~MTH0 0 Heart Score: C/O Chest Pain: Yes HEART Score for Chest Pain: HEART Score for Chest Pain Response (Comments) Value History Highly Suspicious [address] Depression 2 Age > 65 2 Risk Factors >3 Risk Factors or Hx CAD 2 Troponin >3 x Normal Limit 2 Total 10 Risk Factors: Risk Factors: DM, Current or recent (<one month) smoker, HTN, HLP, family history of CAD, obesity. Risk Scores: Score 0 - 3: 2.5% MACE over next 6 weeks - Discharge Home Score 4 - 6: 20.3% MACE over next 6 weeks - Admit for Clinical Observation Score 7 - 10: 72.7% MACE over next 6 weeks - Early Invasive Strategies Course & Med Decision Making: Course & Med Decision Making Pertinent Labs and Imaging studies reviewed. (See chart for details) Pt. placed on Bipap, and accelerated HTN txed with Nitropaste and Labetalol. Critical Care 90min Discussed presentation, testing, and treatment with Dr. Peterson- [facility] will accept pt in transfer to [facility]. Impression; 1. Respiratory failure-hypoxia 2. Accelerated hypertension 3. End-stage renal disease hemodialysis Wednesdays and Fridays 4. Critical hyper kalemia 5.8 5. Elevated troponin 0.115 6. Diabetes glucose 238 7. Hyper magnesium 2.6 8. Hx. Completed one Covid vaccination-has not had second vaccination 9. Dementia 10. Anemia of chronic disease- hemoglobin 11 [] Dragon Disclaimer: Dragon Disclaimer: This electronic medical record was generated, in whole or in part, using a voice recognition dictation system. Departure Departure: Referrals: PCP,UNKNOWN (PCP) Dragon Disclaimer This chart was dictated in whole or in part using Voice Recognition software in a busy, high-work load, and often noisy Emergency Department environment. It may contain unintended and wholly unrecognized errors or omissions. Dragon Disclaimer This chart was dictated in whole or in part using Voice Recognition software in a busy, high-work load, and often noisy Emergency Department environment. It may contain unintended and wholly unrecognized errors or omissions. Dragon Disclaimer This chart was dictated in whole or in part using Voice Recognition software in a busy, high-work load, and often noisy Emergency Department environment. It may contain unintended and wholly unrecognized errors or omissions. LY JASMINE MD December 22, 2020 23:42
[2020-12-22] MEDS: IPRATRPIUM/ALBUTEROL 0.5/2.5MG 3 ML NEBU. NEB ONE (23:45)
[2020-12-23 00:22] LABS: BGAS PH 7.46 (7.35-7.45)
[2020-12-23] MEDS: NITROGLYCERIN OINT 1 GM PACKET. TP ONE (00:24)
[2020-12-23] MEDS: LABETALOL 20 MG/4 ML DISP.SYRIN. IVP ONE (00:24)
[2020-12-23 00:50] LABS: BASO # 0.1 x10^3/uL (0.0-0.2); BASO % 1 % (0-3); EOS # 0.2 x10^3/uL (0.0-0.7); EOS % 2 % (0-3); HEMATOCRIT 34.2 % (36.0-47.0); LYMPH # 1.8 x10^3/uL (1.0-4.8); LYMPH % 18 % (24-48); MEAN CORPUSCULAR HEMOGLOBIN 28 pg (25-35); MEAN CORPUSCULAR HGB CONC 32 g/dL (31-37); MEAN CORPUSCULAR VOLUME 87 fL (79-100); MONO # 0.4 x10^3/uL (0.0-1.1); MONO % 4 % (0-9); NEUT # 7.2 x10^3uL (1.8-7.7); NEUT % 75 % (31-73); PLATELET COUNT 361 x10^3/uL (140-400); RED BLOOD COUNT 3.92 x10^6/uL (3.50-5.40); RED CELL DISTRIBUTION WIDTH 16.4 % (11.5-14.5); WHITE BLOOD COUNT 9.7 x10^3/uL (4.0-11.0)
--- NOTE | 2020-12-23 00:50 | EKG ---
[address] [address] Test Date: 2020-12-22 Test Time: 23:51:32 Pat Name: FAIZAN ROJAS Department: Room: Gender: F Barrel Lapper: : 1950 Requested By: LY JASMINE Order Number: [id number] Reading MD: Scott Moncada Measurements Intervals [place] Rate: 125 P: 47 ME: 126 QRS: -2 QRSD: 90 T: 66 QT: 304 QTc: 441 Interpretive Statements SINUS TACHYCARDIA LEFTWARD AXIS ST & T ABNORMALITY, CONSIDER ANTEROLATERAL ISCHEMIA OR LEFT VENTRICULAR STRAIN ABNORMAL ECG Electronically Signed On 12-23-2020 14:55:44 CDT by Scott Moncada
--- NOTE | 2020-12-23 00:56 | RAD ---
EXAM: AP View of the chest DATE: 12/22/2020 12:09 AM INDICATION: Reason: dyspnea / Spl. Instructions: / History: COMPARISON: 12/02/2020 FINDINGS/ IMPRESSION: The heart is not enlarged. Mediastinal and hilar contours are stable. Bilateral perihilar and right greater than left lung base airspace opacities likely multifocal consol idative process that pneumonia or pulmonary edema. Trace bilateral pleural effusions. No pneumothorax. Electronically signed by: Jasbir Lima MD (12/23/2020 12:54 AM) SAMMIE
[2020-12-23 01:09] LABS: CALCIUM 9.9 mg/dL (8.5-10.1); CREATININE 9.7 mg/dL (0.6-1.0); GFR 4.8; POTASSIUM 5.8 mmol/L (3.5-5.1)
[2020-12-23 01:18] LABS: ALBUMIN 3.5 g/dL (3.4-5.0); DIRECT BILIRUBIN 0.1 mg/dL (0.0-0.2); MAGNESIUM 2.7 mg/dL (1.8-2.4); TOTAL BILIRUBIN 0.4 mg/dL (0.2-1.0); TOTAL PROTEIN 8.1 g/dL (6.4-8.2)
[2020-12-23 02:51] VITALS: BP 183/70
== END 2020-12-23 02:56 | disposition short-term general hospital (02) ==
LOC: ER 23:34
DX: J96.91 Respiratory failure, unspecified with hypoxia (principal); I13.2 Hypertensive heart and chronic kidney disease with heart failure and with stage 5 chronic kidney disease, or end stage renal disease; E11.22 Type 2 diabetes mellitus with diabetic chronic kidney disease; N18.6 End stage renal disease; I50.1 Left ventricular failure, unspecified; E87.5 Hyperkalemia; R77.8 Other specified abnormalities of plasma proteins; E83.41 Hypermagnesemia; F03.90 Unspecified dementia, unspecified severity, without behavioral disturbance, psychotic disturbance, mood disturbance, and anxiety; D63.1 Anemia in chronic kidney disease; F41.9 Anxiety disorder, unspecified; M19.90 Unspecified osteoarthritis, unspecified site; I25.10 Atherosclerotic heart disease of native coronary artery without angina pectoris; J44.9 Chronic obstructive pulmonary disease, unspecified; F32.9 Major depressive disorder, single episode, unspecified; E78.00 Pure hypercholesterolemia, unspecified; Z99.2 Dependence on renal dialysis; Z87.891 Personal history of nicotine dependence; Z86.73 Personal history of transient ischemic attack (TIA), and cerebral infarction without residual deficits; Z88.2 Allergy status to sulfonamides; Z88.8 Allergy status to other drugs, medicaments and biological substances
CPT/HCPCS: 36415; 36600; 71045; 80048; 80076; 82550; 82803; 83605; 83735; 83880; 84443; 84484; 85025; 87040; 93005; 94640; 94660; 96374; 99291; 99292; J3490

== ENCOUNTER 2021-05-31 21:50 | Emergency (ER) | payer MEDICARE ==
[~2021-05-31] VITALS: Ht 152.4 cm; Wt 55.0 kg
[~2021-05-31 21:50] MED LIST changes: -CYCL-331 PO; +CYCL10TA19 PO
--- NOTE | 2021-05-31 21:54 | PHYS DOC ---
Past History Past Medical History: Anemia, Anxiety, Arthritis, Bronchitis, CAD, CHF, CVA, Depression, Diabetes, High Cholesterol, Heart Disease, Hypertension, Renal Disease, Renal Failure, Other Past Surgical History: Hysterectomy, Oophorectomy, Other Additional Past Surgical Histo: DIALYSIS SHUNT LEFT ARM Smoking: Quit Greater Than 1 Year Alcohol Use: None Drug Use: None General Adult HPI: HPI: ".. I can't breath.. I got my dialysis today... I see Dr. Mohan..... I just can't breath.. " Patient is a 70 year old female who presents with respiratory failure. Patient in severe respiratory distress, on 100% oxygen nonrebreather. Patient sats in the 80s. Patient denies she has completed her dialysis as directed. Patient states she has had no changes in meds. Patient normally follows with Dr. Mohan. Patient has significant past medical history for diabetes, anemia of chronic disease, constipation, protein malnutrition, hypocalcemia, hypertension, g laucoma, dementia, chronic renal failure, hemodialysis, hearing loss, and she is color blind. No recent travel. No severe ill contacts. Had several episodes of acute on chronic renal failure with hyperkalemia. Patient denies any recent travel. No specific ill contacts. No history immunosuppression. Patient does continue to smoke. Patient denies alcohol use. Lives alone. Review of Systems: Review of Systems: Constitutional: Denies fever or chills Eyes: Denies change in visual acuity HENT: Denies nasal congestion or sore throat Respiratory: Complains of cough and shortness of breath Cardiovascular: Denies chest pain or edema GI: Denies abdominal pain, nausea, vomiting, bloody stools or diarrhea : Denies dysuria Musculoskeletal: Denies back pain or joint pain Integument: Denies rash Neurologic: Denies headache, focal weakness or sensory changes Endocrine: Denies polyuria or polydipsia Lymphatic: Denies swollen glands Psychiatric: Denies depression or anxiety Family History: Family History: Noncontributory to presentation. Current Medications: Current Meds: See nursing for home meds Allergies: Allergies: Allergies Coded Allergies Type Severity Reaction Last Updated Verified DAISHA Inhibitors Allergy Intermediate 12/22/20 Yes Sulfa (Sulfonamide Antibiotics) Allergy Intermediate Rash 12/22/20 Yes atorvastatin Allergy Intermediate 12/22/20 Yes Physical Exam: PE: Constitutional: In acute distress, obvious respiratory failure and appearance. [] HENT: Normocephalic, atraumatic, bilateral external ears normal, oropharynx moist, no oral exudates, nose clear rhinorrhea Eyes: PERRLA, EOMI, conjunctiva pale, no discharge. [] Neck: Normal range of motion, no tenderness, supple, no stridor. JVD in the sitting position Cardiovascular: Tachycardia heart rate regular rhythm, no murmur []. PMI to the left Lungs & Thorax: Bilateral breath sounds equal apex with scattered crackles throughout and scattered wheezing on auscultation [] in tripod position with intercostal retraction Abdomen: Bowel sounds decreased , soft, no tenderness, no masses, no pulsatile masses. [] Skin: Warm, diaphoretic, no erythema, no rash. [] Back: No tenderness, no CVA tenderness. [] Extremities: No tenderness, no cyanosis, no clubbing, ROM intact, ankle edema. No cording. Left forearm AV has good thrill Neurologic: Alert, moves extremities on request,, decreased plantar sensation,, no focal deficits reported by patient. Psychologic: Affect panic, EKG: EKG: My interpretation of EKG shows a sinus rhythm with bimodal P waves, left axis deviation, anterior fascicular block, strain pattern, time EKG is 2333 hrs. Abnormal EKG [] Radiology/Procedures: Radiology/Procedures: [][address] [address] IMAGING REPORT Signed PATIENT: TOM ROJASOUNT: [id number] : 1950 LOCATION: ER AGE: 70 SEX: F EXAM STATUS: PRE ER ORD. PHYSICIAN: LY JASMINE MD REASON: resp. failure PROCEDURE: PORTABLE CHEST 1V Exam: Chest one view INDICATION: Heart failure TECHNIQUE: Frontal view of the Comparisons: 12/23/2020 FINDINGS: The cardiomediastinal silhouette and pulmonary vessels are within normal limits. Hazy opacity in lungs bilaterally. No pleural effusion. IMPRESSION: Findings likely related to pulmonary edema. Superimposed infectious process is difficult to exclude. Electronically signed by: Sudeep Oro MD (05/31/2021 11:07 PM) [facility] DICTATED AND SIGNED BY: SUDEEP ORO MD DATE: 05/31/21 7754 CC: LY JASMINE MD; PCP,UNKNOWN ~MTH0 0 Heart Score: C/O Chest Pain: Yes HEART Score for Chest Pain: HEART Score for Chest Pain Response (Comments) Value History Moderately Suspicious 1 ECG Nonspecific Repolarizatio 1 Age > 65 2 Risk Factors 1 or 2 Risk Factors 1 Troponin >1-<3x Normal Limit 1 Total 6 Risk Factors: Risk Factors: DM, Current or recent (<one month) smoker, HTN, HLP, family history of CAD, obesity. Risk Scores: Score 0 - 3: 2.5% MACE over next 6 weeks - Discharge Home Score 4 - 6: 20.3% MACE over next 6 weeks - Admit for Clinical Observation Score 7 - 10: 72.7% MACE over next 6 weeks - Early Invasive Strategies Course & Med Decision Making: Course & Med Decision Making Pertinent Labs and Imaging studies reviewed. (See chart for details) Arrangement for patient to transfer to [place] however daughter who is power of deputy commonwealth's attorney requested patient go to . [facility] transfer advised they had no beds for this patient. Daughter identifies patient should go to [facility]. Discussion with [id number] for [facility] hospitalized had no beds for this patient. Daughter agreed to allow us to try other hospitals to find placement.. [facility] agreed to accept patient in transfer- and [facility]. Critical - Bipap manaement, multiple calls for placement. 90 min Impression: 1. Acute respiratory failure-hypoxia 2. Acute accelerated hypertension 3. Acute pulmonary edema 4. End-stage renal disease-dialysis BUN 66/creatinine 8.5 5. Diabetes = glucose 192 6. Hyperkalemia 5.4 7. Leukocytosis 16. 8. Anemia Hgb= 11.5 [] Dragon Disclaimer: Dragon Disclaimer: This electronic medical record was generated, in whole or in part, using a voice recognition dictation system. Departure Departure: Referrals: PCP,UNKNOWN (PCP) Dragon Disclaimer This chart was dictated in whole or in part using Voice Recognition software in a busy, high-work load, and often noisy Emergency Department environment. It may contain unintended and wholly unrecognized errors or omissions. LY JASMINE MD May 31, 2021 21:54
[2021-05-31] MEDS ORDERED: NITROGLYCERIN OINT 1 GM PACKET. ONE (21:59)
[2021-05-31] MEDS ORDERED: clonazePAM 1 MG TABLET PO ONE (22:30)
[2021-05-31] MEDS ORDERED: cloNIDine TTS-2 1 PATCH PATCH TD ONE (22:30)
[2021-05-31] MEDS ORDERED: NITROGLYCERIN OINT 1 GM PACKET. TP ONE (22:30)
[2021-05-31] MEDS ORDERED: ALBUTEROL SULFATE 8GM INHALER. INH ONE (22:30)
[2021-05-31 23:04] LABS: BASO # 0.2 x10^3/uL (0.0-0.2); BASO % 1 % (0-3); EOS # 0.4 x10^3/uL (0.0-0.7); EOS % 2 % (0-3); HEMATOCRIT 35.9 % (36.0-47.0); HEMOGLOBIN 11.5 g/dL (12.0-15.5); LYMPH # 2.7 x10^3/uL (1.0-4.8); LYMPH % 17 % (24-48); MEAN CORPUSCULAR HEMOGLOBIN 29 pg (25-35); MEAN CORPUSCULAR HGB CONC 32 g/dL (31-37); MEAN CORPUSCULAR VOLUME 90 fL (79-100); MONO # 0.7 x10^3/uL (0.0-1.1); MONO % 5 % (0-9); NEUT % 75 % (31-73); PLATELET COUNT 378 x10^3/uL (140-400); RED CELL DISTRIBUTION WIDTH 15.5 % (11.5-14.5)
--- NOTE | 2021-05-31 23:10 | RAD ---
Exam: Chest one view INDICATION: Heart failure TECHNIQUE: Frontal view of the Comparisons: 12/23/2020 FINDINGS: The cardiomediastinal silhouette and pulmonary vessels are within normal limits. Hazy opacity in lungs bilaterally. No pleural effusion. IMPRESSION: Findings likely related to pulmonary edema. Superimposed infectious process is difficult to exclude. Electronically signed by: Sudeep Hanna MD (05/31/2021 11:07 PM) MEKHI
[2021-05-31 23:35] LABS: CALCIUM 9.1 mg/dL (8.5-10.1); CREATININE 8.5 mg/dL (0.6-1.0); GFR 5.6; POTASSIUM 5.4 mmol/L (3.5-5.1)
[2021-05-31 23:45] LABS: ALBUMIN 3.6 g/dL (3.4-5.0); DIRECT BILIRUBIN 0.1 mg/dL (0.0-0.2); MAGNESIUM 2.4 mg/dL (1.8-2.4); TOTAL BILIRUBIN 0.3 mg/dL (0.2-1.0); TOTAL PROTEIN 8.1 g/dL (6.4-8.2)
[2021-06-01] MEDS ORDERED: VANCOMYCIN PER PHARMACY MC PRN
[2021-06-01] MEDS ORDERED: VANCOMYCIN 1 GM in IV NORMAL SALINE 250ML 250 ML IV ONE
[2021-06-01 00:41] LABS: BGAS PH 7.46 (7.35-7.45)
[2021-06-01] MEDS ORDERED: VANCOMYCIN 1 GM VIAL. ONE (01:10)
[2021-06-01] MEDS ORDERED: IV NORMAL SALINE 250ML 250 ML ONE (01:10)
[2021-06-01] MEDS ORDERED: ONDANSETRON ODT 4 MG TAB.RAPDIS ONE (01:10)
[2021-06-01 01:41] LABS: % EOS 4 % (0-5); % LYMPHS 35 % (24-48); % MONOS 7 % (0-10); % SEGS 54 % (35-66); PLT ESTIMATE ADEQUATE (ADEQUATE)
[2021-06-01 02:30] VITALS: BP 142/70
--- NOTE | 2021-06-02 06:16 | EKG ---
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
--- NOTE | 2021-06-06 14:22 | EKG ---
[address] [address] Test Date: 2021-06-06 Test Time: 13:52:52 Pat Name: FAIZAN ROJAS Department: Room: Gender: F Track Welder: BRENNON : 1950 Requested By: LY JASMINE Order Number: [id number] Reading MD: Tej Suarez MD Measurements Intervals [place] Rate: 63 P: 47 MD: 160 QRS: -24 QRSD: 112 T: 127 QT: 468 QTc: 482 Interpretive Statements SINUS RHYTHM IVCD NON-SPECIFIC ST/T CHANGES Electronically Signed On 06-07-2021 13:49:02 VALVE INSERTER by Tej Suarez MD
== END 2021-06-01 02:56 | disposition short-term general hospital (02) ==
LOC: ER 21:50
DX: J96.01 Acute respiratory failure with hypoxia (principal); I13.2 Hypertensive heart and chronic kidney disease with heart failure and with stage 5 chronic kidney disease, or end stage renal disease; I50.1 Left ventricular failure, unspecified; N18.6 End stage renal disease; E11.22 Type 2 diabetes mellitus with diabetic chronic kidney disease; E87.5 Hyperkalemia; D72.829 Elevated white blood cell count, unspecified; D64.9 Anemia, unspecified; M19.90 Unspecified osteoarthritis, unspecified site; F41.9 Anxiety disorder, unspecified; I25.10 Atherosclerotic heart disease of native coronary artery without angina pectoris; F31.9 Bipolar disorder, unspecified; E78.00 Pure hypercholesterolemia, unspecified; Z20.822 Contact with and (suspected) exposure to COVID-19; Z99.2 Dependence on renal dialysis; Z87.891 Personal history of nicotine dependence; Z88.8 Allergy status to other drugs, medicaments and biological substances; Z88.2 Allergy status to sulfonamides
CPT/HCPCS: 36415; 36600; 71045; 80048; 80076; 82550; 82803; 83690; 83735; 83880; 84443; 84484; 85007; 85025; 85379; 85610; 85730; 87040; 87426; 93005; 94660; 96365; 99291; 99292; J3370; J7050

== ENCOUNTER 2021-06-06 13:37 | Emergency (ER) | payer MEDICARE ==
[~2021-06-06] VITALS: Ht 152.4 cm; Wt 55.0 kg
--- NOTE | 2021-06-06 13:44 | PHYS DOC ---
Past History Past Medical History: Anemia, Anxiety, Arthritis, Bronchitis, CAD, CHF, CVA, Depression, Diabetes, High Cholesterol, Heart Disease, Hypertension, Renal Disease, Renal Failure, Other Past Surgical History: Other Additional Past Surgical Histo: DIALYSIS SHUNT LEFT ARM Smoking: Quit Greater Than 1 Year Alcohol Use: None Drug Use: None Adult General Chief Complaint Chief Complaint: FATIGUE HPI HPI Patient is a 70-year-old female presenting via EMS for weakness. This is been a chronic issue as of late. Patient was reportedly hospitalized at [facility] for 5 days for fluid overload as she has end-stage renal disease on hemodialysis. Admits her last session was yesterday. States she was discharged this morning back home and shortly after arriving home, daughter reported that she could no longer care for patient and that she was requiring higher level of care than previously required. Daughter is concerned that she is more weak than usual and cannot assist with her ADLs prompting daughter to call EMS for transport to our facility for arrival. On arrival, patient has no complaints, just admits she feels tired. Specifically denies any fever, chest pain, ripping or tearing in torso, cough, abdominal pain, dysuria or other urinary symptoms, changes in motor or sensory or neuro function Review of Systems Review of Systems Fourteen body systems of review of systems have been reviewed. See HPI for pertinent positives and negative responses, other urena all other systems are negative, non-pertinent or non-contributory Allergies Allergies Allergies Coded Allergies Type Severity Reaction Last Updated Verified DAISHA Inhibitors Allergy Intermediate 12/22/20 Yes Sulfa (Sulfonamide Antibiotics) Allergy Intermediate Rash 12/22/20 Yes atorvastatin Allergy Intermediate 12/22/20 Yes Physical Exam Physical Exam Constitutional: Well developed, well nourished, no acute distress, non-toxic appearance. HENT: Normocephalic, atraumatic, bilateral external ears normal, oropharynx moist, no oral exudates, nose normal. Eyes: PERRLA, EOMI, conjunctiva normal, no discharge. Neck: Normal range of motion, no tenderness, supple, no stridor. Cardiovascular: Heart rate regular, sinus rhythm, no murmurs rubs or gallops Lungs & Thorax: Bilateral breath sounds clear to auscultation Abdomen: Bowel sounds normal, soft, no tenderness, no masses, no pulsatile masses. Nonsurgical abdomen, no peritoneal signs Skin: Warm, dry, no erythema, no rash. Back: No tenderness, no CVA tenderness. Extremities: No tenderness, no cyanosis, no clubbing, ROM intact, no edema. Well-appearing left upper extremity AV fistula on left forearm present Neurologic: Alert and oriented X 3, grossly normal motor & sensory function, no focal deficits noted. Psychologic: Affect normal, judgement normal, mood normal. Current Patient Data Vital Signs Vital Signs Date Time Temp Pulse Resp B/P (MAP) Pulse Ox O2 Delivery O2 Flow Rate FiO2 06/06/21 14:20 98.7 64 18 138/79 (98) 100 Vital Signs Date Time Temp Pulse Resp B/P (MAP) Pulse Ox O2 Delivery O2 Flow Rate FiO2 06/06/21 14:20 98.7 64 18 138/79 (98) 100 Lab Results Laboratory Tests Test 06/06/21 14:15 06/06/21 14:55 White Blood Count 6.2 x10^3/uL Red Blood Count 3.42 x10^6/uL Hemoglobin 9.8 g/dL Hematocrit 30.2 % Mean Corpuscular Volume 88 fL Mean Corpuscular Hemoglobin 29 pg Mean Corpuscular Hemoglobin Concent 33 g/dL Red Cell Distribution Width 15.3 % Platelet Count 277 x10^3/uL Neutrophils (%) (Auto) 73 % Lymphocytes (%) (Auto) 14 % Monocytes (%) (Auto) 10 % Eosinophils (%) (Auto) 2 % Basophils (%) (Auto) 1 % Neutrophils # (Auto) 4.5 x10^3uL Lymphocytes # (Auto) 0.9 x10^3/uL Monocytes # (Auto) 0.6 x10^3/uL Eosinophils # (Auto) 0.1 x10^3/uL Basophils # (Auto) 0.1 x10^3/uL Sodium Level 131 mmol/L Potassium Level 5.0 mmol/L Chloride Level 92 mmol/L Carbon Dioxide Level 29 mmol/L Anion Gap 10 Blood Urea Nitrogen 21 mg/dL Creatinine 5.2 mg/dL Estimated GFR (Cockcroft-Gault) 9.9 BUN/Creatinine Ratio 4 Glucose Level 125 mg/dL Calcium Level 9.5 mg/dL Phosphorus Level 3.9 mg/dL Magnesium Level 2.5 mg/dL Total Bilirubin 0.7 mg/dL Aspartate Amino Transf (AST/SGOT) 21 U/L Alanine Aminotransferase (ALT/SGPT) 18 U/L Alkaline Phosphatase 96 U/L Troponin I High Sensitivity 360 ng/L QL-Vcq-H-Type Natriuretic Peptide 54041 pg/mL Total Protein 7.6 g/dL Albumin 3.5 g/dL Albumin/Globulin Ratio 0.9 SARS-CoV-2 Antigen (Rapid) Negative Current Medications Medications (Trade) Dose Ordered Sig/Deysi Route PRN Reason Start Time Stop Time Status Last Admin Dose Admin Aspirin (Aspirin Chewable) 162 mg 1X ONCE PO 06/06/21 15:30 06/06/21 15:33 DC EKG EKG EKG ordered and interpreted by myself at 1355 hrs. as sinus rhythm at 63 bpm, prolonged QTC at 482, left axis deviation, T wave inversion noted in lead I, no STEMI Radiology/Procedures Radiology/Procedures EXAM: CHEST 1 VIEW History: Weakness, fluid overload COMPARISON: 05/31/2021 TECHNIQUE: Single portable radiograph of the chest FINDINGS: Mild cardiomegaly. Mild prominent bilateral interstitial lung markings likely mild congestive changes. The costophrenic sulci are clear and well demarcated. IMPRESSION: Mild congestive changes. Electronically signed by: Kit Nunez MD (06/06/2021 2:52 PM) [id number] Heart Score C/O Chest Pain: No HEART Score for Chest Pain: HEART Score for Chest Pain Response (Comments) Value History Moderately Suspicious 1 ECG Nonspecific Repolarizatio 1 Age > 65 2 Risk Factors >3 Risk Factors or Hx CAD 2 Troponin < Normal Limit 0 Total 6 Risk Factors: Risk Factors: DM, Current or recent (<one month) smoker, HTN, HLP, family history of CAD, obesity. Risk Scores: Risk Factors: DM, Current or recent (<one month) smoker, HTN, HLP, family history of CAD, obesity. Course & Med Decision Making Course & Med Decision Making ABCs unremarkable HPI physical exam and comprehensive ER work-up nonconcerning for any emergent or surgical issues With that said, patient is clinically fluid overload supported by chest x-ray and elevated BNP. She also has an elevated troponin in a high risk individual on hemodialysis and clinically fluid overloaded. No active chest pain at present, no indication for heparin drip There is concern about patient's ability to discharge back home as evident by her visit today. Daughter whom patient lives with cannot provide level of care that patient is demanding at present. There is obvious need for hospitalization but there is also need to investigate safe discharge planning that should include consideration of placement to a fci or other type of assisted facility [facility] was contacted as this is where patient has majority of her outpatient care was contacted and patient ultimately accepted for hospital transfer under the care of Dr. Yue Ge Patient notified of decision for transfer and amenable. All questions and concerns addressed. Only intervention provided at our facility prior to transfer was administration of 162 mg aspirin Dragon Disclaimer Dragon Disclaimer This electronic medical record was generated, in whole or in part, using a voice recognition dictation system. Departure Departure: Impression: Primary Impression: Weakness Additional Impressions: ESRD on hemodialysis Prolonged QT interval Elevated troponin Disposition: 02 SHORT TERM HOSPITAL ([facility]) Admitting Physician: Other (DR YUE GE) Condition: STABLE Referrals: PCP,UNKNOWN (PCP) Problem Qualifiers MADONNA SANCHEZ DO Jun 06, 2021 13:44
[2021-06-06 14:20] VITALS: BP 138/79
[2021-06-06 14:35] LABS: BASO # 0.1 x10^3/uL (0.0-0.2); BASO % 1 % (0-3); EOS # 0.1 x10^3/uL (0.0-0.7); EOS % 2 % (0-3); HEMATOCRIT 30.2 % (36.0-47.0); HEMOGLOBIN 9.8 g/dL (12.0-15.5); LYMPH # 0.9 x10^3/uL (1.0-4.8); LYMPH % 14 % (24-48); MEAN CORPUSCULAR HEMOGLOBIN 29 pg (25-35); MEAN CORPUSCULAR HGB CONC 33 g/dL (31-37); MEAN CORPUSCULAR VOLUME 88 fL (79-100); MONO # 0.6 x10^3/uL (0.0-1.1); MONO % 10 % (0-9); NEUT # 4.5 x10^3uL (1.8-7.7); NEUT % 73 % (31-73); PLATELET COUNT 277 x10^3/uL (140-400); RED BLOOD COUNT 3.42 x10^6/uL (3.50-5.40); RED CELL DISTRIBUTION WIDTH 15.3 % (11.5-14.5); WHITE BLOOD COUNT 6.2 x10^3/uL (4.0-11.0)
[2021-06-06 14:38] LABS: CALCIUM 9.5 mg/dL (8.5-10.1); CREATININE 5.2 mg/dL (0.6-1.0); GFR 9.9
[2021-06-06 14:50] LABS: ALBUMIN 3.5 g/dL (3.4-5.0); ALBUMIN/GLOBULIN RATIO 0.9 (1.0-1.7); MAGNESIUM 2.5 mg/dL (1.8-2.4); PHOSPHORUS 3.9 mg/dL (2.6-4.7); TOTAL BILIRUBIN 0.7 mg/dL (0.2-1.0); TOTAL PROTEIN 7.6 g/dL (6.4-8.2)
--- NOTE | 2021-06-06 14:55 | RAD ---
EXAM: CHEST 1 VIEW History: Weakness, fluid overload COMPARISON: 05/31/2021 TECHNIQUE: Single portable radiograph of the chest FINDINGS: Mild cardiomegaly. Mild prominent bilateral interstitial lung markings likely mild congest khalif changes. The costophrenic sulci are clear and well demarcated. IMPRESSION: Mild congestive changes. Electronically signed by: Kit Nunez MD (06/06/2021 2:52 PM) [id number]
[2021-06-06] MEDS ORDERED: ASPIRIN CHEWABLE 81 MG TABLET. PO ONE (15:30)
== END 2021-06-06 18:36 | disposition short-term general hospital (02) ==
LOC: ER 13:37
DX: E11.22 Type 2 diabetes mellitus with diabetic chronic kidney disease (principal); N18.6 End stage renal disease; I10 Essential (primary) hypertension; I45.81 Long QT syndrome; R77.8 Other specified abnormalities of plasma proteins; F41.9 Anxiety disorder, unspecified; M19.90 Unspecified osteoarthritis, unspecified site; I25.10 Atherosclerotic heart disease of native coronary artery without angina pectoris; E78.00 Pure hypercholesterolemia, unspecified; Z20.822 Contact with and (suspected) exposure to COVID-19; Z99.2 Dependence on renal dialysis; Z87.891 Personal history of nicotine dependence; Z86.73 Personal history of transient ischemic attack (TIA), and cerebral infarction without residual deficits; Z86.2 Personal history of diseases of the blood and blood-forming organs and certain disorders involving the immune mechanism; Z88.8 Allergy status to other drugs, medicaments and biological substances; Z88.2 Allergy status to sulfonamides
CPT/HCPCS: 71045; 80053; 83735; 83880; 84100; 84484; 85025; 87426; 99285; C9803; U0003

== ENCOUNTER 2021-11-07 19:24 | Emergency (ER) | payer MEDICARE ==
[~2021-11-07] VITALS: Ht 152.4 cm; Wt 55.0 kg
--- NOTE | 2021-11-07 20:13 | PHYS DOC ---
Past History Past Medical History: Anemia, Anxiety, Arthritis, Bronchitis, CAD, CHF, CVA, Depression, Diabetes, High Cholesterol, Heart Disease, Hypertension, Renal Disease, Renal Failure, Other Additional Past Medical Histor: end stage renal disease Past Surgical History: Hysterectomy, Oophorectomy, Other Additional Past Surgical Histo: DIALYSIS SHUNT LEFT ARM Smoking: Quit Greater Than 1 Year Alcohol Use: None Drug Use: None Adult General Chief Complaint Chief Complaint: CHEST PAIN HPI HPI Patient is a 70-year-old female with a past medical history significant for CAD, status post OH and stent placement, CHF, diabetes, COPD, hypertension and hyperlipidemia who presents with a chief complaint of chest pain, centralized, sharp in nature, 7 out of 10 that happened at home about an hour before coming in. States it is feeling a little better now after her nitroglycerin that EMS gave her. Denies any recent traumas, travels, fevers, shortness of breath, nausea, vomiting, diarrhea. States she is having some abdominal diste ntion/bloating which is new for her. States he is making urine and stool normally for her with no blood in either. States she has been eating and drinking normally. States she is taking all of her medicines as prescribed she thinks, because as her daughter give her the medicines. Review of Systems Review of Systems Review of systems otherwise unremarkable except noted in HPI Allergies Allergies Allergies Coded Allergies Type Severity Reaction Last Updated Verified DAISHA Inhibitors Allergy Intermediate 12/22/20 Yes Sulfa (Sulfonamide Antibiotics) Allergy Intermediate Rash 12/22/20 Yes atorvastatin Allergy Intermediate 12/22/20 Yes Physical Exam Physical Exam Constitutional: Well developed, well nourished, no acute distress, non-toxic appearance, appears fatigued. [] HENT: Normocephalic, atraumatic, bilateral external ears normal, oropharynx moist, no oral exudates, nose normal. [] Eyes: conjunctiva normal, no discharge. [] Neck: Normal range of motion, no tenderness, supple, no stridor. [] Cardiovascular:Heart rate regular rhythm, no murmur [] Lungs & Thorax: Mild bilateral rhonchi with no wheezing or respiratory distress Abdomen: soft, generalized tenderness with no rebound or guarding, no masses, no pulsatile masses. [] Skin: Warm, dry, no erythema, no rash. [] Back: No tenderness, no CVA tenderness. [] Extremities: No tenderness, no cyanosis, no clubbing, ROM intact, no edema. [] Neurologic: Alert and oriented X 3, normal motor function, normal sensory function, no focal deficits noted. [] Psychologic: Affect normal, judgement normal, mood normal. [] Current Patient Data Vital Signs Vital Signs Date Time Temp Pulse Resp B/P (MAP) Pulse Ox O2 Delivery O2 Flow Rate FiO2 11/07/21 19:28 72 16 156/79 (104) 99 EKG EKG [] Radiology/Procedures Radiology/Procedures [] Heart Score C/O Chest Pain: Yes HEART Score for Chest Pain: HEART Score for Chest Pain Response (Comments) Value History Moderately Suspicious 1 ECG Nonspecific Repolarizatio 1 Age > 65 2 Risk Factors >3 Risk Factors or Hx CAD 2 Total 6 Risk Factors: Risk Factors: DM, Current or recent (<one month) smoker, HTN, HLP, family history of CAD, obesity. Risk Scores: Risk Factors: DM, Current or recent (<one month) smoker, HTN, HLP, family history of CAD, obesity. Course & Med Decision Making Course & Med Decision Making Patient is a 70-year-old female with significant comorbidities who presents with chest pain Vital signs notable for hypertension. Physical exam noted above. Patient got nitro and aspirin in route. EKG with a rate of 71, QRS of 94, QTc of 452, no STEMI. High-sensitivity troponin at 156. Symptoms resolved upon arrival. Laboratory analysis approximately baseline postdialysis with elevated creatinine, slightly elevated potassium of 5.2, BNP at 21,000. CT of the chest abdomen pelvis notable for constipation otherwise unremarkable. Patient remained asymptomatic. Discussed all findings with patient and recommended admission for continued evaluation and treatment given elevated troponin and need for repeat EKGs and troponins. Patient grateful, verbalized understanding and agreed with plan of admission. [] Dragon Disclaimer Dragon Disclaimer This electronic medical record was generated, in whole or in part, using a voice recognition dictation system. Departure Departure: Impression: Primary Impression: Chest pain Additional Impressions: Dialysis patient Elevated troponin Disposition: [address] [facility] Admitting Physician: Other Condition: STABLE Referrals: PCP,UNKNOWN (PCP) Problem Qualifiers KATHLEEN GORMAN MD Nov 07, 2021 20:13
[2021-11-07 20:24] LABS: BASO # 0.3 x10^3/uL (0.0-0.2); BASO % 4 % (0-3); EOS # 0.3 x10^3/uL (0.0-0.7); EOS % 3 % (0-3); HEMATOCRIT 39.7 % (36.0-47.0); HEMOGLOBIN 12.8 g/dL (12.0-15.5); LYMPH # 1.1 x10^3/uL (1.0-4.8); LYMPH % 15 % (24-48); MEAN CORPUSCULAR HEMOGLOBIN 29 pg (25-35); MEAN CORPUSCULAR HGB CONC 32 g/dL (31-37); MEAN CORPUSCULAR VOLUME 90 fL (79-100); MONO # 0.6 x10^3/uL (0.0-1.1); MONO % 8 % (0-9); NEUT # 5.2 x10^3uL (1.8-7.7); NEUT % 70 % (31-73); PLATELET COUNT 335 x10^3/uL (140-400); RED BLOOD COUNT 4.43 x10^6/uL (3.50-5.40); RED CELL DISTRIBUTION WIDTH 14.7 % (11.5-14.5); WHITE BLOOD COUNT 7.5 x10^3/uL (4.0-11.0)
[2021-11-07 20:27] LABS: CALCIUM 8.9 mg/dL (8.5-10.1); CREATININE 6.7 mg/dL (0.6-1.0); GFR 7.4
[2021-11-07 20:40] LABS: ALBUMIN 3.2 g/dL (3.4-5.0); ALBUMIN/GLOBULIN RATIO 0.7 (1.0-1.7); MAGNESIUM 2.2 mg/dL (1.8-2.4); POTASSIUM 5.2 mmol/L (3.5-5.1); TOTAL BILIRUBIN 0.3 mg/dL (0.2-1.0); TOTAL PROTEIN 7.9 g/dL (6.4-8.2)
--- NOTE | 2021-11-07 20:42 | RAD ---
Exam: CT chest, abdomen and pelvis without contrast INDICATION: Chest pain, abdominal pain TECHNIQUE: Sequential axial images through the chest, abdomen and pelvis obtained without IV contrast . Sagittal and coronal reformatted images were reconstructed from the axial data and reviewed. Exposure: One or more of the following in the visualized dose reduction techniques were utilized for this examination: 1. Automated exposure control 2. Adjustment of the MA and/or KV according to patient size 3. Use of iterative of reconstructive technique Comparisons: CT abdomen and pelvis 06/12/2020 FINDINGS: Visualized portions of the thyroid are unremarkable. No enlarged central lymph nodes are identified. Heart size is normal. No pericardial effusion. Severe coronary artery calcifications. Thoracic aorta has a normal course and caliber. Pulmonary artery is not enlarged. Airways are patent. Mild bronchial wall thickening is noted. No consolidation or pneumothorax. No pleural effusion or thickening. Evaluation of solid abdominal organs is limited secondary to noncontrast technique. Liver, spleen, pancreas, gallbladder and adrenals are unremarkable. No perinephric inflammation or hydronephrosis. There is a isoattenuating cystic lesion at the upper p ole of the right kidney measuring approximately 1 cm. No ureteral calculi are identified. Bilateral n onobstructing renal calculi. Bladder is decompressed not well evaluated. Uterus is absent. No abnormal adnexal mass. Moderate amount of stool is noted in the colon. Appendix is normal. No free intra-abdominal air or fl uid. No obstruction. Abdominal aorta has normal course and caliber. No enlarged intra-abdominal lymph nodes. No suspicious osseous lesions or acute fractures. IMPRESSION: 1. Moderate amount stool in the colon, correlate for constipation. 2. Bilateral nonobstructing renal calculi. 3. No acute process identified within the chest. Electronically signed by: Sudeep Hanna MD (11/07/2021 8:39 PM) [facility]
[2021-11-07 21:51] VITALS: BP 167/57
--- NOTE | 2021-11-08 22:03 | EKG ---
[address] [address] Test Date: 2021-11-07 Test Time: 19:30:12 Pat Name: FAIZAN ROJAS Department: Room: Gender: F Operations Support Representative: KAI : 1950 Requested By: KATHLEEN GORMAN Order Number: [id number] Reading MD: Scott Moncada Measurements Intervals [place] Rate: 71 P: 51 MD: 136 QRS: -41 QRSD: 94 T: 126 QT: 416 QTc: 452 Interpretive Statements SINUS RHYTHM LEFT ATRIAL ABNORMALITY ABNORMAL LEFT AXIS DEVIATION LEFT ANTERIOR FASCICULAR BLOCK Electronically Signed On 11-11-2021 18:33:42 CDT by Scott Moncada
== END 2021-11-07 23:04 | disposition short-term general hospital (02) ==
LOC: ER 19:24
DX: R07.89 Other chest pain (principal); R77.8 Other specified abnormalities of plasma proteins; I13.2 Hypertensive heart and chronic kidney disease with heart failure and with stage 5 chronic kidney disease, or end stage renal disease; E11.22 Type 2 diabetes mellitus with diabetic chronic kidney disease; N18.6 End stage renal disease; I50.9 Heart failure, unspecified; F41.9 Anxiety disorder, unspecified; M19.90 Unspecified osteoarthritis, unspecified site; I25.10 Atherosclerotic heart disease of native coronary artery without angina pectoris; E78.00 Pure hypercholesterolemia, unspecified; Z20.822 Contact with and (suspected) exposure to COVID-19; Z99.2 Dependence on renal dialysis; Z86.73 Personal history of transient ischemic attack (TIA), and cerebral infarction without residual deficits; Z87.891 Personal history of nicotine dependence; Z88.8 Allergy status to other drugs, medicaments and biological substances; Z88.2 Allergy status to sulfonamides
CPT/HCPCS: 36415; 71250; 74176; 80053; 82533; 83735; 83880; 84443; 84484; 85025; 85610; 85730; 87426; 93005; 99285; C9803; U0003